=== PATIENT | male | born 1930 | race Caucasian/White ===

== ENCOUNTER 2020-09-27 12:02 | Inpatient (IN) ==
[2020-09-27] MEDS ORDERED: ALBUT/IPRATROP 3MG/0.5MG NEB 3 ML VIAL INH STA (12:38)
[2020-09-27] MEDS ORDERED: methylPREDNISolone 125 MG/2 ML VIAL IV STA (12:38)
[2020-09-27 12:50] LABS: Basophils # (auto) 0.04 K/uL (0-0.2); Basophils % (auto) 0.9 %; Eosinophils # (auto) 0.06 K/uL (0-0.5); Eosinophils % (auto) 1.3 %; Hematocrit (blood only) 49.9 % (42-52); Hemoglobin 16.7 g/dL (14.0-18.0); Immature Granulocytes # (auto) 0.01 K/uL (0.00-0.02); Immature Granulocytes % (auto) 0.2 %; Lymphocytes # (auto) 0.75 K/uL (1.2-3.4); Lymphocytes % (auto) 16.8 %; Mean Corpuscular Hemoglobin 33.7 pg (25-34); Mean Corpuscular Hgb Conc 33.5 g/dL (32-36); Mean Corpuscular Volume 100.6 fL (80-100); Mean Platelet Volume 11.9 fL (7.4-10.4); Monocytes # (auto) 0.57 K/uL (0.11-0.59); Monocytes % (auto) 12.8 %; Neutrophils # (auto) 3.03 K/uL (1.4-6.5); Platelet Count 122 K/uL (130-400); RDW Coefficient of Variation 14.4 % (11.5-14.5); RDW Standard Deviation 53.1 fL (36.4-46.3); Red Blood Count 4.96 M/uL (4.7-6.1); White Blood Count 4.46 K/uL (4.8-10.8)
[2020-09-27 12:57] LABS: Albumin Level 3.4 gm/dl (3.4-5.0); BUN Creatinine Ratio 15.6 (10-20); Calcium 9.1 mg/dl (8.5-10.1); Creatinine Clr Calc Pharmacy 46.4 ml/min; Est GFR (African American) 61.8; Est GFR (Non-African American) 53.3; Potassium 4.5 mmol/L (3.5-5.1)
[2020-09-27 13:00] LABS: INR 1.1 (0.9-1.1); Partial Thromboplastin Ratio 0.9; Partial Thromboplastin Time 24.2 Seconds (21.0-31.0); Prothrombin Time 11.3 Seconds (9.0-12.0)
[2020-09-27 13:01] LABS: Albumin Globulin Ratio 0.8 (0.9-2); Bilirubin,Total 0.9 mg/dl (0.2-1); Globulin 4.2 gm/dl (2.5-4.0); Total Protein 7.6 gm/dl (6.4-8.2); Troponin I 0.03 ng/ml (0-0.045)
[2020-09-27 13:13] LABS: Toxic Granulation 1+
--- NOTE | 2020-09-27 13:18 | XRay Report ---
XR chest 1V portable HISTORY: Dyspnea COMPARISON: Chest 06/10/2011. FINDINGS: No pneumothorax. Small right and trace left pleural effusions. Hazy focal density within th e left midlung zone. The right upper lobe is clear. Progressive consolidation within the right lower lung zone. The heart remains borderline enlarged. There are poststernotomy changes. No evidence for p ulmonary edema. No pneumothorax. Patchy densities at the left lung base of also slightly progressed. IMPRESSION: 1. Progressive bibasilar airspace opacities and a new left midlung zone hazy airspace opacity. This i s concerning for pneumonia. 1-2 month chest x-ray follow-up recommended to ensure resolution. 2. Small right and trace left pleural effusions. ACT 112: Negative or not required by law. Electronically signed by: Marlon Hwang M.D. 09/27/2020 1:17 PM
[2020-09-27 13:34] LABS: Appearance Urine Clear (Clear); Bilirubin Urine Negative (Negative); Blood Urine Negative (Negative); Color Urine Yellow; Glucose Urine UA Negative (Negative); Ketones Urine Negative (Negative); Leukocyte Esterase Urine Negative (Negative); Nitrite Urine Negative (Negative); Protein Urine Negative (Negative); Specific Gravity Urine 1.006 (1.000-1.030); Urobilinogen Urine Negative (Negative)
[2020-09-27] MEDS ORDERED: AZITHROMYCIN 500 MG in DEXTROSE 5% 250 ML IV STA (13:53)
[2020-09-27] MEDS ORDERED: cefTRIAXone SODIUM 2,000 MG/70 ML BAG IV STA (13:53)
[2020-09-27] MEDS ORDERED: OPTIRAY 320 125ml IV ONE (14:08)
--- NOTE | 2020-09-27 14:37 | CT Scan Report ---
CHEST CTA for PULMONARY ARTERIES CT DOSE: 524.50 mGycm HISTORY: PE, PNA, L chest pain w cough TECHNIQUE: Multiaxial CT images of the chest were performed following the intravenous administration of contrast to evaluate the pulmonary arteries. Maximal intensity projection images were also obtaine d. A dose lowering technique was utilized adhering to the principles of ALARA. COMPARISON STUDY: Chest 09/27/2020. FINDINGS: Moderate calcified plaque within the normal caliber thoracic aorta. No evidence for an aort ic dissection. The heart is mildly enlarged. Nondiagnostic evaluation of the majority of the bilatera l lower lobe segmental and subsegmental pulmonary arteries as well as the right middle lobe subsegmen jorge pulmonary arteries due to the motion artifact. The remaining pulmonary arteries show no filling d efects to suggest pulmonary embolus. Limited views of the upper abdomen demonstrate a normal liver, s pleen, and adrenal glands. Normal esophagus. No pericardial effusion. There is a small partially locu lated left pleural effusion. This includes a small focus of loculated fluid within the superior aspec t of the left major fissure. This accounts for the chest x-ray abnormality. There is a moderate right pleural effusion. Multiple calcified mediastinal and bilateral hilar lymph nodes. Best seen on image 62 there is a 3.1 x 2.1 cm oval-shaped soft tissue nodule which appears to be located within the pos terior mediastinum adjacent to the esophagus. This could also be located within the adjacent medial a spect of the right lower lobe. This could represent an enlarged lymph node, posterior mediastinal les ion, or possibly a right lower lobe lesion. This should be reassessed once the patient's right pleura l effusion has decreased in size or resolved. No suspicious lytic or blastic osseous lesions. There a re poststernotomy changes. No pneumothorax. Mild interlobular septal thickening within the upper lung zones suggests mild congestive change. A few scattered linear densities within the left upper lobe f avor scarring or atelectasis. Left basilar linear densities also favors subsegmental atelectasis. Pun ctate calcified granuloma within the right middle lobe. Consolidation seen within the base of the rig ht lower lobe and lingula. This favors atelectasis. A superimposed pneumonia could also have a simila r appearance. IMPRESSION: 1. No evidence for pulmonary embolus with limitations as described above. 2. Moderate right and small left pleural effusions. The left upper lobe density seen on the same day chest x-ray corresponds to a small amount of loculated pleural fluid. 3. A 3.1 x 2.1 cm oval-shaped soft tissue nodule which appears to be located within the posterior med iastinum adjacent to the esophagus. This could also be located within the adjacent medial aspect of t he right lower lobe. This could represent an enlarged lymph node, posterior mediastinal lesion, or po ssibly a right lower lobe lesion. This should be reassessed once the patient's right pleural effusion has decreased in size or resolved. 4. Mild congestive change. 5. Consolidation seen within the base of the right lower lobe and lingula. This favors atelectasis. A superimposed pneumonia could also have a similar appearance. ACT 112: Negative or not required by law. Electronically signed by: Marlon Hwang M.D. 09/27/2020 2:36 PM
--- NOTE | 2020-09-27 17:01 | History & Physical Report ---
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 Acute hypoxic respiratory failure Community acquired pneumonia Loculated pleural effusion -Hypoxic at 86% on room air now saturating at 97% on 2L NC -CTA chest with moderate right and small left pleural effusions. The left upper lobe density seen on the same day chest x-ray corresponds to a small amount of loculated pleural fluid. Also with consolidation seen within the base of the right lower lobe and lingula favoring atelectasis vs pneumonia -Given albuterol breathing treatment, Solu-Medrol, Rocephin and azithromycin in ED. Blood and sputum cultures pending -Plan to continue empiric abx and Duonebs QID PRN. Mucinex, Tessalon Perles PRN. Follow cultures. Covid screen negative. Continue supplemental O2 -Routine pulmonology consult. NPO @ [place] in case of procedure tomorrow Soft tissue nodule on CTA chest -CTA chest with a "3.1 x 2.1 cm oval-shaped soft tissue nodule which appears to be located within the posterior mediastinum adjacent to the esophagus. This could also be located within the adjacent medial aspect of the right lower lobe. This could represent an enlarged lymph node, posterior mediastinal lesion, or possibly a right lower lobe lesion" -Appreciate pulm recommendations CAD H/o CABG. No chest pain or acute EKG changes. Continue beta bre, statin HTN Continue Enalapril, Toprol CKD III Kidney function at baseline. Continue monitoring with daily BMP DVT Ppx: SQ heparin 5000 u this evening x 1 and then SCDs until after pulm evaluates Code status: DNR per discussion with patient PCP: Trevor Dispo: Admit to med/surg. Discharge planning ordered. Patient seen in collaboration with Dr. Whelan. Please see addendum. 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 Endorses productive cough and pleuritic chest pain. Dyspnea on exertion. Denies any fever, chills or body aches. No lightheadedness or headache. No palpitations, wheezing, nausea, vomiting, abdominal pain, dysuria, diarrhea or constipation. Has history of COPD but does not require oxygen at baseline. Allergies Allergy/AdvReac Type Severity Reaction Status Date / Time No Known Allergies Allergy Unknown Verified 01/28/15 10:08 Home Medications Medication Instructions Recorded Confirmed Type allopurinol 100 mg PO DAILY 09/27/20 09/27/20 History aspirin 325 mg PO DAILY 09/27/20 09/27/20 History ciprofloxacin-dexamethasone 1 drp UD 09/27/20 09/27/20 History [Ciprodex] enalapril maleate 5 mg PO DAILY 09/27/20 09/27/20 History fluticasone propionate [Flovent 2 puff INHALATION DIRECTED 09/27/20 09/27/20 History HFA] gabapentin 100 mg PO BID 09/27/20 09/27/20 History metoprolol succinate 25 mg PO DIRECTED 09/27/20 09/27/20 History simvastatin 10 mg PO DAILY 09/27/20 09/27/20 History tamsulosin 0.4 mg PO DAILY 09/27/20 09/27/20 History vitamins A,C,[id number]-vxvn-liztgo 1 cap PO BID 09/27/20 09/27/20 History [PreserVision AREDS] Past Med/Surg History Medical History (Updated 09/27/20 @ 18:25 by Flory Johnson PA-C) CAD (coronary artery disease) Carotid stenosis CKD (chronic kidney disease), stage III COPD (chronic obstructive pulmonary disease) History of DVT (deep vein thrombosis) History of malignant neoplasm of parotid gland HTN (hypertension) Surgical History (Updated 09/27/20 @ 17:57 by Flory Johnson PA-C) History of coronary artery bypass graft History of right-sided carotid endarterectomy Hx of parotidectomy Family History Other Heart disease Social History Smoking Status: Former smoker Hx Alcohol Use: No Current Living Situation: Spouse Feels Safe at Home: Yes Review of Systems Review of Systems: At least ten systems reviewed and negative except as noted in the HPI. Physical Exam Physical Exam: General Appearance: WD/WN, vitals as above, NAD, sitting up in bed, pleasant, conversing easily Head: normocephalic, atraumatic Eyes: normal inspection, PERRL, conjunctivae normal, anicteric sclerae ENT: external ear and nose normal, oropharynx normal Neck: normal visual inspection, trachea midline, no thyromegaly Respiratory: normal respiratory effort, scattered crackles noted in L lung, diminished at bases, no wheezing. No accessory muscle use Cardiovascular: regular rate, rhythm, no murmur appreciated, normal peripheral pulses, no BLE edema. Vessels: no JVD Chest: normal inspection of chest Abdomen/GI: normal bowel sounds, soft, nontender, no hepatosplenomegaly Extremities/Musculoskeletal: no cyanosis or clubbing, extremities motor strength 5/5 Neurologic: PERRL, EOMI, accommodation nl, no face palsy, no dysarthria, CN's II-XI intact bilaterally and moves all extremities Psychiatric: A+Ox3, euthymic affect Skin: no rashes, normal color, warm/dry Results & Data Results & Data ([facility]) Vital Signs (Past 12 Hours) Vital Signs Temp Pulse Pulse Pulse Resp Resp BP 09/27/20 16:26 105 H 22 09/27/20 14:59 84 18 09/27/20 13:03 90 18 09/27/20 12:10 36.8 C 71 20 172/67 H BP Pulse Ox Pulse Ox 09/27/20 16:26 86 L 09/27/20 14:59 140/76 98 09/27/20 13:03 95 09/27/20 12:10 96 Laboratory Results Short CBC 09/27/20 Range/Units 12:25 WBC 4.46 L (4.8-10.8) K/uL Hgb 16.7 (14.0-18.0) g/dL Hct 49.9 (42-52) % Plt Count 122 L (130-400) K/uL BMP 09/27/20 12:25 Sodium 139 Potassium 4.5 Chloride 104 Carbon Dioxide 32 BUN 19 H Creatinine 1.20 Glucose 94 Calcium 9.1 Cardiac Enzymes 09/27/20 Range/Units 12:25 Troponin I 0.030 (0-0.045) ng/ml Liver Function 09/27/20 Range/Units 12:25 Total Bilirubin 0.9 (0.2-1) mg/dl AST 24 (15-37) U/L ALT 28 (12-78) U/L Alkaline Phosphatase 119 H (45-117) U/L Albumin 3.4 (3.4-5.0) gm/dl Urine 09/27/20 Range/Units 13:25 Urine Color Yellow Urine Appearance Clear (Clear) Urine pH 6.0 (4.5-7.5) Ur Specific [place] 1.006 (1.000-1.030) Urine Protein Negative (Negative) Urine Glucose (UA) Negative (Negative) Diagnostic Findings CXR: IMPRESSION: 1. Progressive bibasilar airspace opacities and a new left midlung zone hazy airspace opacity. This is concerning for pneumonia. 1-2 month chest x-ray follow-up recommended to ensure resolution. 2. Small right and trace left pleural effusions. CTA chest: IMPRESSION: 1. No evidence for pulmonary embolus with limitations as described above. 2. Moderate right and small left pleural effusions. The left upper lobe density seen on the same day chest x-ray corresponds to a small amount of loculated pleural fluid. 3. A 3.1 x 2.1 cm oval-shaped soft tissue nodule which appears to be located within the posterior mediastinum adjacent to the esophagus. This could also be located within the adjacent medial aspect of the right lower lobe. This could represent an enlarged lymph node, posterior mediastinal lesion, or possibly a right lower lobe lesion. This should be reassessed once the patient's right pleural effusion has decreased in size or resolved. 4. Mild congestive change. 5. Consolidation seen within the base of the right lower lobe and lingula. This favors atelectasis. A superimposed pneumonia could also have a similar appearance. Supervising Physician Co-Signing Physician Notes I saw this patient with the physician assistant corporation counsel, I participated in the history, physical, review of systems, and physical exam. I reviewed the medications with the patient and the physician assistant corporation counsel and helped reconcile the medications. I helped take a detailed family and social history as well. I formulated the assessment and plan personally with the physician assistant corporation counsel and went over it with the patient. Physical Exam Gen-AAO x 3, NAD, Afebrile Head-NCAT, EOMI, PERRLA, Anicteric Sclera, No Posterior Pharyngeal Erythema Neck-Supple, No JVD, No Thyromegaly, No Masses, No LAD, No Bruits Lungs-Faint B/L L>R Rales, No Rhonchi, No Wheezing, No Crepitus Chest-No S4, +S1, +S2, No S3, No Murmurs, No Rubs, No Gallops, No Ectopy Abdomen-Soft, Bowel Sounds Present, Non Tender, Non Distended, No Hepatomegaly, No Splenomegaly, No Palpable Masses, No Rebound, No Rigidity, No Guarding Musculoskeletal-Full Range of Motion Bilaterally, No CVAT Extremities-No Cyanosis, No Clubbing, No Edema Nuero-Cranial Nerves II-XII grossly intact, Motor WNL, DTRs WNL, Strength WNL, Non Focal Psych-Normal Mood
[2020-09-27] MEDS ORDERED: POLYETHYLENE (MIRALAX) 17 GM PACK PO PRN (19:22)
[2020-09-27] MEDS ORDERED: ALBUT/IPRATROP 3MG/0.5MG NEB 3 ML VIAL NEB PRN (19:22)
[2020-09-27] MEDS ORDERED: ACETAMINOPHEN 325 MG TAB PO PRN (19:22)
[2020-09-27] MEDS ORDERED: CONSULT PHARMACY STA (19:22)
[2020-09-27] MEDS ORDERED: BENZONATATE 100 MG CAPSULE PO PRN (19:22)
--- NOTE | 2020-09-27 20:11 | Emergency Department Note ---
Impression & Plan Pneumonia, Pleural effusion ED Provider Note NAME: WEN RIVER AGE: 89 SEX: M ARRIVES VIA: Walk-In INFORMANT: Patient, ED PROVIDER(S): Nancie Chong MD CHIEF COMPLAINT: Cough, left-sided chest pain PLAN: Disposition: Inpatient Condition: Fair Referral: Hospitalist MEDICAL DECISION MAKING: This patient was evaluated and appeared to be in no significant distress. IV access was obtained and laboratory work was drawn. The patient was given aspirin 324 mg to chew his he had not taken aspirin prior to arrival. EKG was performed and reveals no evidence of acute ischemia but there is evidence of previous myocardial injury. Patient was medicated with 60 mg of IV Solu-Medrol and a DuoNeb treatment. Chest x-ray was performed and is concerning for bilateral pleural effusion. Patient was noted to have a mild leukopenia. He was Covid negative. CT imaging of the chest was performed to better define the pleural effusion and potential underlying cause. The study is significant for a loculated pleural effusion, pulmonary consolidation of the right lower lobe. Blood cultures were obtained and the patient was medicated with IV ceftriaxone and IV azithromycin. Case was discussed with the hospitalist service who will evaluate the patient for further management. Of note the patient was stable on my reevaluation but was hypoxic to 86 to 87% on room air with ambulation. He did point out the IV infiltration of contrast from his CT scan in the right upper extremity. There is moderate subcutaneous swelling noted, but the patient states it is feeling somewhat improved. Triage Nursing notes reviewed. Prior medical records reviewed Vital Signs: reviewed and remarkable for hypertension Differential diagnosis: Reactive airway disease, pneumonia, pneumothorax, COPD, CHF, infections, cardiac ischemia, pulmonary embolism, musculoskeletal, gastrointestinal, as well as other pathologies. ER treatment provided: IV azithromycin 500 mg IV ceftriaxone 2 g DuoNeb treatment IV Solu-Medrol 60 mg Diagnostics interpreted by me: ECG: Normal sinus rhythm with sinus arrhythmia at 89 bpm. Previous anterior infarct with deep Q waves. Left axis deviation. QTC is 463. No PVC, no PAC. Poor quality baseline for interpretation. No significant ST abnormality appreciated. Cardiac Monitoring: An order for cardiac monitoring was placed and the patient is noted to be in a normal sinus rhythm at 88 bpm. Laboratory studies: See below Imaging studies: XR chest 1V portable HISTORY: Dyspnea COMPARISON: Chest 06/10/2011. FINDINGS: No pneumothorax. Small right and trace left pleural effusions. Hazy focal density within the left midlung zone. The right upper lobe is clear. Progressive consolidation within the right lower lung zone. The heart remains borderline enlarged. There are poststernotomy changes. No evidence for pulmonary edema. No pneumothorax. Patchy densities at the left lung base of also slightly progressed. IMPRESSION: 1. Progressive bibasilar airspace opacities and a new left midlung zone hazy airspace opacity. This is concerning for pneumonia. 1-2 month chest x-ray follow-up recommended to ensure resolution. 2. Small right and trace left pleural effusions. ACT 112: Negative or not required by law. Electronically signed by: Marlon Hwang M.D. 09/27/2020 1:17 PM Dictated: 09/27/20 1315Transcribed: 09/27/201314 CHEST CTA for PULMONARY ARTERIES CT DOSE: 524.50 mGycm HISTORY: PE, PNA, L chest pain w cough TECHNIQUE: Multiaxial CT images of the chest were performed following the intravenous administration of contrast to evaluate the pulmonary arteries. Maximal intensity projection images were also obtained. A dose lowering technique was utilized adhering to the principles of ALARA. COMPARISON STUDY: Chest 09/27/2020. FINDINGS: Moderate calcified plaque within the normal caliber thoracic aorta. No evidence for an aortic dissection. The heart is mildly enlarged. Nondiagnostic evaluation of the majority of the bilateral lower lobe segmental and subsegmental pulmonary arteries as well as the right middle lobe subsegmental pulmonary arteries due to the motion artifact. The remaining pulmonary arteries show no filling defects to suggest pulmonary embolus. Limited views of the upper abdomen demonstrate a normal liver, spleen, and adrenal glands. Normal esophagus. No pericardial effusion. There is a small partially loculated left pleural effusion. This includes a small focus of loculated fluid within the superior aspect of the left major fissure. This accounts for the chest x-ray abnormality. There is a moderate right pleural effusion. Multiple calcified mediastinal and bilateral hilar lymph nodes. Best seen on image 62 there is a 3.1 x 2.1 cm oval-shaped soft tissue nodule which appears to be located within the posterior mediastinum adjacent to the esophagus. This could also be located within the adjacent medial aspect of the right lower lobe. This could represent an enlarged lymph node, posterior mediastinal lesion, or possibly a right lower lobe lesion. This should be reassessed once the patient's right pleural effusion has decreased in size or resolved. No suspicious lytic or blastic osseous lesions. There are poststernotomy changes. No pneumothorax. Mild interlobular septal thickening within the upper lung zones suggests mild congestive change. A few scattered linear densities within the left upper lobe favor scarring or atelectasis. Left basilar linear densities also favors subsegmental atelectasis. Punctate calcified granuloma within the right middle lobe. Consolidation seen within the base of the right lower lobe and lingula. This favors atelectasis. A superimposed pneumonia could also have a similar appearance. IMPRESSION: 1. No evidence for pulmonary embolus with limitations as described above. 2. Moderate right and small left pleural effusions. The left upper lobe density seen on the same day chest x-ray corresponds to a small amount of loculated ple ural fluid. 3. A 3.1 x 2.1 cm oval-shaped soft tissue nodule which appears to be located within the posterior mediastinum adjacent to the esophagus. This could also be located within the adjacent medial aspect of the right lower lobe. This could represent an enlarged lymph node, posterior mediastinal lesion, or possibly a right lower lobe lesion. This should be reassessed once the patient's right pleural effusion has decreased in size or resolved. 4. Mild congestive change. 5. Consolidation seen within the base of the right lower lobe and lingula. This favors atelectasis. A superimposed pneumonia could also have a similar appearance. ACT 112: Negative or not required by law. Electronically signed by: Marlon Hwang M.D. 09/27/2020 2:36 PM Dictated: 09/27/20 142Transcribed: 09/27/20 142 Consultation(s): Hospitalist HPI: This patient is an 89-year-old male who presents to the emergency department with complaints of left sided chest pain, particularly after coughing. The patient states he has been coughing for about 2 weeks and developed the chest pain yesterday. He does have a history of coronary artery disease and is status post CABG several years ago. He denies any radiation of the pain to his neck, arm or back. He denies any fevers but does admit to some sputum production. He states this is not an uncommon occurrence for him. He does have a remote history of smoking and quit around the age of "41 or 51." He denies any change in the pain with exertion but does state it hurts more when he takes a deep breath or coughs. ROS: See above HPI for pertinent positives & negatives. A total of 10 systems reviewed and were otherwise negative. PAST MEDICAL HISTORY:See Below PAST SURGICAL HISTORY:See Below FAMILY HISTORY:See Below SOCIAL HISTORY:See Below HOME MEDICATIONS:See Below ALLERGIES:See Below VITALS:See Below PHYSICAL EXAMINATION: Vital signs reviewed. General: Well-appearing 89-year-old male, in no significant distress. HEENT: No scleral icterus, PERRLA, neck supple. Atraumatic. Cardiovascular: Regular rate and rhythm, no extra sounds. Pulmonary: Subtle wheezing to auscultation bilaterally, normal work of kwaku thing. On nasal cannula oxygen Abdomen: Soft, nontender, nondistended, positive bowel sounds. Musculoskeletal: Atraumatic, no peripheral edema. Neurologic: Patient awake alert and oriented x 3. Skin: Warm, dry, no rash Nancie Chong MD Past Med/Surg History Medical History CAD (coronary artery disease) Carotid stenosis CKD (chronic kidney disease), stage III COPD (chronic obstructive pulmonary disease) History of DVT (deep vein thrombosis) History of malignant neoplasm of parotid gland HTN (hypertension) Surgical History History of coronary artery bypass graft History of right-sided carotid endarterectomy Hx of parotidectomy Family History Other Heart disease Social History Smoking Status: Never smoker Hx Alcohol Use: No Hx Substance Use: No Preferred Language: Hungarian Nurse Licensed Practical Required: No Current Living Situation: Spouse Current Living Situation Comment: Home with Other Information That Helps Us Care for You: No Feels Safe at Home: Yes Assistive Devices: Hearing Aid - Right Allergies Allergies Allergy/AdvReac Type Severity Reaction Status Date / Time No Known Allergies Allergy Unknown Verified 01/28/15 10:08 Home Meds Home Medications Medication Instructions Recorded Confirmed allopurinol 100 mg PO DAILY 09/27/20 09/27/20 aspirin 325 mg PO DAILY 09/27/20 09/27/20 ciprofloxacin-dexamethasone 1 drp UD 09/27/20 09/27/20 [Ciprodex] enalapril maleate 5 mg PO DAILY 09/27/20 09/27/20 fluticasone propionate [Flovent 2 puff INHALATION DIRECTED 09/27/20 09/27/20 HFA] gabapentin 100 mg PO BID 09/27/20 09/27/20 metoprolol succinate 25 mg PO DAILY 09/27/20 09/27/20 simvastatin 10 mg PO DAILY 09/27/20 09/27/20 tamsulosin 0.4 mg PO DAILY 09/27/20 09/27/20 vitamins A,C,P-[id number]-rmaajw 1 cap PO BID 09/27/20 09/27/20 [PreserVision AREDS] Results & Data (ED) Vital Signs Vital Signs - 24 hr 09/27/20 12:10 09/27/20 12:23 09/27/20 12:30 Temperature 36.8 C Temperature Source Temporal Artery Scan Pulse Rate 71 88 88 Pulse Rate [Apical] Pulse Rate [Exercises] Pulse Rate from SpO2 Sensor 88 Respiratory Rate 20 24 31 H Respiratory Rate [Exercises] Respiratory Effort / Characteristics Respiratory Depth Normal Blood Pressure 172/67 H Blood Pressure [Right Arm] Blood Pressure Mean 102 Blood Pressure Mean [Right Arm] Blood Pressure Position [Right Arm] Pulse Oximetry 96 90 Pulse Oximetry [Exercises] Oxygen Delivery Method Room Air Oxygen Flow Rate Sepsis Recent Fever Within 48 Hours No Sepsis New/Unexplained Change in Mental Status N/A Sepsis Action Taken by Nursing No Action Required 09/27/20 13:00 09/27/20 13:03 09/27/20 13:30 Temperature Temperature Source Pulse Rate 86 Pulse Rate [Apical] 90 Pulse Rate [Exercises] Pulse Rate from SpO2 Sensor 86 87 Respiratory Rate 31 H 18 26 H Respiratory Rate [Exercises] Respiratory Effort / Characteristics Non-Labored Spontaneous Respiratory Depth Blood Pressure Blood Pressure [Right Arm] Blood Pressure Mean Blood Pressure Mean [Right Arm] Blood Pressure Position [Right Arm] Pulse Oximetry 97 95 98 Pulse Oximetry [Exercises] Oxygen Delivery Method Nasal Cannula Oxygen Flow Rate 2 Sepsis Recent Fever Within 48 Hours Sepsis New/Unexplained Change in Mental Status Sepsis Action Taken by Nursing 09/27/20 14:00 09/27/20 14:30 09/27/20 14:59 Temperature Temperature Source Pulse Rate 90 Pulse Rate [Apical] 84 Pulse Rate [Exercises] Pulse Rate from SpO2 Sensor 81 90 Respiratory Rate 24 28 H 18 Respiratory Rate [Exercises] Respiratory Effort / Characteristics Respiratory Depth Blood Pressure Blood Pressure [Right Arm] 140/76 Blood Pressure Mean Blood Pressure Mean [Right Arm] 97 Blood Pressure Position [Right Arm] Pulse Oximetry 95 95 98 Pulse Oximetry [Exercises] Oxygen Delivery Method Oxygen Flow Rate Sepsis Recent Fever Within 48 Hours Sepsis New/Unexplained Change in Mental Status Sepsis Action Taken by Nursing 09/27/20 15:00 09/27/20 15:30 09/27/20 16:00 Temperature Temperature Source Pulse Rate 94 H 93 H 92 H Pulse Rate [Apical] Pulse Rate [Exercises] Pulse Rate from SpO2 Sensor 94 H 94 H Respiratory Rate 27 H 27 H 25 H Respiratory Rate [Exercises] Respiratory Effort / Characteristics Respiratory Depth Blood Pressure Blood Pressure [Right Arm] Blood Pressure Mean Blood Pressure Mean [Right Arm] Blood Pressure Position [Right Arm] Pulse Oximetry 95 93 Pulse Oximetry [Exercises] Oxygen Delivery Method Oxygen Flow Rate Sepsis Recent Fever Within 48 Hours Sepsis New/Unexplained Change in Mental Status Sepsis Action Taken by Nursing 09/27/20 16:26 09/27/20 16:30 09/27/20 16:59 Temperature Temperature Source Pulse Rate 96 H Pulse Rate [Apical] 94 H Pulse Rate [Exercises] 105 H Pulse Rate from SpO2 Sensor 96 H Respiratory Rate 20 20 Respiratory Rate [Exercises] 22 Respiratory Effort / Characteristics Respiratory Depth Blood Pressure Blood Pressure [Right Arm] 144/69 H Blood Pressure Mean Blood Pressure Mean [Right Arm] 94 Blood Pressure Position [Right Arm] Lying Pulse Oximetry 94 97 Pulse Oximetry [Exercises] 86 L Oxygen Delivery Method Room Air Nasal Cannula Nasal Cannula Oxygen Flow Rate 2 2 Sepsis Recent Fever Within 48 Hours Sepsis New/Unexplained Change in Mental Status Sepsis Action Taken by Nursing 09/27/20 17:02 Temperature Temperature Source Pulse Rate 66 Pulse Rate [Apical] Pulse Rate [Exercises] Pulse Rate from SpO2 Sensor Respiratory Rate 20 Respiratory Rate [Exercises] Respiratory Effort / Characteristics Respiratory Depth Blood Pressure Blood Pressure [Right Arm] Blood Pressure Mean Blood Pressure Mean [Right Arm] Blood Pressure Position [Right Arm] Pulse Oximetry Pulse Oximetry [Exercises] Oxygen Delivery Method Oxygen Flow Rate Sepsis Recent Fever Within 48 Hours Sepsis New/Unexplained Change in Mental Status Sepsis Action Taken by [facility] Medications Current Medication List: was personally reviewed by me Laboratory Data Attestation: I reviewed the patient's lab results. Result diagrams: 09/27/20 12:25 09/27/20 12:25 Lab Results 09/27/20 09/27/20 09/27/20 Range/Units 12:25 12:25 12:25 WBC 4.46 L (4.8-10.8) K/uL RBC 4.96 (4.7-6.1) M/uL Hgb 16.7 (14.0-18.0) g/dL Hct 49.9 (42-52) % MCV 100.6 H (80-100) fL MCH 33.7 (25-34) pg MCHC 33.5 (32-36) g/dL RDW Std Deviation 53.1 H (36.4-46.3) fL RDW Coeff of Hakeem 14.4 (11.5-14.5) % Plt Count 122 L (130-400) K/uL MPV 11.9 H (7.4-10.4) fL Immature Gran % (Auto) 0.2 % Neut % (Auto) 68.0 % Lymph % (Auto) 16.8 % [place] % (Auto) 12.8 % Eos % (Auto) 1.3 % Baso % (Auto) 0.9 % Neut # (Auto) 3.03 (1.4-6.5) K/uL Lymph # (Auto) 0.75 L (1.2-3.4) K/uL [place] # (Auto) 0.57 (0.11-0.59) K/uL Eos # (Auto) 0.06 (0-0.5) K/uL Baso # (Auto) 0.04 (0-0.2) K/uL Immature Gran # (Auto) 0.01 (0.00-0.02) K/uL Toxic Granulation 1+ PT 11.3 (9.0-12.0) Seconds INR 1.1 (0.9-1.1) APTT 24.2 (21.0-31.0) Seconds PTT Ratio 0.9 Sodium 139 (136-145) mmol/L Potassium 4.5 (3.5-5.1) mmol/L Chloride 104 (98-107) mmol/L Carbon Dioxide 32 (21-32) mmol/L Anion Gap 3.0 (3-11) BUN 19 H (7-18) mg/dl Creatinine 1.20 (0.6-1.4) mg/dl Est Cr Clr Drug Dosing 46.4 ml/min Est GFR ( Amer) 61.8 Est GFR (Non-Af Amer) 53.3 BUN/Creatinine Ratio 15.6 (10-20) Glucose 94 (70-99) mg/dl Calcium 9.1 (8.5-10.1) mg/dl Magnesium 2.0 (1.8-2.4) mg/dl Total Bilirubin 0.9 (0.2-1) mg/dl AST 24 (15-37) U/L ALT 28 (12-78) U/L Alkaline Phosphatase 119 H (45-117) U/L Troponin I 0.030 (0-0.045) ng/ml Total Protein 7.6 (6.4-8.2) gm/dl Albumin 3.4 (3.4-5.0) gm/dl Globulin 4.2 H (2.5-4.0) gm/dl Albumin/Globulin Ratio 0.8 L (0.9-2) Urine Color Urine Appearance (Clear) Urine pH (4.5-7.5) Ur Specific [place] (1.000-1.030) Urine Protein (Negative) Urine Glucose (UA) (Negative) Urine Ketones (Negative) Urine Blood (Negative) Urine Nitrite (Negative) Urine Bilirubin (Negative) Urine Urobilinogen (Negative) Ur Leukocyte Esterase (Negative) COVID-19 Eval Order SARS-CoV-2, RNA, NAAT (NEGATIVE) 09/27/20 09/27/20 09/27/20 Range/Units 12:55 12:55 13:25 WBC (4.8-10.8) K/uL RBC (4.7-6.1) M/uL Hgb (14.0-18.0) g/dL Hct (42-52) % MCV (80-100) fL MCH (25-34) pg MCHC (32-36) g/dL RDW Std Deviation (36.4-46.3) fL RDW Coeff of Hakeem (11.5-14.5) % Plt Count (130-400) K/uL MPV (7.4-10.4) fL Immature Gran % (Auto) % Neut % (Auto) % Lymph % (Auto) % [place] % (Auto) % Eos % (Auto) % Baso % (Auto) % Neut # (Auto) (1.4-6.5) K/uL Lymph # (Auto) (1.2-3.4) K/uL [place] # (Auto) (0.11-0.59) K/uL Eos # (Auto) (0-0.5) K/uL Baso # (Auto) (0-0.2) K/uL Immature Gran # (Auto) (0.00-0.02) K/uL Toxic Granulation PT (9.0-12.0) Seconds INR (0.9-1.1) APTT (21.0-31.0) Seconds PTT Ratio Sodium (136-145) mmol/L Potassium (3.5-5.1) mmol/L Chloride (98-107) mmol/L Carbon Dioxide (21-32) mmol/L Anion Gap (3-11) BUN (7-18) mg/dl Creatinine (0.6-1.4) mg/dl Est Cr Clr Drug Dosing ml/min Est GFR ( Amer) Est GFR (Non-Af Amer) BUN/Creatinine Ratio (10-20) Glucose (70-99) mg/dl Calcium (8.5-10.1) mg/dl Magnesium (1.8-2.4) mg/dl Total Bilirubin (0.2-1) mg/dl AST (15-37) U/L ALT (12-78) U/L Alkaline Phosphatase (45-117) U/L Troponin I (0-0.045) ng/ml Total Protein (6.4-8.2) gm/dl Albumin (3.4-5.0) gm/dl Globulin (2.5-4.0) gm/dl Albumin/Globulin Ratio (0.9-2) Urine Color Yellow Urine Appearance Clear (Clear) Urine pH 6.0 (4.5-7.5) Ur Specific [place] 1.006 (1.000-1.030) Urine Protein Negative (Negative) Urine Glucose (UA) Negative (Negative) Urine Ketones Negative (Negative) Urine Blood Negative (Negative) Urine Nitrite Negative (Negative) Urine Bilirubin Negative (Negative) Urine Urobilinogen Negative (Negative) Ur Leukocyte Esterase Negative (Negative) COVID-19 Eval Order Covid19 [facility]Now [facility] SARS-CoV-2, RNA, NAAT NEGATIVE (NEGATIVE) Administered Medications Discontinued Medications Albuterol (Albut/Ipratrop 3mg/0.5mg Neb 3 Ml Vial) 3 ml INH NOW STA Stop: 09/27/20 12:39 Last Admin: 09/27/20 13:01 Dose: 3 ml Documented by: [id number] Ceftriaxone Sodium (Rocephin) 2,000 mg in 70 mls @ 140 mls/hr IV NOW STA Stop: 09/27/20 14:22 Last Infusion: 09/27/20 15:50 Dose: 0 mls/hr Documented by: [id number] Admin: 09/27/20 14:55 Dose: 140 mls/hr Documented by: [id number] Azithromycin 500 mg/ Dextrose 255 mls @ 127.5 mls/hr IV NOW STA Stop: 09/27/20 15:52 Last Infusion: 09/27/20 17:10 Dose: 0 mls/hr Documented by: [id number] Admin: 09/27/20 14:55 Dose: 127.5 mls/hr Documented by: [id number] Ioversol (Optiray 320 125ml) 119 ml IV ONCE ONE Stop: 09/27/20 14:09 Last Admin: 09/27/20 14:08 Dose: 119 ml Documented by: [id number] Methylprednisolone (Methylprednisolone 125 Mg/2 Ml Vial) 60 mg IV NOW STA Stop: 09/27/20 12:39 Last Admin: 09/27/20 12:55 Dose: 60 mg Documented by: [id number] Discharge Plan Visit Data Chief Complaint: Cough Stated Complaint: COUGH,CHEST PAIN,SOB ED Provider: Nancie Chong Discharge Problem: Pneumonia, Pleural effusion Patient Disposition: Admitted As Inpatient Discharge Instructions Interventions: ED Discharge Assessment Last Done: 09/27/20 18:46 Discharge Problem: Pneumonia Qualifiers: Pneumonia type: due to unspecified organism Laterality: right Lung location: lower lobe of lung Qualified Code(s): J18.9 - Pneumonia, unspecified organism
[2020-09-27] MEDS: GABAPENTIN 100 MG CAP PO SCH (20:15)
[2020-09-27] MEDS: guaiFENesin 600 MG TABCR PO SCH (20:15)
[2020-09-27] MEDS ORDERED: HEPARIN SOD 5,000 UNIT/0.5 ML VIAL SQ ONE (21:00)
[2020-09-28 06:50] LABS: Hematocrit (blood only) 45.6 % (42-52); Hemoglobin 15.1 g/dL (14.0-18.0); Mean Corpuscular Hemoglobin 33.2 pg (25-34); Mean Corpuscular Hgb Conc 33.1 g/dL (32-36); Mean Corpuscular Volume 100.2 fL (80-100); Platelet Count 120 K/uL (130-400); Platelet Estimate Decreased (Normal); RDW Coefficient of Variation 14.6 % (11.5-14.5); RDW Standard Deviation 53.2 fL (36.4-46.3); Red Blood Count 4.55 M/uL (4.7-6.1); White Blood Count 5.77 K/uL (4.8-10.8)
[2020-09-28 07:04] LABS: BUN Creatinine Ratio 16.1 (10-20); Calcium 8.9 mg/dl (8.5-10.1); Creatinine Clr Calc Pharmacy 52.7 ml/min; Est GFR (Non-African American) 61.2; Potassium 4.6 mmol/L (3.5-5.1)
--- NOTE | 2020-09-28 08:25 | Pulmonary Consultation ---
Date of Consultation September 28, 2020 Assessment & Plan (1) Pneumonia: CT chest 09/27/2020 personally reviewed: Moderate right-sided pleural effusion, loculated left-sided pleural effusion small, mediastinal lymph node calcification. There is a soft tissue opacity appreciated in the posterior mediastinal area. There is right lower lobe consolidative process/atelectasis. Motion artifact. Centrilobular emphysema minimal. --Right-sided pleural effusion with right lower lobe consolidative process There is no previous CAT scan to compare Patient also has loculated effusion on the left side which is small. COVID-19 NAAT negative, procalcitonin negative BNP 1872 --Abnormal chest CT I do not have any previous CAT scan to compare There is a soft tissue opacity appreciated in the posterior mediastinum adjacent to esophagous Continue to monitor. --Ex-smoker Approximately 10-[id number]-[id number] smoking history Quit in his 50s. Start the patient on Incruse. Plan: Right-sided pleural effusion could be parapneumonic versus secondary to heart failure. I did discuss the possibility of thoracentesis but the patient was stating that he is feeling better and would not like to have it. I did speak with patient's daughter Nuvia who is a nurse as per patient's request. I explained patient's current condition as well as the right-sided pleural effusion on top of the loculated left pleural effusion. Risk and benefits of the procedure were explained to the patient as well as the patient's daughter. They want to think about it and let us know. For the time being I will give the patient a dose of Lasix. Please note the above document was generated using voice recognition software. It may contain grammatical, syntax or spelling errors.Any formal questions or concerns about the content, text or information contained within the body of this dictation should be directly addressed to the provider for clarification. 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 Pulmonary were consulted because of the right-sided pleural effusion. Patient was saturating only 86% at the time of admission. At the time of examination patient states that he has been having shortness of breath since last for 5 days. Progressively getting worse. He has been bringing up phlegm which is usually grayish in color. No hemoptysis. The intensity and the frequency of cough have increased. Patient denied any fever or chills. Denies any chest pain. No headache, no dizziness, no nausea, no vomiting, no diarrhea, no dysuria. Patient is not on any blood thinners at home except for aspirin. Social history: Patient quit smoking at the age of 51. He used to smoke half a pack a day. Approximately [id number] smoking history Allergies Allergy/AdvReac Type Severity Reaction Status Date / Time No Known Allergies Allergy Unknown Verified 01/28/15 10:08 Home Medications Medication Instructions Recorded Confirmed Type allopurinol 100 mg PO DAILY 09/27/20 09/27/20 History aspirin 325 mg PO DAILY 09/27/20 09/27/20 History ciprofloxacin-dexamethasone 1 drp UD 09/27/20 09/27/20 History [Ciprodex] enalapril maleate 5 mg PO DAILY 09/27/20 09/27/20 History fluticasone propionate [Flovent 2 puff INHALATION DIRECTED 09/27/20 09/27/20 History HFA] gabapentin 100 mg PO BID 09/27/20 09/27/20 History metoprolol succinate 25 mg PO DAILY 09/27/20 09/27/20 History simvastatin 10 mg PO DAILY 09/27/20 09/27/20 History tamsulosin 0.4 mg PO DAILY 09/27/20 09/27/20 History vitamins A,C,B-qikd-lltfnx 1 cap PO BID 09/27/20 09/27/20 History [PreserVision AREDS] Patient History Medical History CAD (coronary artery disease) Carotid stenosis CKD (chronic kidney disease), stage III COPD (chronic obstructive pulmonary disease) History of DVT (deep vein thrombosis) History of malignant neoplasm of parotid gland HTN (hypertension) Surgical History History of coronary artery bypass graft History of right-sided carotid endarterectomy Hx of parotidectomy Family History Other Heart disease Social History Smoking Status: Never smoker Hx Alcohol Use: No Hx Substance Use: No Preferred Language: Korean Club Car Attendant Required: No Current Living Situation: Spouse Current Living Situation Comment: Home with Other Information That Helps Us Care for You: No Feels Safe at Home: Yes Assistive Devices: Hearing Aid - Right and Oxygen - Continuous Review of Systems Review of Systems: All systems reviewed & are unremarkable except as noted in HPI & below Physical Exam Physical Exam: Constitutional: No acute distress HEENT: EOMI, PERRLA Respiratory system: Decreased air entry bilaterally, more decreased on the right side, positive crackles bilateral lower lobes, no wheeze, no rhonchi CVS: S1-S2 positive, no murmurs or gallops Abdomen: Soft, nontender, nondistended, positive bowel sounds x4, obese Extremities: +2 pulses bilaterally radialis/ dorsalis pedis, no cyanosis, +1 edema bilateral lower extremity Neuro: Awake alert oriented x3 Psych: Normal mood and affect G/U: No [place] Skin: no rashes, warm and dry Lymphatic: no cervical or axillary lymphadenopathy Results & Data Results & Data ([facility]) Vital Signs (Past 12 Hours) Vital Signs Temp Pulse Resp BP Pulse Ox 09/28/20 07:15 36.6 C 97 H 20 174/98 H 93 09/28/20 05:59 156/95 H 09/27/20 22:37 36.7 C 83 18 159/95 H 93 09/28/20 06:12 09/28/20 06:12 PG Care Time/CCT Total # of Minutes Spent Total Time Spent with Patient: Total time spent is greater than 50% in coordination of care (as documented) at patient's floor/unit and/or counseling patient: Coding Level of Care Code 08029 Initial Inpt Care Lvl 3 Diagnoses Pneumonia J18.9 Laterality: right Lung location: lower lobe of lung Pneumonia type: due to unspecified organism Pleural effusion J90 COPD (chronic obstructive pulmonary disease) J44.[address] R93.89
--- NOTE | 2020-09-28 08:41 | Hospitalist Progress Note ---
Date of Service September 28, 2020 Assessment & Plan (1) Pneumonia: (2) Pleural effusion: (3) Nodule of soft tissue: (4) COPD (chronic obstructive pulmonary disease): (5) CAD (coronary artery disease): (6) HTN (hypertension): (7) CKD (chronic kidney disease), stage III: This is an 89yo M with a PMH of COPD, CAD s/p CABG, history of parotid gland cancer (s/p parotidectomy and radiation), dyslipidemia, CKD III, HTN, thrombocytopenia, h/o carotid stenosis s/p carotid endarterectomy and other medical problems listed below who presents with cough and shortness of breath for the past few days and was found to have pneumonia, bilateral pleural effusions and soft tissue nodule. He feels a lot better today Acute hypoxic respiratory failure Community acquired pneumonia Loculated pleural effusion -Hypoxic at 86% on room air now saturating at 97% on 2L NC -CTA chest with moderate right and small left pleural effusions. The left upper lobe density seen on the same day chest x-ray corresponds to a small amount of loculated pleural fluid. Also with consolidation seen within the base of the right lower lobe and lingula favoring atelectasis vs pneumonia -Given albuterol breathing treatment, Solu-Medrol, Rocephin and azithromycin in ED. Blood and sputum cultures pending -Plan to continue empiric abx and Duonebs QID PRN. Mucinex, Tessalon Perles PRN. Follow cultures. Covid screen negative. Continue supplemental O2 -Routine pulmonology consult. NPO in case of procedure tomorrow Soft tissue nodule on CTA chest -CTA chest with a "3.1 x 2.1 cm oval-shaped soft tissue nodule which appears to be located within the posterior mediastinum adjacent to the esophagus. This could also be located within the adjacent medial aspect of the right lower lobe. This could represent an enlarged lymph node, posterior mediastinal lesion, or possibly a right lower lobe lesion" CAD H/o CABG. No chest pain or acute EKG changes. Continue beta bre, statin HTN Continue Enalapril, Toprol CKD III Kidney function at baseline. Continue monitoring with daily BMP DVT Ppx: SQ heparin 5000 u this evening x 1 and then SCDs until after pulm evaluates Code status: DNR per discussion with patient PCP: Trevor Dispo: Admit to med/surg. Discharge planning ordered. Labs Checked ROS-No Headache, No Visual Changes, No Nausea, No Vomiting, No Fever, No Chills, No Neck Pain or Stiffness, No Chest Pain, No Palpitations, No SOB, No AYALA, No Cough, No Sputum, No Wheezing, No Abdominal Pain, No Diarrhea, No Hematemesis, No Hemoptysis, No Unexpected Weight Loss, No Flank pain, No Melena, No Hematochezia, No Frequency, No Urgency, No Burning, No Hematuria, No Rashes, No Diaphoresis. Appetite is Normal Physical Exam Gen-AAO x 3, NAD, Afebrile Head-NCAT, EOMI, PERRLA, Anicteric Sclera, No Posterior Pharyngeal Erythema Neck-Supple, No JVD, No Thyromegaly, No Masses, No LAD, No Bruits Lungs-Clear to Auscultation Bilaterally, No Rales, No Rhonchi, No Wheezing, No Crepitus Chest-No S4, +S1, +S2, No S3, No Murmurs, No Rubs, No Gallops, No Ectopy Abdomen-Soft, Bowel Sounds Present, Non Tender, Non Distended, No Hepatomegaly, No Splenomegaly, No Palpable Masses, No Rebound, No Rigidity, No Guarding Musculoskeletal-Full Range of Motion Bilaterally, No CVAT Extremities-No Cyanosis, No Clubbing, No Edema Nuero-Cranial Nerves II-XII grossly intact, Motor WNL, DTRs WNL, Strength WNL, Non Focal Psych-Normal Mood Admission and Anticipated Discharge Date Admission Date: September 27, 2020 Results & Data Results & Data ([facility]) Vital Signs (Past 12 Hours) Vital Signs Temp Pulse Resp BP Pulse Ox 09/28/20 07:15 36.6 C 97 H 20 174/98 H 93 09/28/20 05:59 156/95 H 09/27/20 22:37 36.7 C 83 18 159/95 H 93
[2020-09-28] MEDS: allopurinoL 100 MG TAB PO SCH (08:48)
[2020-09-28] MEDS: ENALAPRIL MALEATE 5 MG TAB PO SCH (08:48)
[2020-09-28] MEDS: GABAPENTIN 100 MG CAP PO SCH ×2 (08:48→20:15)
[2020-09-28] MEDS: FLUTICASONE FUROATE 200MCG 14 PUFFS/INHALER INH SCH (08:48)
[2020-09-28] MEDS: guaiFENesin 600 MG TABCR PO SCH ×2 (08:48→20:15)
[2020-09-28] MEDS: SIMVASTATIN 10 MG TAB PO SCH (08:48)
[2020-09-28] MEDS: TAMSULOSIN HCL 0.4 MG CAP PO SCH (08:48)
[2020-09-28] MEDS ORDERED: METOPROLOL SUCC 25MG EXT REL TAB PO SCH (09:00)
[2020-09-28] MEDS ORDERED: FUROSEMIDE 40 MG in SYRINGE 0 ML IV ONE (10:15)
--- NOTE | 2020-09-28 10:28 | XRay Report ---
XR chest 1V portable HISTORY: 89 years-old Male s/p thoracentesis follow-up study in a patient with pleural effusion and recent thoracentesis COMPARISON: Chest radiograph and CTA chest 09/27/2020 TECHNIQUE: Portable AP view of the chest FINDINGS: Cardiac silhouette is enlarged. Prior median sternotomy. Calcified plaque of the thoracic aorta. Smal l pleural effusions. Right pleural effusion has decreased in size status post thoracentesis. No postp rocedural pneumothorax. Mild bibasilar opacities. Hazy left midlung opacity has decreased from compar viktoria. Degenerative changes of the shoulders and spine. IMPRESSION: Decreased size of the right pleural effusion status post thoracentesis. No postprocedural pneumothorax. ACT 112: Negative or not required by law. The above report was generated using voice recognition software. It may contain grammatical, syntax o r spelling errors. Electronically signed by: Black Turner M.D. 09/28/2020 10:27 AM
--- NOTE | 2020-09-28 10:30 | Procedure Note ---
Procedure Note Date of Service September 28, 2020 Procedure: Diagnostic therapeutic ultrasound-guided catheter thoracentesis Fiber Optics Engineer: Dr. Sean Wallace Indication: Pleural effusion Consent: Signed by patient and verified with timeout prior to procedure Anesthesia: 1% lidocaine without epinephrine local. Procedure: Consent was verified and timeout performed. Appropriate imaging studies were reviewed prior to the procedure. Patient was placed in a seated position and limited thoracic ultrasound was performed of the right chest. See separate imaging. Appropriate site above the diaphragm for thoracentesis was selected. The skin was prepped and draped in normal sterile fashion. Lidocaine was used for local analgesia. Fluid was aspirated via the finder needle. A small skin maria luisa was made with the scalpel and the catheter over the needle apparatus was advanced over the rib into the pleural space. Using the syringe one-way valve system, a total of 950 mL's of serosanguineous fluid was removed. The catheter was removed and observed to be intact. A sterile dressing was applied. Post procedure chest x-ray was ordered. Good lung sliding was appreciated postprocedure on the ultrasound Fluid was sent for labs, culture and cytology. Complications: None Blood loss: None Coding CPT Codes Pulmonary/Thoracic - Pulmonary and Thoracic: 72583 Thoracentesis w imaging ([id number]) [facility] [place] Procedure Codes (Charges) Pulmonary/Thoracic Procedure 1: Pulmonary and Thoracic: 14237 Thoracentesis w imaging
[2020-09-28 10:52] LABS: Albumin Level 2.9 gm/dl (3.4-5.0); Bilirubin,Total 0.6 mg/dl (0.2-1); Total Protein 6.6 gm/dl (6.4-8.2)
[2020-09-28 11:00] LABS: Glucose Pleural Fluid 113 mg/dl
[2020-09-28 11:07] LABS: Amylase Pleural Fluid 60 U/L; LDH Pleural Fluid 96 U/L; Total Protein Pleural Fluid 3.5 g/dl
[2020-09-28 11:16] LABS: Appearance Pleural Fluid HAZY; Basophils, Fluid 0 %; Color Pleural Fluid DARK YELLOW; Eosinophils, Fluid 5 %; Lymphocytes, Fluid 90 %; Mono,Macrophage,Mesothelial 5 %; Neutrophils, Fluid 0 %; RBC Pleural Fluid (A) 8000 /uL; Source Pleural Fluid RIGHT LUNG; WBC Pleural Fluid (A) 1381 /uL
--- NOTE | 2020-09-28 11:24 | Electrocardiogram Report ---
Test Reason : Blood Pressure : / mmHG Vent. Rate : 089 BPM Atrial Rate : 089 BPM P-R Int : 152 ms QRS Dur : 084 ms QT Int : 384 ms P-R-T Axes : 023 -36 037 degrees QTc Int : 467 ms Poor data quality, interpretation may be adversely affected Normal sinus rhythm with sinus arrhythmia Left axis deviation Septal infarct (cited on or before 01-MAY-2008) Abnormal ECG When compared with ECG of 10-JUN-2011 20:45, Questionable change in initial forces of Anterior leads Nonspecific T wave abnormality, worse in Inferior leads Confirmed by Celio Louise ([id number]) on 09/28/2020 11:23:28 AM Referred By: REFERRED SELF Confirmed By:Celio Louise
[2020-09-28] MEDS ORDERED: cefTRIAXone SODIUM 2,000 MG in DEXTROSE 5% 50 ML IV SCH (13:00)
[2020-09-28] MEDS: METOPROLOL SUCC 50MG EXT REL TAB PO SCH ×2 (13:06→20:15)
[2020-09-28] MEDS ORDERED: AZITHROMYCIN 500 MG in DEXTROSE 5% 250 ML IV SCH (14:00)
--- NOTE | 2020-09-28 16:49 | XCELERA ---
[id number]
[2020-09-29 07:08] LABS: Hematocrit (blood only) 48.3 % (42-52); Hemoglobin 15.6 g/dL (14.0-18.0); Mean Corpuscular Hemoglobin 32.6 pg (25-34); Mean Corpuscular Hgb Conc 32.3 g/dL (32-36); Mean Platelet Volume 12.1 fL (7.4-10.4); Platelet Count 108 K/uL (130-400); RDW Coefficient of Variation 14.6 % (11.5-14.5); RDW Standard Deviation 53.6 fL (36.4-46.3); Red Blood Count 4.78 M/uL (4.7-6.1); White Blood Count 6.13 K/uL (4.8-10.8)
[2020-09-29 07:13] LABS: BUN Creatinine Ratio 23.5 (10-20); Calcium 8.5 mg/dl (8.5-10.1); Creatinine Clr Calc Pharmacy 43.7 ml/min; Est GFR (African American) 56.6; Est GFR (Non-African American) 48.8; Potassium 4.2 mmol/L (3.5-5.1)
[2020-09-29 07:18] LABS: Albumin Globulin Ratio 0.9 (0.9-2); Globulin 3.5 gm/dl (2.5-4.0); Total Protein 6.5 gm/dl (6.4-8.2)
[2020-09-29] MEDS: GABAPENTIN 100 MG CAP PO SCH (08:21)
[2020-09-29] MEDS: METOPROLOL SUCC 50MG EXT REL TAB PO SCH (08:21)
[2020-09-29] MEDS: SIMVASTATIN 10 MG TAB PO SCH (08:21)
[2020-09-29] MEDS: guaiFENesin 600 MG TABCR PO SCH (08:21)
[2020-09-29] MEDS: TAMSULOSIN HCL 0.4 MG CAP PO SCH (08:23)
[2020-09-29] MEDS: ENALAPRIL MALEATE 5 MG TAB PO SCH (08:23)
[2020-09-29] MEDS: allopurinoL 100 MG TAB PO SCH (08:23)
[2020-09-29] MEDS: FLUTICASONE FUROATE 200MCG 14 PUFFS/INHALER INH SCH (08:24)
[2020-09-29] MEDS ORDERED: ASPIRIN 325 MG ECTAB PO SCH (09:00)
--- NOTE | 2020-09-29 09:06 | Discharge Summary ---
Date of Service September 29, 2020 Admission HPI Per Admitting Provider This is an 89yo M with a PMH of COPD, CAD s/p CABG, history of parotid gland cancer (s/p parotidectomy and radiation), dyslipidemia, CKD III, HTN, thrombocytopenia, h/o carotid stenosis s/p carotid endarterectomy and other medical problems listed below who presents with cough and shortness of breath for the past few days. Endorses productive cough and pleuritic chest pain. Dyspnea on exertion. Denies any fever, chills or body aches. No lightheadedness or headache. No palpitations, wheezing, nausea, vomiting, abdominal pain, dysuria, diarrhea or constipation. Has history of COPD but does not require oxygen at baseline. Admission Exam Per Admitting Provider General Appearance: WD/WN, vitals as above, NAD, sitting up in bed, pleasant, conversing easily Head: normocephalic, atraumatic Eyes: normal inspection, PERRL, conjunctivae normal, anicteric sclerae ENT: external ear and nose normal, oropharynx normal Neck: normal visual inspection, trachea midline, no thyromegaly Respiratory: normal respiratory effort, scattered crackles noted in L lung, diminished at bases, no wheezing. No accessory muscle use Cardiovascular: regular rate, rhythm, no murmur appreciated, normal peripheral pulses, no BLE edema. Vessels: no JVD Chest: normal inspection of chest Abdomen/GI: normal bowel sounds, soft, nontender, no hepatosplenomegaly Extremities/Musculoskeletal: no cyanosis or clubbing, extremities motor strength 5/5 Neurologic: PERRL, EOMI, accommodation nl, no face palsy, no dysarthria, CN's II-XI intact bilaterally and moves all extremities Psychiatric: A+Ox3, euthymic affect Skin: no rashes, normal color, warm/dry Principal Diagnosis (1) Pneumonia: (2) Pleural effusion: (3) Nodule of soft tissue: (4) COPD (chronic obstructive pulmonary disease): (5) CAD (coronary artery disease): (6) HTN (hypertension): (7) CKD (chronic kidney disease), stage III: Discharge Exam See below Discharge Data Allergies Allergy/AdvReac Type Severity Reaction Status Date / Time No Known Allergies Allergy Unknown Verified 01/28/15 10:08 Consultations 09/27/20 16:40 ED Decision to Admit Stat 09/27/20 19:22 Consult Case Management - Discharge Planning Routine Consult Pulmonology Routine Ordered Studies 09/27/20 13:51 CT angio chest PE protocol Stat 09/28/20 08:23 US point of care ultrasound Urgent Current Diagnoses Essential (primary) hypertension (09/27/20) Atherosclerotic heart disease of [place] coronary artery without angina pectoris (09/27/20) Pneumonia, unspecified organism (09/27/20) Chronic obstructive pulmonary disease, unspecified (09/27/20) Pleural effusion, not elsewhere classified (09/27/20) Other specified soft tissue disorders (09/27/20) Chronic kidney disease, stage 3 unspecified (09/27/20) Abnormal findings on diagnostic imaging of other specified body structures (09/27/20) Allergies No Known Allergies Allergy (Unknown, Verified 01/28/15 10:08) Height/Weight/Isolation Height 5 ft 9 in Weight 93.1 kg Chemistry 09/27/20 09/28/20 09/29/20 12:25 06:12 06:12 Sodium 139 142 140 Potassium 4.5 4.6 4.2 Chloride 104 105 103 Carbon Dioxide 32 30 31 Anion Gap 3.0 6.0 6.0 BUN 19 H 17 30 H D Creatinine 1.20 1.07 1.29 Glucose 94 112 H 78 Urinalysis 09/27/20 13:25 Urine Color Yellow Urine Appearance Clear Urine pH 6.0 Ur Specific [place] 1.006 Urine Protein Negative Urine Glucose (UA) Negative Urine Ketones Negative Urine Blood Negative Urine Nitrite Negative Urine Bilirubin Negative Microbiology 09/28/20 Unknown Pleural Fluid Acid Fast Bacilli Smear - Final 09/28/20 Unknown Pleural Fluid Acid Fast Bacilli Culture - Pending 09/27/20 14:34 Blood Aerobic Blood Culture - Preliminary No growth in Aerobic bottle after 24 hours. 09/27/20 14:34 Blood Anaerobic Blood Culture - Final 09/27/20 14:41 Blood Aerobic Blood Culture - Preliminary No growth in Aerobic bottle after 24 hours. 09/27/20 14:41 Blood Anaerobic Blood Culture - Preliminary No growth in Anaerobic bottle after 24 hours. 09/28/20 Unknown Pleural Fluid Gram Stain - Final 09/28/20 Unknown Pleural Fluid Aerobic and Anaerobic Culture - Pending 09/28/20 06:40 Sputum, Expectorated Gram Stain - Final 09/28/20 06:40 Sputum, Expectorated Sputum Culture - Pending Hospital Course (1) Pneumonia: (2) Pleural effusion: (3) Nodule of soft tissue: (4) COPD (chronic obstructive pulmonary disease): (5) CAD (coronary artery disease): (6) HTN (hypertension): (7) CKD (chronic kidney disease), stage III: This is an 89yo M with a PMH of COPD, CAD s/p CABG, history of parotid gland cancer (s/p parotidectomy and radiation), dyslipidemia, CKD III, HTN, thrombocytopenia, h/o carotid stenosis s/p carotid endarterectomy and other medical problems listed below who presents with cough and shortness of breath for the past few days and was found to have pneumonia, bilateral pleural effusions and soft tissue nodule. He feels a lot better today Acute hypoxic respiratory failure Community acquired pneumonia Loculated pleural effusion -Hypoxic at 86% on room air now saturating at 97% on 2L NC -CTA chest with moderate right and small left pleural effusions. The left upper lobe density seen on the same day chest x-ray corresponds to a small amount of loculated pleural fluid. Also with consolidation seen within the base of the right lower lobe and lingula favoring atelectasis vs pneumonia -Given albuterol breathing treatment, Solu-Medrol, Rocephin and azithromycin in ED. Blood and sputum cultures pending -Plan to continue empiric abx and Duonebs QID PRN. Mucinex, Tessalon Perles PRN. Follow cultures. Covid screen negative. Continue supplemental O2 -Pulmonology on case. s/p Thoracentesis-Exudative, Sputum- +Staph, +Gram neg bacilli Soft tissue nodule on CTA chest -CTA chest with a "3.1 x 2.1 cm oval-shaped soft tissue nodule which appears to be located within the posterior mediastinum adjacent to the esophagus. This could also be located within the adjacent medial aspect of the right lower lobe. This could represent an enlarged lymph node, posterior mediastinal lesion, or possibly a right lower lobe lesion" CAD H/o CABG. No chest pain or acute EKG changes. Continue beta bre, statin HTN Continue Enalapril, Toprol CKD III Kidney function at baseline. Continue monitoring with daily BMP DVT Ppx: SQ heparin 5000 u Code status: DNR per discussion with patient PCP: Trevor Dispo: Discharge today on Doxy and Cefdinir, Path result in Pulm or PCP office Labs Checked ROS-No Headache, No Visual Changes, No Nausea, No Vomiting, No Fever, No Chills, No Neck Pain or Stiffness, No Chest Pain, No Palpitations, No SOB, No AYALA, No Cough, No Sputum, No Wheezing, No Abdominal Pain, No Diarrhea, No Hematemesis, No Hemoptysis, No Unexpected Weight Loss, No Flank pain, No Melena, No Hematochezia, No Frequency, No Urgency, No Burning, No Hematuria, No Rashes, No Diaphoresis. Appetite is Normal, feels great Physical Exam Gen-AAO x 3, NAD, Afebrile Head-NCAT, EOMI, PERRLA, Anicteric Sclera, No Posterior Pharyngeal Erythema Neck-Supple, No JVD, No Thyromegaly, No Masses, No LAD, No Bruits Lungs-Clear to Auscultation Bilaterally, No Rales, No Rhonchi, No Wheezing, No Crepitus Chest-No S4, +S1, +S2, No S3, No Murmurs, No Rubs, No Gallops, No Ectopy Abdomen-Soft, Bowel Sounds Present, Non Tender, Non Distended, No Hepatomegaly, No Splenomegaly, No Palpable Masses, No Rebound, No Rigidity, No Guarding Musculoskeletal-Full Range of Motion Bilaterally, No CVAT Extremities-No Cyanosis, No Clubbing, No Edema Nuero-Cranial Nerves II-XII grossly intact, Motor WNL, DTRs WNL, Strength WNL, Non Focal Psych-Normal Mood Total Time Total Time Spent Total Time Spent (In Minutes): 45 min Total Time Includes: Examination of the Patient, Discharge Planning, Medication Reconciliation and Communication With Other Providers Discharge Plan Discharge Items Patient Disposition: Home - Self-Care Reason For Visit: PNA, PLEURAL EFFUSIONS, NODULE ON CTA CHEST Discharge Diagnosis: (1) Pneumonia: (2) Pleural effusion: (3) Nodule of soft tissue: (4) COPD (chronic obstructive pulmonary disease): (5) CAD (coronary artery disease): (6) HTN (hypertension): (7) CKD (chronic kidney disease), stage III: Condition on Discharge: Good Health Concerns: Concern for malignancy, Pneumonia with normal white count Activity: Resume your previous activity Lifting: Gradually increase as tolerated Bathing: No limitations Sexual Activity: When tolerated Exercise/Sports: Gradually increase as tolerated Driving/Machine Use: No limitations Weightbearing: Full weightbearing Non-emergency contact: Primary Care Provider Call non-emergency contact if: you have any medication questions Follow-up/Referrals: Sean Wallace MD [Physician] - (Call for first opening) Pritesh Murray DO [Primary Care Provider] - Diet: Heart Healthy Addtl Attending Provider Instructions: Follow up with pulmonary Dr Wallace Pending Studies at Discharge: Yes Studies:: Final Cultures Stand-Alone Forms: My [facility], Smoking Cessation Medications and DC Order Prescriptions: New benzonatate [Tessalon Perles] 100 mg Capsule 100 mg PO TID PRN (Reason: cough) Qty: 30 RF: 0 guaifenesin [Mucinex] 600 mg Tablet Extended Release 12hr 600 mg PO Q12 Qty: 30 RF: 0 cefdinir 300 mg capsule 300 mg PO BID 7 Days Qty: 14 RF: 0 doxycycline monohydrate 100 mg capsule 100 mg PO BID 7 Days Qty: 14 RF: 0 Continued simvastatin 10 mg tablet 10 mg PO DAILY RF: 0 allopurinol 100 mg tablet 100 mg PO DAILY RF: 0 tamsulosin 0.4 mg capsule 0.4 mg PO DAILY RF: 0 gabapentin 100 mg capsule 100 mg PO BID RF: 0 metoprolol succinate 25 mg tablet extended release 24 hr 25 mg PO DAILY RF: 0 Flovent HFA 110 mcg/actuation HFA aerosol inhaler 2 puff INHALATION DIRECTED RF: 0 aspirin 325 mg Tablet 325 mg PO DAILY RF: 0 ciprofloxacin-dexamethasone [Ciprodex] 0.3-0.1 % drops,suspension 1 drp UD RF: 0 PreserVision AREDS [id number] Capsule 1 cap PO BID RF: 0 enalapril maleate 5 mg Tablet 5 mg PO DAILY RF: 0 Discharge Orders: Discharge Order (Routine); Ordered 09/29/20 Ordered By: Domingo Whelan Admission Data Admit Date/Time: 09/27/20 17:35 Attending Provider: Domingo Whelan Admit Provider: Domingo Whelan Primary Care Provider: Pritesh Murray Other Providers: Domingo Whelan ; Sean Wallace
--- NOTE | 2020-09-29 10:58 | Pulmonology Progress Note ---
Date of Service September 29, 2020 Assessment & Plan (1) Pleural effusion: Status post thoracocentesis with Dr. Wallace. Pathology and labs are still pending. Follow-up appointments been scheduled for 10/22/2020 at 1:[address] Wallace in the outpatient office to review results of the thoracentesis. Patient states that he feels much better since having fluid removed. Oxygenating well on room air. (2) Pneumonia: Procalcitonin was negative on 09/28/2020 Patient does appear to have some atelectasis on imaging No prior CT chest to compare to this admission COVID-19 is negative Patient receiving empiric antibiotics No fever or leukocytosis. No reports of hemoptysis or significant sputum production with cough. Laterality: right Lung location: lower lobe of lung Pneumonia type: due to unspecified organism Qualified Code(s): J18.9 - Pneumonia, unspecified organism (3) Abnormal chest CT: No prior CT scan to compare Moderate to large right pleural effusion -status post thoracentesis There is a soft tissue opacity appreciated in the posterior mediastinum adjacent to the esophagus We will follow up outpatient after cytology from pleural fluid is evaluated (4) COPD (chronic obstructive pulmonary disease): No prior pulmonary function testing per patient Started on Incruse (AC) Outpatient follow-up with Dr. Wallace 10/22/2020 Thank you for including us in the care of this patient. We will sign off at this time. Please feel free to reconsult as needed. We will follow patient in the outpatient setting. Admission and Anticipated Discharge Date Admission Date: September 27, 2020 Subjective Attending: Dr. Morton Patient seen and examined at bedside. He is in bedside chair. Since his thora centesis the patient says that he feels great. He has no shortness of breath. He denies any cough. He has no pain at the incisional site for the thoracentesis. He denies any fever, chills, sweats, rigors. He is looking forward to discharge. A follow-up appointment has been scheduled for him to see Dr. Wallace in the outpatient pulmonary clinic 10/22/2020 at 1:30 PM. Review of Systems Review of Systems: All systems reviewed & are unremarkable except as noted in Subjective Physical Exam Physical Exam: GENERAL : No acute distress EYES: No icterus, gaze conjugate NOSE: No evidence of epistaxis MOUTH: No lesions or candidiasis NECK: Supple LUNGS: Some crackles at the bilateral bases. Breath sounds present bilaterally at the bases. No bronchospasm appreciated. HEART: Regular, rate controlled ABDOMEN: Soft, NT, ND, BS Present EXTREMITIES: No LE edema, pedal pulses intact and equal bilaterally. NEURO: A&OX3 Results & Data Results & Data ([place]) Vital Signs (Past 12 Hours) Vital Signs Temp Pulse Pulse Resp BP BP Pulse Ox 09/29/20 09:31 36.9 C 94 H 79 16 167/86 H 144/69 H 92 09/29/20 07:45 36.9 C 79 16 167/86 H 92 Laboratory Results 09/29/20 06:12 09/29/20 06:12 Diagnostic Findings XR chest 1V portable 09/28/2020 HISTORY: 89 years-old Male s/p thoracentesis follow-up study in a patient with pleural effusion and recent thoracentesis COMPARISON: Chest radiograph and CTA chest 09/27/2020 TECHNIQUE: Portable AP view of the chest FINDINGS: Cardiac silhouette is enlarged. Prior median sternotomy. Calcified plaque of the thoracic aorta. Small pleural effusions. Right pleural effusion has decreased in size status post thoracentesis. No postprocedural pneumothorax. Mild bibasilar opacities. Hazy left midlung opacity has decreased from comparison. Degenerative changes of the shoulders and spine. IMPRESSION: Decreased size of the right pleural effusion status post thoracentesis. No postprocedural pneumothorax. ACT 112: Negative or not required by law. The above report was generated using voice recognition software. It may contain grammatical, syntax or spelling errors. Electronically signed by: Black Turner M.D. 09/28/2020 10:27 AM PG Care Time/CCT Total # of Minutes Spent Total Time Spent with Patient: Total time spent is greater than 50% in coordination of care (as documented) at patient's floor/unit and/or counseling patient: 30 minutes Coding Level of Care Code 42070 Subseq Hosp Care Lvl 2 Diagnoses Pleural effusion J90 Pneumonia J18.9 Laterality: right Lung location: lower lobe of lung Pneumonia type: due to unspecified organism Abnormal chest CT R93.89 COPD (chronic obstructive pulmonary disease) J44.9 Time Spent (min) 30
--- NOTE | 2020-10-10 11:53 | Coding Query ---
CODING QUERY To promote full compliance with coding requirements relating to patient care, provider participation is requested in all cases of fur blower uncertainty. Please assist us with the question(s) below: Coding Question(s): 1. Pneumonia and Community Acquired Pneumonia is documented in the record and on Discharge Summary with documentation on Discharge Summary of, "Pulmonology on case. s/p Thoracentesis-Exudative, Sputum- +Staph, +Gram neg bacilli". Please specify below, in your clinical opinion, regarding Pneumonia. ( X ) likely Pneumonia due to Staph and Gram Negative Bacilli ( ) likely Pneumonia, Unspecified ( ) likely Other Pneumonia, Please Specify 2. Pleural Effusion is documented in the record and on Discharge Summary with documentation on the Pulmonary Consultation of, "Right-sided pleural effusion could be parapneumonic versus secondary to heart failure", and documentation on Discharge Summary of , "CTA chest with moderate right and small left pleural effusions. The left upper lobe density seen on the same day chest x-ray corresponds to a small amount of loculated pleural fluid". Please Specify below, in your clinical opinion, regarding the Pulmonary Effusion. ( ) Pulmonary Effusion, Unspecified etiology ( X ) Pulmonary Effusion, likely due to Pneumonia ( ) Pulmonary Effusion, likely due Other: Please Specify ( ) Pulmonary Effusion, likely due to Heart Failure. Please Specify below regarding Heart Failure: ( ) Acute CHF ( ) Diastolic ( ) Systolic ( ) Combined Diastolic and Systolic ( ) Acute on Chronic CHF ( ) Diastolic ( ) Systolic ( ) Combined Diastolic and Systolic ( ) Chronic CHF ( ) Diastolic ( ) Systolic ( ) Combined Diastolic and Systolic ( ) Other Heart Failure: Please Specify ( ) Unspecified Heart Failure Physician's Response(s): Thank you Homa Morrison Principal Diagnosis: "that condition established after study, to be chiefly responsible for occasioning the admission of the patient to the hospital for care." Co-Existing Principal Diagnosis: "when two or more diagnoses equally meet the criteria for principal diagnosis as determined by the circumstances of admission, diagnostic work up, and/or therapy provided, and the Alphabetic Index, Tabular List, or another coding guideline does not provide sequencing direction, any one of the diagnoses may be sequenced first." "When the physician has documented what appears to be a current diagnosis in the body of the record, but has not included the diagnosis in the final diagnostic statement, the physician should be asked whether the diagnosis should be added." (Source [facility]oding [facility] 2 QTR90. p3-4) SANT[facility]
== END 2020-09-29 12:51 | disposition home or self-care (01) | DRG 177 ==
LOC: ED 12:02 → 2N 17:35

== ENCOUNTER 2020-11-05 09:08 | Inpatient (IN) ==
[2020-11-05] MEDS ORDERED: NITROGLYCERIN 2% OINTMENT 30GM TUBE ONE (09:24)
[2020-11-05] MEDS ORDERED: NITROGLYCERIN 2% OINTMENT 30GM TUBE EXT STA (09:27)
[2020-11-05] MEDS ORDERED: ALBUT/IPRATROP 3MG/0.5MG NEB 3 ML VIAL INH STA (09:27)
--- NOTE | 2020-11-05 09:35 | Emergency Department Note ---
Impression & Plan Hypoxia, Hypertension, SOB (shortness of breath), Pleural effusion, Wheezing ED Provider Note NAME: WEN RIVER AGE: 89 SEX: M : 1930 ARRIVES VIA: Ambulance INFORMANT: [Patient][ems] ED PROVIDER(S): [Truman Machado MD] CHIEF COMPLAINT: Short of breath HISTORY OF PRESENT ILLNESS: The patient is an 89-year-old male who presents to the ED with complaints of shortness of breath. He has felt short of breath for 2 days. He has not had any increased cough. There has been no fever. Patient was tested for Covid about a month ago and was negative. He has had no known Covid exposures. Patient states that he feels short of breath with exertion and he states that last night, he could not breathe lying flat. O2 saturation was low as per EMS. As per nursing staff. When the patient was being readied in the room, his O2 saturation dropped to 79% on room air. He was placed on nasal cannula O2. There has been no vomiting, no abdominal pain. The patient states that he feels some tightness in his chest that would be rated as a 4/10. The tightness is present when the shortness of breath is present. The patient does have a history of heart disease, he has a history of a pleural effusion that required drainage. He has baseline emphysema and does use inhalers at home. REVIEW OF SYSTEMS: See HPI for pertinent positives and negatives. A total of ten systems were reviewed and were otherwise negative. PMHx/PSHx: See Below SOCIAL HISTORY: See Below. PHYSICAL EXAM: GENERAL: Patient is in no acute distress. HEENT: No acute trauma, normocephalic atraumatic, mucous membranes moist, no nasal congestion, no scleral icterus. NECK: No stridor, no adenopathy, no meningismus, trachea is midline. LUNGS: Scattered wheezes bilaterally, diminished breath sounds at the bases. There is no obvious respiratory distress. HEART: Mildly tachycardic, regular rhythm, no murmurs. ABDOMEN: Soft, nontender, bowel sounds positive, no hernias, no peritonitis. EXTREMITIES: No cyanosis or edema, full range of motion of all the joints without pain or difficulty, no signs for acute trauma. NEUROLOGIC: Oriented x 3, no acute motor or sensory deficits, no focal weakness. SKIN: No rash, no jaundice, no diaphoresis. DIFFERENTIAL DIAGNOSIS: Reactive airway disease, pneumonia, pneumothorax, COPD, COVID-19, CHF, infection, cardiac ischemia, pulmonary embolism, bronchitis, musculoskeletal, gastrointestinal, as well as other pathologies. EMERGENCY DEPARTMENT COURSE/PROCEDURES: ECG: Indication was shortness of breath. The ECG shows a sinus tachycardia with a rate of 105. There is an old anterior infarct. The QTc is 462. No ST elevation, no PVCs. Compared to an ECG from 27 September 2020, the rate has increased. Continuous Cardiac Monitoring: An order was placed for continuous cardiac monitoring. The monitor shows a rate of 96 with normal sinus rhythm. Critical Care Note: I have personally spent 48 minutes of critical care time in the direct management of this patient. This includes bedside care, interpretation of diagnostic studies, and testing, discussion with consultants, patient, and family members, and other required patient management activities. This 48 minutes is in excess of all separately billable procedures. MEDICAL DECISION MAKING: There is no leukocytosis or concerning anemia. Platelet count slightly low but, this has been documented before. No significant electrolyte abnormality or kidney failure. Alk phos slightly elevated, the remaining liver enzymes were unremarkable. ECG showed a sinus tachycardia, no acute ischemic change. Cardiac enzyme testing x1 is not consistent with acute cardiac injury. Chest film showed some effusions and potential atelectasis/pneumonia bilaterally. Chest CT does not show PE, pleural effusions were seen more so on the right. As per radiology, atelectasis was noted--pneumonia could not be ruled out but atelectasis seemed more likely. Covid and influenza testing returned negative. Lactic acid level is not elevated making sepsis less likely. Patient received a DuoNeb. He was given IV Solu-Medrol and IV labetalol. A s econd dose of IV labetalol was required. He was given 2 inches of nitroglycerin paste. Patient was given IV ceftriaxone as coverage for potential pneumonia. The patient presents quite hypertensive. He was hypoxic at 79%. He required O2 supplementation. His blood pressure has been addressed with medications. His breathing has improved with our treatment. The patient is in need of a hospital stay. I suspect his dyspnea is multifactorial. He is not capable being discharged home. I did speak to the patient and case management. The on-call hospitalist was consulted. Past Med/Surg History Medical History CAD (coronary artery disease) Carotid stenosis CKD (chronic kidney disease), stage III COPD (chronic obstructive pulmonary disease) History of DVT (deep vein thrombosis) History of malignant neoplasm of parotid gland HTN (hypertension) Surgical History History of coronary artery bypass graft History of right-sided carotid endarterectomy Hx of parotidectomy Family History Other Heart disease Social History Smoking Status: Former smoker Tobacco Type: Cigarettes, Pipe and Cigars Hx Alcohol Use: No Hx Substance Use: No Preferred Language: Syrian Communication Ability: Effective 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 marital status: Current Living Situation: Spouse Current Living Situation Comment: Home with Feels Safe at Home: Yes Assistive Devices: Hearing Aid - Bilateral Allergies Allergies Allergy/AdvReac Type Severity Reaction Status Date / Time No Known Allergies Allergy Unknown Verified 11/05/20 10:28 Home Meds Home Medications Medication Instructions Recorded Confirmed PreserVision AREDS 1 cap PO BID 09/27/20 11/05/20 allopurinol 100 mg PO QAM 09/27/20 11/05/20 aspirin 325 mg PO QAM 09/27/20 11/05/20 enalapril maleate 5 mg PO QAM 09/27/20 11/05/20 metoprolol succinate 25 mg PO DAILY 09/27/20 11/05/20 simvastatin 10 mg PO DAILY 09/27/20 11/05/20 tamsulosin 0.4 mg PO DAILY 09/27/20 11/05/20 finasteride 5 mg PO DAILY 11/05/20 11/05/20 gabapentin 100 mg PO BID 11/05/20 11/05/20 [id number]-[id number]-[id number] 1 tab PO QAM 11/05/20 11/05/20 [Centrum Silver] omega-3 fatty acids-fish oil [Fish 1 cap PO QAM 11/05/20 11/05/20 Oil] umeclidinium [Incruse Ellipta] 1 inh INHALATION QPM 03/17/21 03/17/21 Results & Data (ED) Vital Signs Vital Signs - 24 hr 11/05/20 09:37 11/05/20 09:59 11/05/20 10:25 Temperature 37.2 C Temperature Source Oral Pulse Rate 114 H Pulse Rate [Right Finger] 92 H 91 H Respiratory Rate 24 22 24 Respiratory Effort / Characteristics Spontaneous Blood Pressure 223/140 H Blood Pressure [Right Arm] 186/119 H Blood Pressure Mean 167 Blood Pressure Mean [Right Arm] 141 Pulse Oximetry 97 98 96 Oxygen Delivery Method Nasal Cannula Nasal Cannula Nasal Cannula Oxygen Flow Rate 5 5 3 Sepsis Recent Fever Within 48 Hours No Sepsis New/Unexplained Change in Mental Status N/A Sepsis Action Taken by Nursing Physician Notified 11/05/20 11:09 11/05/20 11:29 11/05/20 12:03 Temperature Temperature Source Pulse Rate Pulse Rate [Right Finger] 96 H 99 H 87 Respiratory Rate 20 24 24 Respiratory Effort / Characteristics Blood Pressure Blood Pressure [Right Arm] 174/105 H 189/117 H 152/89 H Blood Pressure Mean Blood Pressure Mean [Right Arm] 128 141 110 Pulse Oximetry 97 93 94 Oxygen Delivery Method Nasal Cannula Nasal Cannula Nasal Cannula Oxygen Flow Rate 3 3 3 Sepsis Recent Fever Within 48 Hours Sepsis New/Unexplained Change in Mental Status Sepsis Action Taken by Detention Medications Current Medication List: was personally reviewed by me Laboratory Data Attestation: I reviewed the patient's lab results. Result diagrams: 11/05/20 09:30 11/05/20 09:30 Lab Results 11/05/20 11/05/20 11/05/20 Range/Units 09:30 09:30 09:30 WBC 4.98 (4.8-10.8) K/uL RBC 4.93 (4.7-6.1) M/uL Hgb 16.4 (14.0-18.0) g/dL Hct 49.5 (42-52) % MCV 100.4 H (80-100) fL MCH 33.3 (25-34) pg MCHC 33.1 (32-36) g/dL RDW Std Deviation 53.3 H (36.4-46.3) fL RDW Coeff of Hakeem 14.5 (11.5-14.5) % Plt Count 106 L (130-400) K/uL MPV 12.1 H (7.4-10.4) fL Immature Gran % (Auto) 0.0 % Neut % (Auto) 71.1 % Lymph % (Auto) 15.3 % Bay % (Auto) 11.2 % Eos % (Auto) 1.6 % Baso % (Auto) 0.8 % Neut # (Auto) 3.54 (1.4-6.5) K/uL Lymph # (Auto) 0.76 L (1.2-3.4) K/uL Bay # (Auto) 0.56 (0.11-0.59) K/uL Eos # (Auto) 0.08 (0-0.5) K/uL Baso # (Auto) 0.04 (0-0.2) K/uL Immature Gran # (Auto) 0.00 (0.00-0.02) K/uL Platelet Estimate Decreased L (Normal) RBC Morphology Unremarkable PT Cancelled INR Cancelled APTT Cancelled PTT Ratio Cancelled Sodium 141 (136-145) mmol/L Potassium 3.8 (3.5-5.1) mmol/L Chloride 105 (98-107) mmol/L Carbon Dioxide 31 (21-32) mmol/L Anion Gap 5.0 (3-11) BUN 17 (7-18) mg/dl Creatinine 1.09 (0.6-1.4) mg/dl Est Cr Clr Drug Dosing 51.1 ml/min Est GFR ( Amer) 69.4 Est GFR (Non-Af Amer) 59.9 BUN/Creatinine Ratio 15.5 (10-20) Glucose 95 (70-99) mg/dl Lactate (0.4-2.0) mmol/L Calcium 9.5 (8.5-10.1) mg/dl Magnesium 2.0 (1.8-2.4) mg/dl Total Bilirubin 0.8 (0.2-1) mg/dl AST 29 (15-37) U/L ALT 29 (12-78) U/L Alkaline Phosphatase 132 H (45-117) U/L Troponin I 0.042 (0-0.045) ng/ml Total Protein 7.4 (6.4-8.2) gm/dl Albumin 3.2 L (3.4-5.0) gm/dl Globulin 4.2 H (2.5-4.0) gm/dl Albumin/Globulin Ratio 0.8 L (0.9-2) COVID-19 Eval Order SARS-CoV-2 (PCR) (Negative) Influenza Type A (PCR) (Neg) Influenza Type B (PCR) (Neg) RSV (RT-PCR) (Neg) 11/05/20 11/05/20 11/05/20 Range/Units 10:20 10:20 10:24 WBC (4.8-10.8) K/uL RBC (4.7-6.1) M/uL Hgb (14.0-18.0) g/dL Hct (42-52) % MCV (80-100) fL MCH (25-34) pg MCHC (32-36) g/dL RDW Std Deviation (36.4-46.3) fL RDW Coeff of Hakeem (11.5-14.5) % Plt Count (130-400) K/uL MPV (7.4-10.4) fL Immature Gran % (Auto) % Neut % (Auto) % Lymph % (Auto) % Bay % (Auto) % Eos % (Auto) % Baso % (Auto) % Neut # (Auto) (1.4-6.5) K/uL Lymph # (Auto) (1.2-3.4) K/uL Bay # (Auto) (0.11-0.59) K/uL Eos # (Auto) (0-0.5) K/uL Baso # (Auto) (0-0.2) K/uL Immature Gran # (Auto) (0.00-0.02) K/uL Platelet Estimate (Normal) RBC Morphology PT Cancelled INR Cancelled APTT Cancelled PTT Ratio Cancelled Sodium (136-145) mmol/L Potassium (3.5-5.1) mmol/L Chloride (98-107) mmol/L Carbon Dioxide (21-32) mmol/L Anion Gap (3-11) BUN (7-18) mg/dl Creatinine (0.6-1.4) mg/dl Est Cr Clr Drug Dosing ml/min Est GFR ( Amer) Est GFR (Non-Af Amer) BUN/Creatinine Ratio (10-20) Glucose (70-99) mg/dl Lactate (0.4-2.0) mmol/L Calcium (8.5-10.1) mg/dl Magnesium (1.8-2.4) mg/dl Total Bilirubin (0.2-1) mg/dl AST (15-37) U/L ALT (12-78) U/L Alkaline Phosphatase (45-117) U/L Troponin I (0-0.045) ng/ml Total Protein (6.4-8.2) gm/dl Albumin (3.4-5.0) gm/dl Globulin (2.5-4.0) gm/dl Albumin/Globulin Ratio (0.9-2) COVID-19 Eval Order CovFluRsv at [facility] SARS-CoV-2 (PCR) NEGATIVE (Negative) Influenza Type A (PCR) Negative (Neg) Influenza Type B (PCR) Negative (Neg) RSV (RT-PCR) Negative (Neg) 11/05/20 11/05/20 Range/Units 11:17 11:18 WBC (4.8-10.8) K/uL RBC (4.7-6.1) M/uL Hgb (14.0-18.0) g/dL Hct (42-52) % MCV (80-100) fL MCH (25-34) pg MCHC (32-36) g/dL RDW Std Deviation (36.4-46.3) fL RDW Coeff of Hakeem (11.5-14.5) % Plt Count (130-400) K/uL MPV (7.4-10.4) fL Immature Gran % (Auto) % Neut % (Auto) % Lymph % (Auto) % Bay % (Auto) % Eos % (Auto) % Baso % (Auto) % Neut # (Auto) (1.4-6.5) K/uL Lymph # (Auto) (1.2-3.4) K/uL Bay # (Auto) (0.11-0.59) K/uL Eos # (Auto) (0-0.5) K/uL Baso # (Auto) (0-0.2) K/uL Immature Gran # (Auto) (0.00-0.02) K/uL Platelet Estimate (Normal) RBC Morphology PT 11.5 INR 1.1 APTT 24.2 PTT Ratio 0.9 Sodium (136-145) mmol/L Potassium (3.5-5.1) mmol/L Chloride (98-107) mmol/L Carbon Dioxide (21-32) mmol/L Anion Gap (3-11) BUN (7-18) mg/dl Creatinine (0.6-1.4) mg/dl Est Cr Clr Drug Dosing ml/min Est GFR ( Amer) Est GFR (Non-Af Amer) BUN/Creatinine Ratio (10-20) Glucose (70-99) mg/dl Lactate 1.7 (0.4-2.0) mmol/L Calcium (8.5-10.1) mg/dl Magnesium (1.8-2.4) mg/dl Total Bilirubin (0.2-1) mg/dl AST (15-37) U/L ALT (12-78) U/L Alkaline Phosphatase (45-117) U/L Troponin I (0-0.045) ng/ml Total Protein (6.4-8.2) gm/dl Albumin (3.4-5.0) gm/dl Globulin (2.5-4.0) gm/dl Albumin/Globulin Ratio (0.9-2) COVID-19 Eval Order SARS-CoV-2 (PCR) (Negative) Influenza Type A (PCR) (Neg) Influenza Type B (PCR) (Neg) RSV (RT-PCR) (Neg) Administered Medications Discontinued Medications Albuterol (Albut/Ipratrop 3mg/0.5mg Neb 3 Ml Vial) 3 ml INH NOW STA Stop: 11/05/20 09:28 Last Admin: 11/05/20 09:58 Dose: 3 ml Documented by: [id number] Ceftriaxone Sodium (Rocephin) 2,000 mg in 70 mls @ 140 mls/hr IV NOW STA Stop: 11/05/20 12:08 Last Admin: 11/05/20 11:58 Dose: 140 mls/hr Documented by: [id number] Ioversol (Optiray 320 125ml) 120 ml IV ONCE ONE Stop: 11/05/20 10:59 Last Admin: 11/05/20 10:58 Dose: 120 ml Documented by: [id number] Labetalol HCl (Labetalol Hcl Iv 5 Mg/Ml 20ml) 10 mg IV NOW STA Stop: 11/05/20 09:53 Last Admin: 11/05/20 10:16 Dose: 10 mg Documented by: [id number] Cosigned by: [id number] Labetalol HCl (Labetalol Hcl Iv 5 Mg/Ml 20ml) 10 mg IV NOW STA Stop: 11/05/20 11:36 Last Admin: 11/05/20 11:58 Dose: 10 mg Documented by: [id number] Cosigned by: [id number] Methylprednisolone (Methylprednisolone 125 Mg/2 Ml Vial) 60 mg IV NOW STA Stop: 11/05/20 11:23 Last Admin: 11/05/20 11:27 Dose: 60 mg Documented by: [id number] Nitroglycerin (Nitroglycerin 2% Ointment 30gm Tube) Confirm Administered Dose 36 inch .ROUTE .STK-MED ONE Stop: 11/05/20 09:25 Last Admin: 11/05/20 09:26 Dose: 2 inch Documented by: [id number] Nitroglycerin (Nitroglycerin 2% Ointment 30gm Tube) 2 inch EXT NOW STA Stop: 11/05/20 09:28 Last Admin: 11/05/20 09:46 Dose: Not Given Documented by: [id number] Imaging Data Radiologist's Impression: XR chest 1V portable CLINICAL HISTORY: SOB COMPARISON STUDY: 10/22/2020 FINDINGS: There are postsurgical changes of a midline sternotomy. The heart is enlarged. There are small bilateral pleural effusions. There are progressive right lower lung zone airspace opacities and volume loss. Since the prior study, the patient has developed left perihilar airspace opacities.[ IMPRESSION: 1. Slight interval increase in the size of the bilateral pleural effusions right larger than left 2. Progressive right basilar airspace opacities with associated volume loss. 3. Interval development of left perihilar airspace opacities possibly representing a pneumonia. CT ANGIOGRAM OF THE CHEST CLINICAL HISTORY: Increasing shortness of breath. COMPARISON STUDY: 09/27/2020 TECHNIQUE: Following the IV administration of 120 mL of Optiray-320, CT angiogram of the thorax was performed from the thoracic inlet to the lung bases utilizing the pulmonary embolus protocol. Images are reviewed in the axial, sagittal, and coronal planes. IV contrast was administered without complication. MIP imaging was performed. A dose lowering technique was utilized adhering to the principles of ALARA. CT DOSE: 564.29 mGy.cm FINDINGS: There is cholelithiasis. There are calcified mediastinal and hilar lymph nodes, likely postinflammatory. 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 There is a moderate right pleural effusion and small left pleural effusion which appears loculated. There are right lower lobe airspace opacities, likely representing compressive atelectasis although pneumonia could appear similar. T here is mild bronchial wall thickening. There are left basilar atelectatic changes. There is moderate respiratory motion artifact. There is mild interlobular septal edema. There is a stable low-density 27 mm nodule within the posterior mediastinum adjacent to the esophagus. IMPRESSION: 1. Partially calcified mediastinal and hilar lymphadenopathy, likely postinflammatory 2. No evidence of acute pulmonary embolism 3. Persistent moderate right pleural effusion and small partially loculated left pleural effusion 4. Right lower lobe airspace opacities likely representing compressive atelectasis although a pneumonia could appear similar 5. Mild diffuse bronchial wall thickening 6. Minimal interlobular septal edema 7. Motion degraded study 8. Stable nonspecific 27 mm posterior mediastinal nodule located adjacent to the esophagus Discharge Plan Visit Data Chief Complaint: Shortness of Breath/Dyspnea ED Provider: Truman Machado Discharge Problem: Hypoxia, Hypertension, SOB (shortness of breath), Pleural effusion, Wheezing Patient Disposition: Admitted As Inpatient Condition: Fair Forms Stand Alone Forms: [facility] Prescriptions Prescriptions: No Action simvastatin 10 mg tablet 10 mg PO DAILY RF: 0 allopurinol 100 mg tablet 100 mg PO QAM RF: 0 tamsulosin 0.4 mg capsule 0.4 mg PO DAILY RF: 0 metoprolol succinate 25 mg tablet extended release 24 hr 25 mg PO DAILY RF: 0 aspirin 325 mg Tablet 325 mg PO QAM RF: 0 PreserVision AREDS [id number] Capsule 1 cap PO BID RF: 0 enalapril maleate 5 mg Tablet 5 mg PO QAM RF: 0 gabapentin 100 mg capsule 100 mg PO BID RF: 0 finasteride 5 mg tablet 5 mg PO DAILY RF: 0 Incruse Ellipta 62.5 mcg/actuation blister with device 1 inh inhalation QPM RF: 0 Centrum Silver Tablet 1 tab PO QAM RF: 0 omega-3 fatty acids-fish oil [Fish Oil] 360-1,200 mg Capsule 1 cap PO QAM RF: 0 Referrals Referrals: Pritesh Murray DO [Primary Care Provider] - Discharge Problem: Hypertension Qualifiers: Hypertension type: unspecified Qualified Code(s): I10 - Essential (primary) hypertension
[2020-11-05] MEDS ORDERED: LABETALOL HCL IV 5 MG/ML 20ML IV STA ×2 (09:52→11:35)
[2020-11-05 09:54] LABS: Hematocrit (blood only) 49.5 % (42-52); Hemoglobin 16.4 g/dL (14.0-18.0); Mean Corpuscular Hemoglobin 33.3 pg (25-34); Mean Corpuscular Hgb Conc 33.1 g/dL (32-36); Mean Corpuscular Volume 100.4 fL (80-100); Mean Platelet Volume 12.1 fL (7.4-10.4); Platelet Count 106 K/uL (130-400); RDW Coefficient of Variation 14.5 % (11.5-14.5); RDW Standard Deviation 53.3 fL (36.4-46.3); Red Blood Count 4.93 M/uL (4.7-6.1); White Blood Count 4.98 K/uL (4.8-10.8)
--- NOTE | 2020-11-05 09:56 | XRay Report ---
XR chest 1V portable CLINICAL HISTORY: SOB COMPARISON STUDY: 10/22/2020 FINDINGS: There are postsurgical changes of a midline sternotomy. The heart is enlarged. There are sm all bilateral pleural effusions. There are progressive right lower lung zone airspace opacities and v olume loss. Since the prior study, the patient has developed left perihilar airspace opacities.[ IMPRESSION: 1. Slight interval increase in the size of the bilateral pleural effusions right larger than left 2. Progressive right basilar airspace opacities with associated volume loss. 3. Interval development of left perihilar airspace opacities possibly representing a pneumonia. ACT 112: Negative or not required by law. Electronically signed by: Brock Juarez M.D. 11/05/2020 9:55 AM
[2020-11-05 10:00] LABS: Basophils # (auto) 0.04 K/uL (0-0.2); Basophils % (auto) 0.8 %; Eosinophils # (auto) 0.08 K/uL (0-0.5); Eosinophils % (auto) 1.6 %; Lymphocytes # (auto) 0.76 K/uL (1.2-3.4); Lymphocytes % (auto) 15.3 %; Monocytes # (auto) 0.56 K/uL (0.11-0.59); Monocytes % (auto) 11.2 %; Neutrophils # (auto) 3.54 K/uL (1.4-6.5); Neutrophils % (auto) 71.1 %; Platelet Estimate Decreased (Normal); RBC Morphology Unremarkable
[2020-11-05 10:06] LABS: Albumin Level 3.2 gm/dl (3.4-5.0); BUN Creatinine Ratio 15.5 (10-20); Calcium 9.5 mg/dl (8.5-10.1); Creatinine Clr Calc Pharmacy 51.1 ml/min; Est GFR (African American) 69.4; Est GFR (Non-African American) 59.9; Potassium 3.8 mmol/L (3.5-5.1)
[2020-11-05 10:11] LABS: Albumin Globulin Ratio 0.8 (0.9-2); Bilirubin,Total 0.8 mg/dl (0.2-1); Globulin 4.2 gm/dl (2.5-4.0); Total Protein 7.4 gm/dl (6.4-8.2); Troponin I 0.042 ng/ml (0-0.045)
[2020-11-05] MEDS ORDERED: OPTIRAY 320 125ml IV ONE (10:58)
--- NOTE | 2020-11-05 11:08 | CT Scan Report ---
CT ANGIOGRAM OF THE CHEST CLINICAL HISTORY: Increasing shortness of breath. COMPARISON STUDY: 09/27/2020 TECHNIQUE: Following the IV administration of 120 mL of Optiray-320, CT angiogram of the thorax was p erformed from the thoracic inlet to the lung bases utilizing the pulmonary embolus protocol. Images a re reviewed in the axial, sagittal, and coronal planes. IV contrast was administered without complica tion. MIP imaging was performed. A dose lowering technique was utilized adhering to the principles o f ALARA. CT DOSE: 564.29 mGy.cm FINDINGS: There is cholelithiasis. There are calcified mediastinal and hilar lymph nodes, likely postinflammatory. 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 There is a moderate right pleural effusion and small left pleural effusion which appears loculated. T here are right lower lobe airspace opacities, likely representing compressive atelectasis although pn eumonia could appear similar. There is mild bronchial wall thickening. There are left basilar atelect atic changes. There is moderate respiratory motion artifact. There is mild interlobular septal edema. There is a stable low-density 27 mm nodule within the posterior mediastinum adjacent to the esophagus . IMPRESSION: 1. Partially calcified mediastinal and hilar lymphadenopathy, likely postinflammatory 2. No evidence of acute pulmonary embolism 3. Persistent moderate right pleural effusion and small partially loculated left pleural effusion 4. Right lower lobe airspace opacities likely representing compressive atelectasis although a pneumon ia could appear similar 5. Mild diffuse bronchial wall thickening 6. Minimal interlobular septal edema 7. Motion degraded study 8. Stable nonspecific 27 mm posterior mediastinal nodule located adjacent to the esophagus ACT 112: Negative or not required by law. Electronically signed by: Brock Juarez M.D. 11/05/2020 11:07 AM
[2020-11-05 11:16] LABS: Influenza A virus by PCR Negative (Neg); Influenza B virus by PCR Negative (Neg); RSV by PCR Negative (Neg); SARS CoV2 RNA(COVID-19) InHosp NEGATIVE (Negative)
[2020-11-05] MEDS ORDERED: methylPREDNISolone 125 MG/2 ML VIAL IV STA (11:22)
[2020-11-05 11:38] LABS: INR 1.1 (0.9-1.1); Partial Thromboplastin Ratio 0.9; Partial Thromboplastin Time 24.2 Seconds (21.0-31.0); Prothrombin Time 11.5 Seconds (9.0-12.0)
[2020-11-05] MEDS ORDERED: cefTRIAXone SODIUM 2,000 MG/70 ML BAG IV STA (11:39)
[2020-11-05] MEDS ORDERED: FUROSEMIDE 40 MG/4 ML VIAL IV STA (12:50)
[2020-11-05] MEDS ORDERED: METOPROLOL SUCC 50MG EXT REL TAB PO STA (12:57)
--- NOTE | 2020-11-05 13:01 | History & Physical Report ---
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 last hospitalized 09/27-09/29 with similar presentation. Had thoracentesis 950 mL removed. It was transudate of effusion with negative cytology. Saw pulmonology 10/22, thought possible heart failure component. Echocardiogram done 10/12 revealed EF WNL, severe mitral annular calcification, mild MR and mildly dilated ascending aorta admit to PCU give 40mg IV lasix now Treat empirically with Rocephin and doxy until infection entirely ruled out getting findings in left perihilar region DuoNeb 4 times daily, encourage incentive spirometry Consult pulmonology ? Need for additional thoracentesis if no improvement with IV Lasix Continue Incruse No reagan COPD exacerbation HTN Urgency pt presents with acute onset hypertension after a week of Low bps treated with IV labetolol 10mg x 2 and nitropaste, BP 170s/110 Lasix 40mg IV ordered resume home enalapril and metoprolol Lightheadedness for 1-2 weeks pt c/o dizziness after breakfast, enalapril held b/c of this but no improvement monitor closely CAD Carotid artery stenosis s/p R CEA H/o CABG. No chest pain or acute EKG changes. Continue beta bre, statin HTN Continue Toprol Enalapril recently d/c 2/2 to hypotension and dizziness in a.m. will resume CKD III Kidney function at baseline. Baseline Cr 1.3 Continue monitoring with daily BMP Soft tissue nodule on CTA chest Noted on CT scan during most recent admission, evident again today Following outpt pulm, to have repeat CT in 5 months CTA chest with a "3.1 x 2.1 cm oval-shaped soft tissue nodule which appears to be located within the posterior mediastinum adjacent to the esophagus. This could also be located within the adjacent medial aspect of the right lower lobe. This could represent an enlarged lymph node, posterior mediastinal lesion, or possibly a right lower lobe lesion" DVT Ppx: SCD/TEDS for now in event require thoracentesis, monitor daily need for chemical prophylaxis Code status: FULL PCP: Trevor Dispo: Admit to PCU. Discharge planning ordered. History of Present Illness Chief Complaint: Worsening SOB x 1 day. Primary Care Provider: Pritesh Murray DO This is an 89yo M with a PMH of CAD s/p CABG, HTN, HLD, carotid artery stenosis status post right endarterectomy, COPD, history of tobacco abuse, CKD stage III, thrombocytopenia history of parotid gland cancer (s/p parotidectomy and radia tion and other medical problems listed below who presents with shortness of breath x1 days. Of significance patient recently hospitalized 09/27 to 09/29/2020 secondary to acute hypoxic respiratory failure, right pleural effusion, loculated left pleural effusion and possible community-acquired pneumonia. He was seen and evaluated by pulmonology and underwent thoracentesis of right pleural effusion, 950 mL of serosanguineous fluid was removed. Effusion was transudate of per lights criteria. Pleural fluid:LDH 96, total protein 3.5, glucose 113, pH 7.37, Serum:LDH 210, total protein 6.6 and cytology was negative. He was treated empirically for community-acquired pneumonia although he remained afebrile, procalcitonin WNL. Post thoracentesis he was feeling much improved and followed up with pulmonology on 10/22/2020. At that time he had been doing well. Chest x-ray confirmed blunting of costophrenic angles and mild bilateral pleural effusion. At that time etiology of effusion unknown, possibly diastolic CHF. He was started on Incruse for his COPD. He presents today secondary to worsening shortness of breath x1 days. He complains of orthopnea. He further complains of AYALA which has been ongoing for several weeks. He does have a chronic dry cough which he feels is unchanged. First in the morning when he wakes up he does complain of chest tightness associated with the orthopnea. Symptoms improve after sitting in recliner for several minutes. He denies any fever, chills, sweats, dizziness, syncope, chest pain, URI symptoms, nausea, vomiting, abdominal pain, dysuria, melena or hematochezia. He has been having pack operator dizziness for the past 1 to 2 weeks. It typically occurs after he eats his morning breakfast. Home health nurse has been monitoring his blood pressure which has been lower less than 100 systolically in the morning. His enalapril has been on hold for the past week. In ED patient was saturating 79% on room air requiring 3 L of oxygen to maintain normal saturation. He was significantly hypertensive. He required IV labetalol x2 as well as Nitropaste. Blood pressure at 1025 186/119. Lab work did not reveal significant leukocytosis, H&H was WNL, platelets stable at 106, CMP generally unremarkable. Chest x-ray revealed slight interval increase in size of bilateral pleural effusions right larger than left, progressive right basilar opacity with associated volume loss and interval development of left perihilar airspace opacity possibly representing a pneumonia. Allergies Allergy/AdvReac Type Severity Reaction Status Date / Time No Known Allergies Allergy Unknown Verified 11/05/20 10:28 Home Medications Medication Instructions Recorded Confirmed Type PreserVision AREDS 1 cap PO BID 09/27/20 11/05/20 History allopurinol 100 mg PO QAM 09/27/20 11/05/20 History aspirin 325 mg PO QAM 09/27/20 11/05/20 History metoprolol succinate 25 mg PO DAILY 09/27/20 11/05/20 History simvastatin 10 mg PO DAILY 09/27/20 11/05/20 History tamsulosin 0.4 mg PO DAILY 09/27/20 11/05/20 History finasteride 5 mg PO DAILY 11/05/20 11/05/20 History gabapentin 100 mg PO BID 11/05/20 11/05/20 History pjxgmdqmrtog-[id number]-qmkaxf 1 tab PO QAM 11/05/20 11/05/20 History [Centrum Silver] omega-3 fatty acids-fish oil [Fish 1 cap PO QAM 11/05/20 11/05/20 History Oil] umeclidinium [Incruse Ellipta] 1 inh INHALATION QPM 11/05/20 11/05/20 History Past Med/Surg History Medical History (Updated 11/05/20 @ 14:46 by Josue Jauregui MD) CAD (coronary artery disease) Carotid stenosis CKD (chronic kidney disease), stage III Compressive atelectasis COPD (chronic obstructive pulmonary disease) History of DVT (deep vein thrombosis) History of malignant neoplasm of parotid gland HTN (hypertension) Surgical History History of coronary artery bypass graft History of right-sided carotid endarterectomy Hx of parotidectomy Family History Other Heart disease Social History Smoking Status: Never smoker Tobacco Type: Cigarettes, Pipe and Cigars Hx Alcohol Use: No Hx Substance Use: No Preferred Language: Congolese Communication Ability: Effective [employer] Distributor Required: No Beliefs That Will Affect Care: None marital status: Current Living Situation: Spouse Current Living Situation Comment: Home with Other Information That Helps Us Care for You: No Feels Safe at Home: Yes Safety Concerns: Feels Safe At This Time Assistive Devices: Denture - Upper, Denture - Lower, Glasses and Hearing Aid - Right Physical Exam Physical Exam: Constitutional: WD/WN, elderly, male, vitals as above, NAD, sitting up in bed, pleasant, conversing easily Head: Normocephalic, Atraumatic Eyes: PERRL, conjunctivae normal, anicteric sclerae ENMT: external ear and nose normal, oropharynx normal Neck: trachea midline, no thyromegaly normal visual inspection Respiratory: normal respiratory effort, lungs clear to auscultation, scant expiratory wheeze right midlung,no rales, rhonchi. Normal insp/exp effort, no accessory muscle use Cardiovascular: RRR, no murmur, no edema Vessels: no JVD or carotid bruit Chest: normal inspection of chest Abdomen: normal bowel sounds, soft, nontender, no hepatosplenomegaly Musculoskeletal: no cyanosis or clubbing, extremities motor strength 5/5 Skin: no rashes, warm and dry normal turgor Neurologic: PERRL, EOMI, accommodation nl, no face palsy, no dysarthria CN's II-XI intact bilaterally and moves all extremities Psychiatric: A+Ox3, euthymic affect Lymphatic: no cervical or axillary lymphadenopathy : deferred Results & Data Results & Data ([facility]) Vital Signs (Past 12 Hours) Vital Signs Temp Pulse Pulse Resp BP BP Pulse Ox 11/05/20 12:03 87 24 152/89 H 94 11/05/20 11:29 99 H 24 189/117 H 93 11/05/20 11:09 96 H 20 174/105 H 97 11/05/20 10:25 91 H 24 186/119 H 96 11/05/20 09:59 92 H 22 98 11/05/20 09:37 37.2 C 114 H 24 223/140 H 97 Diagnostic Findings Chest CTA: IMPRESSION: 1. Partially calcified mediastinal and hilar lymphadenopathy, likely postinflammatory 2. No evidence of acute pulmonary embolism 3. Persistent moderate right pleural effusion and small partially loculated left pleural effusion 4. Right lower lobe airspace opacities likely representing compressive atelectasis although a pneumonia could appear similar 5. Mild diffuse bronchial wall thickening 6. Minimal interlobular septal edema 7. Motion degraded study 8. Stable nonspecific 27 mm posterior mediastinal nodule located adjacent to the esophagus CXR: IMPRESSION: 1. Slight interval increase in the size of the bilateral pleural effusions right larger than left 2. Progressive right basilar airspace opacities with associated volume loss. 3. Interval development of left perihilar airspace opacities possibly representing a pneumonia. Medications Administered Discontinued Medications Albuterol (Albut/Ipratrop 3mg/0.5mg Neb 3 Ml Vial) 3 ml INH NOW STA Stop: 11/05/20 09:28 Last Admin: 11/05/20 09:58 Dose: 3 ml Documented by: [id number] Furosemide (Furosemide 40 Mg/4 Ml Vial) 40 mg IV NOW STA Stop: 11/05/20 12:51 Last Admin: 11/05/20 13:05 Dose: 40 mg Documented by: [id number] Ceftriaxone Sodium (Rocephin) 2,000 mg in 70 mls @ 140 mls/hr IV NOW STA Stop: 11/05/20 12:08 Last Infusion: 11/05/20 12:28 Dose: 0 mls/hr Documented by: [id number] Admin: 11/05/20 11:58 Dose: 140 mls/hr Documented by: [id number] Ioversol (Optiray 320 125ml) 120 ml IV ONCE ONE Stop: 11/05/20 10:59 Last Admin: 11/05/20 10:58 Dose: 120 ml Documented by: [id number] Labetalol HCl (Labetalol Hcl Iv 5 Mg/Ml 20ml) 10 mg IV NOW STA Stop: 11/05/20 09:53 Last Admin: 11/05/20 10:16 Dose: 10 mg Documented by: [id number] Cosigned by: [id number] Labetalol HCl (Labetalol Hcl Iv 5 Mg/Ml 20ml) 10 mg IV NOW STA Stop: 11/05/20 11:36 Last Admin: 11/05/20 11:58 Dose: 10 mg Documented by: [id number] Cosigned by: [id number] Methylprednisolone (Methylprednisolone 125 Mg/2 Ml Vial) 60 mg IV NOW STA Stop: 11/05/20 11:23 Last Admin: 11/05/20 11:27 Dose: 60 mg Documented by: [id number] Nitroglycerin (Nitroglycerin 2% Ointment 30gm Tube) Confirm Administered Dose 36 inch .ROUTE .STK-MED ONE Stop: 11/05/20 09:25 Last Admin: 11/05/20 09:26 Dose: 2 inch Documented by: [id number] Nitroglycerin (Nitroglycerin 2% Ointment 30gm Tube) 2 inch EXT NOW STA Stop: 11/05/20 09:28 Last Admin: 11/05/20 09:46 Dose: Not Given Documented by: [id number] ECG Rate (beats per minute): 105 Rhythm: sinus tachycardia COVID-19 Results Results COVID-19 Adm Lab Results: RBC 4.93 M/uL (4.7-6.1) 11/05/20 WBC 4.98 K/uL (4.8-10.8) 11/05/20 Hgb 16.4 g/dL (14.0-18.0) 11/05/20 Hct 49.5 % (42-52) 11/05/20 Plt Count 106 K/uL (130-400) L 11/05/20 Neutrophils (%) (Auto) 71.1 % 11/05/20 Lymphocytes (%) (Auto) 15.3 % 11/05/20 Monocytes # (Auto) 0.56 K/uL (0.11-0.59) 11/05/20 Eosinophils # (Auto) 0.08 K/uL (0-0.5) 11/05/20 Immature Granulocyte % (Auto) 0.0 % 11/05/20 Neutrophils # (Auto) 3.54 K/uL (1.4-6.5) 11/05/20 Lymphocytes # (Auto) 0.76 K/uL (1.2-3.4) L 11/05/20 Monocytes # (Auto) 0.56 K/uL (0.11-0.59) 11/05/20 Eosinophils # (Auto) 0.08 K/uL (0-0.5) 11/05/20 Basophils # (Auto) 0.04 K/uL (0-0.2) 11/05/20 Immature Granulocyte # (Auto) 0.00 K/uL (0.00-0.02) 11/05/20 Red Blood Cell Morphology Unremarkable 11/05/20 Na 141 mmol/L (136-145) 11/05/20 K 3.8 mmol/L (3.5-5.1) 11/05/20 Cl 105 mmol/L (98-107) 11/05/20 CO2 31 mmol/L (21-32) 11/05/20 Anion Gap 5.0 (3-11) 11/05/20 BUN 17 mg/dl (7-18) 11/05/20 Creatinine 1.09 mg/dl (0.6-1.4) 11/05/20 BUN/Creatinine Ratio 15.5 (10-20) 11/05/20 Glucose Level 95 mg/dl (70-99) 11/05/20 Ca 9.5 mg/dl (8.5-10.1) 11/05/20 Total Bilirubin 0.8 mg/dl (0.2-1) 11/05/20 AST/SGOT 29 U/L (15-37) 11/05/20 ALT/SGPT 29 U/L (12-78) 11/05/20 Alkaline Phosphatase 132 U/L (45-117) H 11/05/20 Total Protein 7.4 gm/dl (6.4-8.2) 11/05/20 Albumin 3.2 gm/dl (3.4-5.0) L 11/05/20 Globulin 4.2 gm/dl (2.5-4.0) H 11/05/20 Albumin/Globulin Ratio 0.8 (0.9-2) L 11/05/20 Troponin I 0.042 ng/ml (0-0.045) 11/05/20 UY-Eqo-T-Type Natriuretic Pep 1570 pg/ml (0-1800) 11/05/20 Procalcitonin < 0.05 ng/ml (0-0.5) 11/05/20 PTT 24.2 Seconds (21.0-31.0) 11/05/20 INR 1.1 (0.9-1.1) 11/05/20 COVID-19 PCR NEGATIVE (Negative) 11/05/20 Influenza Virus Type A (PCR) Negative (Neg) 11/05/20 Influenza Virus Type B (PCR) Negative (Neg) 11/05/20 Chest X-Ray 11/05/20 Code Status & VTE Plan Code Status Full Code VTE Prophylaxis Plan VTE Prophylaxis will be ordered: Yes Supervising Physician Co-Signing Physician Notes Attending addendum: The patient was seen and examined in telemetry unit He is an 89-year-old male with significant past medical history of CAD status post CABG, hypertension, hyperlipidemia, COPD, CKD stage III including other comorbid conditions as mentioned in H&P He is admitted with increasing shortness of breath, chest heaviness and tightness for the last few days He was noted to have similar situation as happened during his last admission and this time with very high blood pressure Denies any significant symptoms since admission On examination Sitting at the edge of the bed with minimal shortness of breath at rest Hemodynamically stable with high blood pressure at 176/97 Chest-decreased breath sounds bilaterally more on the right than the left Heart-S1-S2, regular Abdomen-benign, nontender. Bowel sounds present Extremities-trace edema bilaterally His admission labs, EKG and imaging studies reviewed Has hypertensive urgency-getting treatment to improve blood pressure Reaccumulation of right pleural effusion and to some extent on the left side likely secondary to CHF Will have pneumonia on top of pleural effusion Has been getting intravenous Lasix Pulmonary consulted for probable thoracentesis tomorrow Agree with assessment and plan as outlined above by Shira Houser
[2020-11-05] MEDS ORDERED: ONDANSETRON INJ 2 MG/ML 2 ML VIAL IV PRN (13:44)
[2020-11-05] MEDS ORDERED: POLYETHYLENE (MIRALAX) 17 GM PACK PO PRN (13:44)
[2020-11-05] MEDS ORDERED: MAGNESIUM HYDROXIDE SUSP 30 ML UDC PO PRN (13:44)
[2020-11-05] MEDS ORDERED: ALUMINUM/MAGNESIUM SUSP 30 ML UDC PO PRN (13:44)
--- NOTE | 2020-11-05 14:46 | Pulmonary Consultation ---
Date of Consultation November 05, 2020 Assessment & Plan (1) Hypoxia: 89-year-old male with a past medical history of coronary artery disease, hypertension, COPD and tobacco abuse presenting to the hospital due to shortness of breath. He was found to be in hypertensive urgency. Likely etiology of shortness of breath and acute hypoxemic respiratory failure is exacerbation of underlying diastolic heart failure. Interestingly, his proBNP is within normal limits. The CT chest does demonstrate a loculated left pleural effusion and a moderate-sized right pleural effusion with compressive atelectasis. Recommend IV diuretics today with a follow-up chest x-ray tomorrow. If he continues to be hypoxic and short of breath status post diuresis, will consider thoracentesis tomorrow. Chest x-ray ordered tomorrow morning by the hospitalist service to further evaluate response to diuretic therapy. Would recommend checking daily weights and closely monitoring his input and output. He did receive 40 mg of IV Lasix in the ER. His blood pressure continues to be quite elevated. Will defer management to his primary team. Severe hypertension will contribute to worsening diastolic heart failure. Would prefer to avoid repeat pleural procedures in this elderly gentleman. I do not suspect a bacterial pneumonia at this time as his procalcitonin level is normal, he is afebrile and his symptoms are not consistent with pneumonia. The right lower lobe infiltrate is likely secondary to compressive atelectasis from the pleural effusion. Would recommend discontinuing antibiotics unless another source is considered to be likely. Incentive spirometry is ordered. Patient does not appear to be in a COPD exacerbation at this time. Thank you for the consultation. We will continue to follow along with you. (2) SOB (shortness of breath): (3) Pleural effusion: (4) Hypertensive urgency: (5) Abnormal chest CT: (6) Compressive atelectasis: History of Present Illness Reason for Consultation: Moderate-sized right pleural effusion Attending Physician: Tano Houser MD History of Present Illness 89-year-old male with a past medical history of coronary artery disease status post CABG, COPD, hypertension and CKD stage III presenting to the hospital due to shortness of breath for the past 1 day. He was recently discharged from the hospital on September 29, 2020 for similar symptoms. He underwent a thoracentesis on 09/28/2020 which yielded 950 mL of pleural fluid on the right which seemed to be a transudate. He did have a lymphocytic predominance to the pleural effusion of unclear etiology. He follows with Dr. Wallace as an outpatient and last saw him on 11/08/2020. Patient has evidence of orthopnea at night and in the morning. He also has some chest tightness. In the ER he was found to be hypoxic to 79% and required supplemental oxygen, 3 L. He was also hypertensive and this improved with labetalol and Nitropaste. Transthoracic echo from 09/28/2020 reviewed which demonstrated left ventricular systolic function is normal. Moderate concentric LVH. Severe mitral annular calcification and mild mitral regurgitation. WBC count is normal at 4980. Procalcitonin was within normal limits. proBNP was within normal limits. Chest x-ray today demonstrates slight interval increase in the bilateral pleural effusions, right greater than left. Chest CTA today demonstrates partially calcified mediastinal and hilar nodes likely sequelae of prior granulomatous disease. Persistent moderate right pleural effusion and small partially loculated left effusion. Right compressive atelectasis. Mild diffuse bronchial wall thickening. Intralobular septal edema. Stable nonspecific 27 mm posterior mediastinal nodule adjacent to the esophagus. Allergies Allergy/AdvReac Type Severity Reaction Status Date / Time No Known Allergies Allergy Unknown Verified 11/05/20 10:28 Home Medications Medication Instructions Recorded Confirmed Type PreserVision AREDS 1 cap PO BID 09/27/20 11/05/20 History allopurinol 100 mg PO QAM 09/27/20 11/05/20 History aspirin 325 mg PO QAM 09/27/20 11/05/20 History metoprolol succinate 25 mg PO DAILY 09/27/20 11/05/20 History simvastatin 10 mg PO DAILY 09/27/20 11/05/20 History tamsulosin 0.4 mg PO DAILY 09/27/20 11/05/20 History finasteride 5 mg PO DAILY 11/05/20 11/05/20 History gabapentin 100 mg PO BID 11/05/20 11/05/20 History mmsbhfbzuzah-xjpippxr-npxayu 1 tab PO QAM 11/05/20 11/05/20 History [Centrum Silver] omega-3 fatty acids-fish oil [Fish 1 cap PO QAM 11/05/20 11/05/20 History Oil] umeclidinium [Incruse Ellipta] 1 inh INHALATION QPM 11/05/20 11/05/20 History Patient History Medical History (Updated 11/05/20 @ 14:46 by Josue Jauregui MD) CAD (coronary artery disease) Carotid stenosis CKD (chronic kidney disease), stage III Compressive atelectasis COPD (chronic obstructive pulmonary disease) History of DVT (deep vein thrombosis) History of malignant neoplasm of parotid gland HTN (hypertension) Surgical History History of coronary artery bypass graft History of right-sided carotid endarterectomy Hx of parotidectomy Family History Other Heart disease Social History Smoking Status: Never smoker Tobacco Type: Cigarettes, Pipe and Cigars Hx Alcohol Use: No Hx Substance Use: No Preferred Language: Ecuadorean Communication Ability: Effective High School Tutor Required: No Beliefs That Will Affect Care: None marital status: Current Living Situation: Spouse Current Living Situation Comment: Home with Other Information That Helps Us Care for You: No Feels Safe at Home: Yes Safety Concerns: Feels Safe At This Time Assistive Devices: Denture - Upper, Denture - Lower, Glasses and Hearing Aid - Right Review of Systems Review of Systems: All systems reviewed & are unremarkable except as noted in HPI & below Physical Exam Constitutional: Elderly-appearing male in no apparent distress. Nasal cannula in place. Eyes: PERRL, conjunctivae normal, anicteric sclerae ENMT: external ear and nose normal, oropharynx normal Respiratory: Decreased lung sounds bilaterally. Diminished on the right base. Cardiovascular: Rate/Rhythm: regular rate and regular rhythm Heart Sounds: normal S1 and normal S2 Gastrointestinal (Abdomen): normal bowel sounds, soft, nontender, no hepatosplenomegaly Musculoskeletal: no cyanosis or clubbing, extremities motor strength 5/5 Skin: no rashes, warm and dry Neurologic: PERRL, EOMI, accommodation nl, no face palsy, no dysarthria Psychiatric: A+Ox3, euthymic affect Results & Data Results & Data ([facility]) Vital Signs (Past 12 Hours) Vital Signs Temp Pulse Pulse Resp BP BP Pulse Ox 11/05/20 13:49 97.9 F 92 H 18 176/97 H 92 11/05/20 13:29 83 28 H 158/95 H 93 11/05/20 12:03 87 24 152/89 H 94 11/05/20 11:29 99 H 24 189/117 H 93 11/05/20 11:09 96 H 20 174/105 H 97 11/05/20 10:25 91 H 24 186/119 H 96 11/05/20 09:59 92 H 22 98 11/05/20 09:37 99.0 F 114 H 24 223/140 H 97 I reviewed the vital signs labs, imaging and previous notes as noted in the HPI. PG Care Time/CCT Total # of Minutes Spent Total Time Spent with Patient: Total time spent is greater than 50% in coordination of care (as documented) at patient's floor/unit and/or counseling patient: Coding Level of Care Code 07394 Initial Inpt Care Lvl 3 Diagnoses Hypoxia R09.02 SOB (shortness of breath) R06.02 Pleural effusion J90 Hypertensive urgency I16.[address] R93.89 Compressive atelectasis J98.11
[2020-11-05] MEDS: ALBUT/IPRATROP 3MG/0.5MG NEB 3 ML VIAL NEB SCH ×2 (14:47→19:06)
[2020-11-05] MEDS ORDERED: DOXYCYCLINE HYCLATE 100 MG CAP PO SCH (15:00)
[2020-11-05] MEDS: HEPARIN SOD 5,000 UNIT/0.5 ML VIAL SQ SCH ×2 (15:19→21:38)
[2020-11-05] MEDS ORDERED: FUROSEMIDE 40 MG in SYRINGE 0 ML IV ONE (15:45)
[2020-11-05] MEDS: ACETAMINOPHEN 325 MG TAB PO PRN (18:29)
[2020-11-05] MEDS: UMECLIDINIUM BROMIDE 62.5MCG/BLISTER 7 PUFFS/INHALER INH SCH (21:38)
[2020-11-05] MEDS: GABAPENTIN 100 MG CAP PO SCH (21:38)
--- NOTE | 2020-11-06 05:52 | Electrocardiogram Report ---
Test Reason : Blood Pressure : / mmHG Vent. Rate : 105 BPM Atrial Rate : 105 BPM P-R Int : 170 ms QRS Dur : 082 ms QT Int : 350 ms P-R-T Axes : 027 -37 052 degrees QTc Int : 462 ms Sinus tachycardia Left axis deviation Low voltage QRS Anterior infarct Abnormal ECG When compared with ECG of 27-SEP-2020 12:16, Questionable change in initial forces of Anterior leads Confirmed by Rowdy Mason ([id number]) on 11/06/2020 5:51:52 AM Referred By: Confirmed By:Rowdy Mason
[2020-11-06] MEDS: HEPARIN SOD 5,000 UNIT/0.5 ML VIAL SQ SCH ×3 (05:56→21:05)
[2020-11-06] MEDS: ALBUT/IPRATROP 3MG/0.5MG NEB 3 ML VIAL NEB SCH (07:04)
[2020-11-06 07:11] LABS: Hematocrit (blood only) 44.9 % (42-52); Hemoglobin 15.1 g/dL (14.0-18.0); Mean Corpuscular Hgb Conc 33.6 g/dL (32-36); Mean Platelet Volume 12.5 fL (7.4-10.4); Platelet Count 123 K/uL (130-400); RDW Coefficient of Variation 14.8 % (11.5-14.5); RDW Standard Deviation 52.8 fL (36.4-46.3); Red Blood Count 4.58 M/uL (4.7-6.1); White Blood Count 5.96 K/uL (4.8-10.8)
[2020-11-06 07:31] LABS: BUN Creatinine Ratio 20.2 (10-20); Calcium 8.7 mg/dl (8.5-10.1); Creatinine Clr Calc Pharmacy 43.1 ml/min; Est GFR (African American) 57.1; Est GFR (Non-African American) 49.3
[2020-11-06 07:36] LABS: Basophils # (auto) 0.01 K/uL (0-0.2); Basophils % (auto) 0.2 %; Immature Granulocytes # (auto) 0.01 K/uL (0.00-0.02); Immature Granulocytes % (auto) 0.2 %; Lymphocytes # (auto) 0.55 K/uL (1.2-3.4); Lymphocytes % (auto) 9.2 %; Monocytes # (auto) 0.88 K/uL (0.11-0.59); Monocytes % (auto) 14.8 %; Neutrophils # (auto) 4.51 K/uL (1.4-6.5); Neutrophils % (auto) 75.6 %
[2020-11-06] MEDS: ENALAPRIL MALEATE 5 MG TAB PO SCH (07:59)
[2020-11-06] MEDS: TAMSULOSIN HCL 0.4 MG CAP PO SCH (07:59)
[2020-11-06] MEDS: SIMVASTATIN 10 MG TAB PO SCH (07:59)
[2020-11-06] MEDS: METOPROLOL SUCC 25MG EXT REL TAB PO SCH (07:59)
[2020-11-06] MEDS: allopurinoL 100 MG TAB PO SCH (07:59)
[2020-11-06] MEDS: FINASTERIDE 5 MG TAB PO SCH (07:59)
[2020-11-06] MEDS: OMEGA-3 (PURIFIED FISH OIL) 1 GM CAP PO SCH (08:00)
[2020-11-06] MEDS: GABAPENTIN 100 MG CAP PO SCH ×2 (08:00→20:47)
[2020-11-06] MEDS: ASPIRIN 325 MG ECTAB PO SCH ×2 (08:03→09:53)
--- NOTE | 2020-11-06 08:08 | XRay Report ---
XR chest 1V portable CLINICAL HISTORY: Pleural effusion COMPARISON STUDY: 11/05/2020 FINDINGS: The heart remains enlarged. There are postsurgical changes of midline sternotomy. There is a trace left pleural effusion and small right pleural effusion. There is persistent right lower lobe atelectasis/consolidation. There are persistent left mid lung zone airspace opacities[ IMPRESSION: 1. Persistent bilateral pleural effusions right greater than left 2. Persistent right basilar atelectasis/consolidation 3. Persistent left mid lung zone airspace opacities ACT 112: Negative or not required by law. Electronically signed by: Brock Juarez M.D. 11/06/2020 8:07 AM
[2020-11-06] MEDS ORDERED: ALBUT/IPRATROP 3MG/0.5MG NEB 3 ML VIAL NEB PRN (08:28)
[2020-11-06] MEDS ORDERED: CEROVITE ADV FORMULA TAB PO SCH (09:00)
[2020-11-06] MEDS ORDERED: FUROSEMIDE 40 MG in SYRINGE 0 ML IV ONE (09:30)
--- NOTE | 2020-11-06 09:44 | Pulmonology Progress Note ---
Date of Service November 06, 2020 Assessment & Plan (1) Hypoxia: 89-year-old male with a past medical history of coronary artery disease, hypertension, COPD and tobacco abuse presenting to the hospital due to shortness of breath. He was found to be in hypertensive urgency. Likely et iology of shortness of breath and acute hypoxemic respiratory failure is exacerbation of underlying diastolic heart failure. He feels clinically improved from a shortness of breath standpoint compared to yesterday. His blood pressure still remains elevated, recommend better control as this will impact his diastolic dysfunction. I am giving him an extra dose of Lasix today, 40 mg IV. His creatinine did have a mild increase, but it is still within normal limits. We will reassess the need for diagnostic/therapeutic thoracentesis tomorrow. The patient would like to avoid thoracentesis unless absolutely necessary. Of note, his prior right- sided pleural effusion did appear to be a transudate, however, there was a lymphocytic predominance of unclear etiology. I do not suspect a bacterial pneumonia at this time as his procalcitonin level is normal, he is afebrile and his symptoms are not consistent with pneumonia. The right lower lobe infiltrate is likely secondary to compressive atelectasis from the pleural effusion. Incentive spirometry is ordered. Patient does not appear to be in a COPD exacerbation at this time. We will continue to follow along with you. (2) SOB (shortness of breath): (3) Pleural effusion: (4) Hypertensive urgency: (5) Abnormal chest CT: (6) Compressive atelectasis: Admission and Anticipated Discharge Date Admission Date: November 05, 2020 Subjective Patient is sitting up and eating his breakfast today. He feels that his shortness of breath is improved. He did feel like he was going to "pass out" during eating his breakfast. The symptoms resolved quickly. He is still requiring 3 L of oxygen and saturating around 92%. No chest pain, fevers or chills no night sweats. Notes that his leg edema is minimal. Review of Systems Review of Systems: All systems reviewed & are unremarkable except as noted in HPI & below Physical Exam Constitutional: Elderly-appearing male in no apparent distress. Nasal cannula in place. Eyes: PERRL, conjunctivae normal, anicteric sclerae ENMT: external ear and nose normal, oropharynx normal Respiratory: Decreased lung sounds bilaterally. Diminished on the right base. Cardiovascular: Rate/Rhythm: regular rate and regular rhythm Heart Sounds: normal S1 and normal S2 Gastrointestinal (Abdomen): normal bowel sounds, soft, nontender, no hepatosplenomegaly Musculoskeletal: no cyanosis or clubbing, extremities motor strength 5/5 Skin: no rashes, warm and dry Neurologic: PERRL, EOMI, accommodation nl, no face palsy, no dysarthria Psychiatric: A+Ox3, euthymic affect Results & Data Results & Data ([facility]) Vital Signs (Past 12 Hours) Vital Signs Temp Pulse Pulse Resp BP Pulse Ox 11/06/20 08:28 93 H 11/06/20 07:00 97.9 F 81 18 176/96 H 92 11/06/20 04:12 97.7 F 85 20 127/75 95 11/05/20 23:41 97.3 F L 86 20 114/66 94 I reviewed the x-ray from today which was relatively unchanged compared to yesterday. PG Care Time/CCT Total # of Minutes Spent Total Time Spent with Patient: Total time spent is greater than 50% in coordination of care (as documented) at patient's floor/unit and/or counseling patient: Coding Level of Care Code 03658 Subseq Hosp Care Lvl 3 Diagnoses Hypoxia R09.02 SOB (shortness of breath) R06.02 Pleural effusion J90 Hypertensive urgency I16.[address] R93.89 Compressive atelectasis J98.11
[2020-11-06] MEDS: CEROVITE ADV FORMULA TAB PO SCH (11:50)
[2020-11-06] MEDS ORDERED: cefTRIAXone SODIUM 2,000 MG in DEXTROSE 5% 50 ML IV SCH (12:00)
--- NOTE | 2020-11-06 15:28 | Hospitalist Progress Note ---
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 Last hospitalized 09/27-09/29 with similar presentation. Had thoracentesis 950 mL removed. It was transudate of effusion with negative cytology. Saw pulmonology 10/22, thought possible heart failure component. Echocardiogram done 10/12 revealed EF WNL, severe mitral annular calcification, mild MR and mildly dilated ascending aorta He likely has acute on chronic diastolic heart failure Has been receiving intravenous furosemide since admission Appreciate pulmonary input and recommendation He has been improving a lot clinically Plan for possible thoracentesis tomorrow if there is no improvement of effusion He does not want to have thoracentesis and wants to avoid it if possible Hypertensive crisis pt presents with acute onset hypertension after a week of Low bps Associated with shortness of breath,orthopnea and lightheadedness Treated with IV labetolol 10mg x 2 and nitropaste, BP 170s/110 Lasix 40mg IV ordered Resume home enalapril and metoprolol Blood pressure is controlled this morning Lightheadedness for 1-2 weeks pt c/o dizziness after breakfast, enalapril held b/c of this but no improvement monitor closely CAD Carotid artery stenosis s/p R CEA H/o CABG. No chest pain or acute EKG changes. Continue beta bre, statin CKD III Kidney function at baseline. Baseline Cr 1.3 Continue monitoring with daily BMP Has been receiving intravenous furosemide Will monitor PRP and electrolytes Soft tissue nodule on CTA chest Noted on CT scan during most recent admission, evident again today Following outpt pulm, to have repeat CT in 5 months CTA chest with a "3.1 x 2.1 cm oval-shaped soft tissue nodule which appears to be located within the posterior mediastinum adjacent to the esophagus. This could also be located within the adjacent medial aspect of the right lower lobe. This could represent an enlarged lymph node, posterior mediastinal lesion, or possibly a right lower lobe lesion" DVT Ppx: SCD/TEDS for now in event require thoracentesis, monitor daily need for chemical prophylaxis Code status: FULL PCP: Trevor Dispo: Admit to PCU. Discharge planning ordered. Admission and Anticipated Discharge Date Admission Date: November 05, 2020 Subjective 11/06/2020 The patient was seen and examined in telemetry unit He is very hard of hearing but has been feeling much better as of today Denies any more shortness of breath, chest heaviness or any nausea and or vomiting Review of Systems Review of Systems: All systems reviewed and are unremarkable except as noted below Respiratory: no cough and no dyspnea Physical Exam Physical Exam: Lying in bed comfortably Constitutional: well developed and well nourished; not ill appearing Eyes: PERRL, conjunctivae normal, anicteric sclerae ENMT: external ear and nose normal, oropharynx normal Neck: trachea midline, no thyromegaly Respiratory: no respiratory distress Auscultation: + diminished lung sounds (More on the right base than the left) and + crackles (Minimal crackles bibasilarly) Cardiovascular: Rate/Rhythm: regular rate and regular rhythm Heart Sounds: no murmur Extremities: + edema (Trace edema bilaterally) Gastrointestinal (Abdomen): Inspection/Auscultation: normal bowel sounds; abdomen not distended Percussion/Palpation: abdomen soft; abdomen nontender Musculoskeletal: No acute arthritis in any joint Neurologic: Alert, awake and oriented x3. He is very hard of hearing. Minimal generalized weakness without any focal weakness Psychiatric: A+Ox3, euthymic affect Lymphatic: no cervical or axillary lymphadenopathy Results & Data Results & Data ([facility]) Vital Signs (Past 12 Hours) Vital Signs Temp Pulse Pulse Resp BP Pulse Ox 11/06/20 11:24 36.7 C 88 18 116/69 94 11/06/20 08:28 93 H 11/06/20 07:00 36.6 C 81 18 176/96 H 92 11/06/20 04:12 36.5 C 85 20 127/75 95 Laboratory Results Short CBC 11/06/20 Range/Units 06:16 WBC 5.96 (4.8-10.8) K/uL Hgb 15.1 (14.0-18.0) g/dL Hct 44.9 (42-52) % Plt Count 123 L (130-400) K/uL BMP 11/06/20 06:16 Sodium 140 Potassium 5.0 D Chloride 103 Carbon Dioxide 33 H BUN 26 H D Creatinine 1.28 Glucose 106 H Calcium 8.7 Medications Administered Current Inpatient Medications Acetaminophen (Acetaminophen 325 Mg Tab) 650 mg PO Q4H PRN PRN Reason: Pain or Fever Stop: 12/05/20 13:43 Last Admin: 11/05/20 18:29 Dose: 650 mg Documented by: Al Hydrox/Mg Hydrox/Simethicone (Aluminum/Magnesium Susp 30 Ml Udc) 15 ml PO Q4H PRN PRN Reason: Dyspepsia Stop: 12/05/20 13:43 Albuterol (Albut/Ipratrop 3mg/0.5mg Neb 3 Ml Vial) 3 ml NEB QIDR PRN PRN Reason: Shortness Of Breath Or Wheezin Stop: 12/05/20 14:59 Allopurinol (Allopurinol 100 Mg Tab) [facility] [place] Stop: 12/06/20 08:59 Last Admin: 11/06/20 07:59 Dose: 100 mg Documented by: Aspirin (Aspirin 325 Mg Ectab) 325 mg PO QAM [facility] Stop: 12/06/20 08:59 Last Admin: 11/06/20 09:53 Dose: 325 mg Documented by: Enalapril Maleate (Enalapril Maleate 5 Mg Tab) 5 mg PO QAM [facility] Stop: 12/06/20 08:59 Last Admin: 11/06/20 07:59 Dose: 5 mg Documented by: Finasteride (Finasteride 5 Mg Tab) 5 mg PO DAILY [facility] Stop: 12/06/20 08:59 Last Admin: 11/06/20 07:59 Dose: 5 mg Documented by: Fish Oil ([place]-3 (Purified Fish Oil) 1 Gm Cap) 1 gm PO QAM [facility] Stop: 12/06/20 08:59 Last Admin: 11/06/20 08:00 Dose: 1 gm Documented by: Gabapentin (Gabapentin 100 Mg Cap) 100 mg PO BID [facility] Stop: 12/05/20 20:59 Last Admin: 11/06/20 08:00 Dose: 100 mg Documented by: Heparin Sodium (Porcine) (Heparin Sod 5,000 Unit/0.5 Ml Vial) 5,000 units SQ Q8 [facility] Stop: 12/05/20 13:59 Last Admin: 11/06/20 14:39 Dose: 5,000 units Documented by: Magnesium Hydroxide (Magnesium Hydroxide Susp 30 Ml Udc) 30 ml PO Q12H PRN PRN Reason: Constipation Stop: 12/05/20 13:43 Metoprolol Succinate (Metoprolol Succ 25mg Ext Rel Tab) 25 mg PO DAILY [facility] Stop: 12/06/20 08:59 Last Admin: 11/06/20 07:59 Dose: 25 mg Documented by: Multivitamins/Minerals (Cerovite Adv Formula Tab) 1 tab PO QDL [facility] Stop: 12/06/20 11:29 Last Admin: 11/06/20 11:50 Dose: 1 tab Documented by: Ondansetron HCl (Ondansetron Inj 2 Mg/Ml 2 Ml Vial) 4 mg IV Q6H PRN PRN Reason: Nausea Stop: 12/05/20 13:43 Polyethylene Glycol (Polyethylene (Miralax) 17 Gm Pack) 17 gm PO DAILY PRN PRN Reason: Constipation Stop: 12/05/20 13:43 Simvastatin (Simvastatin 10 Mg Tab) 10 mg PO DAILY [facility] Stop: 12/06/20 08:59 Last Admin: 11/06/20 07:59 Dose: 10 mg Documented by: Tamsulosin HCl (Tamsulosin Hcl 0.4 Mg Cap) 0.4 mg PO DAILY [facility] Stop: 12/06/20 08:59 Last Admin: 11/06/20 07:59 Dose: 0.4 mg Documented by: Umeclidinium Tiline (Umeclidinium Tiline 62.5mcg/Blister 7 Puffs/Inhaler) 1 puffs INH QPM [facility] Stop: 12/05/20 20:59 Last Admin: 11/05/20 21:38 Dose: Not Given Documented by:
[2020-11-06] MEDS: UMECLIDINIUM BROMIDE 62.5MCG/BLISTER 7 PUFFS/INHALER INH SCH (20:45)
[2020-11-07] MEDS: ACETAMINOPHEN 325 MG TAB PO PRN (05:06)
[2020-11-07] MEDS: HEPARIN SOD 5,000 UNIT/0.5 ML VIAL SQ SCH ×3 (05:07→20:28)
[2020-11-07 06:52] LABS: BUN Creatinine Ratio 26.8 (10-20); Creatinine Clr Calc Pharmacy 41.7 ml/min; Est GFR (Non-African American) 47.5; Magnesium 2.1 mg/dl (1.8-2.4); Phosphorus 3.5 mg/dl (2.5-4.9); Potassium 3.9 mmol/L (3.5-5.1)
[2020-11-07] MEDS: allopurinoL 100 MG TAB PO SCH (08:36)
[2020-11-07] MEDS: GABAPENTIN 100 MG CAP PO SCH ×2 (08:36→20:28)
[2020-11-07] MEDS: SIMVASTATIN 10 MG TAB PO SCH (08:37)
[2020-11-07] MEDS: ENALAPRIL MALEATE 5 MG TAB PO SCH (08:37)
[2020-11-07] MEDS: FINASTERIDE 5 MG TAB PO SCH (08:37)
[2020-11-07] MEDS: TAMSULOSIN HCL 0.4 MG CAP PO SCH (08:38)
[2020-11-07] MEDS: METOPROLOL SUCC 25MG EXT REL TAB PO SCH (08:39)
[2020-11-07] MEDS: OMEGA-3 (PURIFIED FISH OIL) 1 GM CAP PO SCH (08:39)
[2020-11-07] MEDS: ASPIRIN 325 MG ECTAB PO SCH (08:39)
[2020-11-07] MEDS ORDERED: FUROSEMIDE 40 MG in SYRINGE 0 ML IV ONE (10:45)
[2020-11-07] MEDS: CEROVITE ADV FORMULA TAB PO SCH (11:58)
--- NOTE | 2020-11-07 15:29 | Hospitalist Progress Note ---
Date of Service November 07, 2020 Assessment & Plan (1) Pleural effusion: Likely secondary to congestive heart failure Management is as below Discussed with the ladle patcher He has been in will not diuretics No plan to repeat paracentesis during this admission He will be discharged on oral diuretic with a follow-up with pulmonary service in 1 to 2 weeks (2) Hypoxia: (3) COPD (chronic obstructive pulmonary disease): (4) CAD (coronary artery disease): (5) HTN (hypertension): (6) CKD (chronic kidney disease), stage III: (7) History of DVT (deep vein thrombosis): Hypoxia R pleural effusion L Loculated effusion small Possible CAP - L COPD An 89yo M with a PMH of CAD s/p CABG, HTN, HLD, carotid artery stenosis status post right endarterectomy, COPD, history of tobacco abuse, CKD stage III, thrombocytopenia 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 Last hospitalized 09/27-09/29 with similar presentation. Had thoracentesis 950 mL removed. It was transudate of effusion with negative cytology. Saw pulmonology 10/22, thought possible heart failure component. Echocardiogram done 10/12 revealed EF WNL, severe mitral annular calcification, mild MR and mildly dilated ascending aorta He likely has acute on chronic diastolic heart failure Has been receiving intravenous furosemide since admission Appreciate pulmonary input and recommendation He has been improving a lot clinically Plan for possible thoracentesis tomorrow if there is no improvement of effusion He does not want to have thoracentesis and wants to avoid it if possible Clinically has been much better Has been getting intravenous Lasix as of today abdominal change to oral Lasix on discharge possibly tomorrow We will check chest x-ray tomorrow Hypertensive crisis pt presents with acute onset hypertension after a week of Low bps Associated with shortness of breath,orthopnea and lightheadedness Treated with IV labetolol 10mg x 2 and nitropaste, BP 170s/110 Lasix 40mg IV ordered Resume home enalapril and metoprolol Blood pressure is controlled this morning Lightheadedness for 1-2 weeks pt c/o dizziness after breakfast, enalapril held b/c of this but no improvement monitor closely CAD Carotid artery stenosis s/p R CEA H/o CABG. No chest pain or acute EKG changes. Continue beta bre, statin No cardiac symptoms Noted to have a few beats of V. tach but EKG did not show any ectopy and his electrolytes are normal CKD III Kidney function at baseline. Baseline Cr 1.3 Continue monitoring with daily BMP Has been receiving intravenous furosemide Will monitor PRP and electrolytes-creatinine remains stable at 1.32 Soft tissue nodule on CTA chest Noted on CT scan during most recent admission, evident again today Following outpt pulm, to have repeat CT in 5 months CTA chest with a "3.1 x 2.1 cm oval-shaped soft tissue nodule which appears to be located within the posterior mediastinum adjacent to the esophagus. This could also be located within the adjacent medial aspect of the right lower lobe. This could represent an enlarged lymph node, posterior mediastinal lesion, or possibly a right lower lobe lesion" He will need to have an outpatient CT in about 5 months DVT Ppx: SCD/TEDS for now in event require thoracentesis, monitor daily need for chemical prophylaxis Code status: FULL PCP: Trevor Dispo: Admit to PCU. Discharge planning ordered. Likely discharge tomorrow We will get PT and OT evaluation Admission and Anticipated Discharge Date Admission Date: November 05, 2020 Subjective 11/06/2020 The patient was seen and examined in telemetry unit He is very hard of hearing but has been feeling much better as of today Denies any more shortness of breath, chest heaviness or any nausea and or vomiting 11/07/2020 The patient was seen and examined in the telemetry unit He has been feeling a lot better and denies any shortness of breath or chest heaviness He denies any other symptoms He will have PT and OT evaluation Possible discharge tomorrow Review of Systems Review of Systems: All systems reviewed and are unremarkable except as noted below Physical Exam Physical Exam: Lying in bed comfortably Constitutional: well developed and well nourished; no acute distress and not ill appearing Eyes: PERRL, conjunctivae normal, anicteric sclerae ENMT: external ear and nose normal, oropharynx normal Neck: trachea midline, no thyromegaly Respiratory: no respiratory distress Auscultation: + diminished lung sounds (More on the right base than the left) and + crackles (Minimal crackles bibasilarly) Cardiovascular: Rate/Rhythm: regular rate and regular rhythm Heart Sounds: no murmur Extremities: + edema (Trace edema bilaterally) Gastrointestinal (Abdomen): Inspection/Auscultation: normal bowel sounds; abdomen not distended Percussion/Palpation: abdomen soft; abdomen nontender Musculoskeletal: No acute arthritis in any joint Neurologic: Alert, awake and oriented x3, is very deaf, generally weak but no focal weakness Psychiatric: A+Ox3, euthymic affect Lymphatic: no cervical or axillary lymphadenopathy Results & Data Results & Data ([facility]) Vital Signs (Past 12 Hours) Vital Signs Temp Pulse Pulse Resp BP Pulse Ox 11/07/20 14:00 86 11/07/20 11:15 95 11/07/20 11:13 36.3 C L 85 19 120/76 95 11/07/20 08:00 91 H 11/07/20 07:29 36.6 C 91 H 19 164/90 H 95 11/07/20 04:29 36.5 C 88 21 151/95 H 93 Laboratory Results BMP 11/07/20 05:19 Sodium 140 Potassium 3.9 D Chloride 103 Carbon Dioxide 33 H BUN 35 H Creatinine 1.32 Glucose 77 Calcium 9.0 Medications Administered Current Inpatient Medications Acetaminophen (Acetaminophen 325 Mg Tab) 650 mg PO Q4H PRN PRN Reason: Pain or Fever Stop: 12/05/20 13:43 Last Admin: 11/07/20 05:06 Dose: 650 mg Documented by: Al Hydrox/Mg Hydrox/Simethicone (Aluminum/Magnesium Susp 30 Ml Udc) 15 ml PO Q4H PRN PRN Reason: Dyspepsia Stop: 12/05/20 13:43 Albuterol (Albut/Ipratrop 3mg/0.5mg Neb 3 Ml Vial) 3 ml NEB QIDR PRN PRN Reason: Shortness Of Breath Or Wheezin Stop: 12/05/20 14:59 Allopurinol (Allopurinol 100 Mg Tab) 100 mg PO [facility] Stop: 12/06/20 08:59 Last Admin: 11/07/20 08:36 Dose: 100 mg Documented by: Aspirin (Aspirin 325 Mg Ectab) 325 mg PO [facility] Stop: 12/06/20 08:59 Last Admin: 11/07/20 08:39 Dose: Not Given Documented by: Enalapril Maleate (Enalapril Maleate 5 Mg Tab) 5 mg PO [facility] Stop: 12/06/20 08:59 Last Admin: 11/07/20 08:37 Dose: 5 mg Documented by: Finasteride (Finasteride 5 Mg Tab) 5 mg PO DAILY [facility] Stop: 12/06/20 08:59 Last Admin: 11/07/20 08:37 Dose: 5 mg Documented by: Fish Oil ([place]-3 (Purified Fish Oil) 1 Gm Cap) 1 gm PO QAM [facility] Stop: 12/06/20 08:59 Last Admin: 11/07/20 08:39 Dose: 1 gm Documented by: Gabapentin (Gabapentin 100 Mg Cap) 100 mg PO BID [facility] Stop: 12/05/20 20:59 Last Admin: 11/07/20 08:36 Dose: 100 mg Documented by: Heparin Sodium (Porcine) (Heparin Sod 5,000 Unit/0.5 Ml Vial) 5,000 units SQ Q8 [facility] Stop: 12/05/20 13:59 Last Admin: 11/07/20 14:39 Dose: 5,000 units Documented by: Magnesium Hydroxide (Magnesium Hydroxide Susp 30 Ml Udc) 30 ml PO Q12H PRN PRN Reason: Constipation Stop: 12/05/20 13:43 Metoprolol Succinate (Metoprolol Succ 25mg Ext Rel Tab) 25 mg PO DAILY [facility] Stop: 12/06/20 08:59 Last Admin: 11/07/20 08:39 Dose: 25 mg Documented by: Multivitamins/Minerals (Cerovite Adv Formula Tab) 1 tab PO QDL [facility] Stop: 12/06/20 11:29 Last Admin: 11/07/20 11:58 Dose: 1 tab Documented by: Ondansetron HCl (Ondansetron Inj 2 Mg/Ml 2 Ml Vial) 4 mg IV Q6H PRN PRN Reason: Nausea Stop: 12/05/20 13:43 Polyethylene Glycol (Polyethylene (Miralax) 17 Gm Pack) 17 gm PO DAILY PRN PRN Reason: Constipation Stop: 12/05/20 13:43 Simvastatin (Simvastatin 10 Mg Tab) 10 mg PO DAILY [facility] Stop: 12/06/20 08:59 Last Admin: 11/07/20 08:37 Dose: 10 mg Documented by: Tamsulosin HCl (Tamsulosin Hcl 0.4 Mg Cap) 0.4 mg PO DAILY [facility] Stop: 12/06/20 08:59 Last Admin: 11/07/20 08:38 Dose: 0.4 mg Documented by: Umeclidinium Scott (Umeclidinium Scott 62.5mcg/Blister 7 Puffs/Inhaler) 1 puffs INH QPM [facility] Stop: 12/05/20 20:59 Last Admin: 11/06/20 20:45 Dose: 1 puffs Documented by:
--- NOTE | 2020-11-07 16:30 | Pulmonology Progress Note ---
Date of Service November 07, 2020 Assessment & Plan (1) Hypoxia: 89-year-old male with a past medical history of coronary artery disease, hypertension, COPD and tobacco abuse presenting to the hospital due to shortness of breath. He was found to be in hypertensive urgency. Likely et iology of shortness of breath and acute hypoxemic respiratory failure is exacerbation of underlying diastolic heart failure. Continues to have clinical improvement with IV diuretics. Recommend transition to oral diuretics as his creatinine started to increase. We will hold off on thoracentesis at this time as the patient is clinically improved. Patient is agreeable to this plan and would prefer to avoid thoracentesis unless absolutely necessary. Of note, his prior right-sided pleural effusion did appear to be a transudate, however, there was a lymphocytic predominance of unclear etiology. The right lower lobe infiltrate is likely secondary to compressive atelectasis from the pleural effusion. Incentive spirometry is ordered. Patient does not appear to be in a COPD exacerbation at this time. Patient's and son's questions answered to their satisfaction. Please call with questions. We will sign off at this time. Thank you for the consult. (2) SOB (shortness of breath): (3) Pleural effusion: (4) Hypertensive urgency: (5) Abnormal chest CT: (6) Compressive atelectasis: Admission and Anticipated Discharge Date Admission Date: November 05, 2020 Subjective Patient is laying in bed today and denies any shortness of breath. He has nasal cannula in place. No chest pain, fevers or chills. No significant leg edema. Son is at bedside. Review of Systems Review of Systems: All systems reviewed & are unremarkable except as noted in HPI & below Physical Exam Constitutional: Elderly-appearing male in no apparent distress. Nasal cannula in place. Eyes: PERRL, conjunctivae normal, anicteric sclerae ENMT: external ear and nose normal, oropharynx normal Respiratory: Decreased lung sounds bilaterally. Diminished on the right base. Cardiovascular: Rate/Rhythm: regular rate and regular rhythm Heart Sounds: normal S1 and normal S2 Mild crackles at the left lung base. Right sounds clear today. Gastrointestinal (Abdomen): normal bowel sounds, soft, nontender, no hepatosplenomegaly Musculoskeletal: no cyanosis or clubbing, extremities motor strength 5/5 Skin: no rashes, warm and dry Neurologic: PERRL, EOMI, accommodation nl, no face palsy, no dysarthria Psychiatric: A+Ox3, euthymic affect Results & Data Results & Data ([facility]) Vital Signs (Past 12 Hours) Vital Signs Temp Pulse Pulse Resp BP Pulse Ox 11/07/20 15:32 97.9 F 87 17 150/86 H 93 11/07/20 14:00 86 11/07/20 11:15 95 11/07/20 11:13 97.3 F L 85 19 120/76 95 11/07/20 08:00 91 H 11/07/20 07:29 97.9 F 91 H 19 164/90 H 95 11/07/20 04:29 97.7 F 88 21 151/95 H 93 I reviewed the vital signs, labs and imaging PG Care Time/CCT Total # of Minutes Spent Total Time Spent with Patient: Total time spent is greater than 50% in coordination of care (as documented) at patient's floor/unit and/or counseling patient: Coding Level of Care Code 48399 Subseq Hosp Care Lvl 3 Diagnoses Hypoxia R09.02 SOB (shortness of breath) R06.02 Pleural effusion J90 Hypertensive urgency I16.[address] R93.89 Compressive atelectasis J98.11
[2020-11-07] MEDS: UMECLIDINIUM BROMIDE 62.5MCG/BLISTER 7 PUFFS/INHALER INH SCH (20:29)
[2020-11-08] MEDS: HEPARIN SOD 5,000 UNIT/0.5 ML VIAL SQ SCH ×2 (06:07→14:35)
--- NOTE | 2020-11-08 07:12 | Electrocardiogram Report ---
Test Reason : Blood Pressure : / mmHG Vent. 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 lead placement vs. LVH Abnormal ECG When compared with ECG of 05-NOV-2020 09:20, No significant change was found Confirmed by Rowdy Mason ([id number]) on 11/08/2020 7:11:46 AM Referred By: REFERRED SELF Confirmed By:Rowdy Mason
[2020-11-08 07:20] LABS: Hematocrit (blood only) 45.4 % (42-52); Hemoglobin 14.8 g/dL (14.0-18.0); Mean Corpuscular Hemoglobin 32.8 pg (25-34); Mean Corpuscular Hgb Conc 32.6 g/dL (32-36); Mean Corpuscular Volume 100.7 fL (80-100); Platelet Count 104 K/uL (130-400); RDW Coefficient of Variation 14.8 % (11.5-14.5); RDW Standard Deviation 53.9 fL (36.4-46.3); Red Blood Count 4.51 M/uL (4.7-6.1); White Blood Count 4.87 K/uL (4.8-10.8)
[2020-11-08 07:24] LABS: BUN Creatinine Ratio 29.1 (10-20); Creatinine Clr Calc Pharmacy 48.8 ml/min; Est GFR (African American) 67.1; Est GFR (Non-African American) 57.9; Magnesium 2.2 mg/dl (1.8-2.4); Phosphorus 3.3 mg/dl (2.5-4.9); Potassium 3.9 mmol/L (3.5-5.1)
[2020-11-08 07:26] LABS: Basophils # (auto) 0.03 K/uL (0-0.2); Basophils % (auto) 0.6 %; Eosinophils # (auto) 0.22 K/uL (0-0.5); Eosinophils % (auto) 4.5 %; Immature Granulocytes # (auto) 0.01 K/uL (0.00-0.02); Immature Granulocytes % (auto) 0.2 %; Lymphocytes # (auto) 0.66 K/uL (1.2-3.4); Lymphocytes % (auto) 13.6 %; Monocytes # (auto) 0.76 K/uL (0.11-0.59); Monocytes % (auto) 15.6 %; Neutrophils # (auto) 3.19 K/uL (1.4-6.5); Neutrophils % (auto) 65.5 %
[2020-11-08] MEDS: METOPROLOL SUCC 25MG EXT REL TAB PO SCH (08:08)
[2020-11-08] MEDS: allopurinoL 100 MG TAB PO SCH (08:08)
[2020-11-08] MEDS: GABAPENTIN 100 MG CAP PO SCH (08:08)
[2020-11-08] MEDS: FINASTERIDE 5 MG TAB PO SCH (08:08)
[2020-11-08] MEDS: ASPIRIN 325 MG ECTAB PO SCH (08:09)
[2020-11-08] MEDS: SIMVASTATIN 10 MG TAB PO SCH (08:09)
[2020-11-08] MEDS: TAMSULOSIN HCL 0.4 MG CAP PO SCH (08:09)
[2020-11-08] MEDS: OMEGA-3 (PURIFIED FISH OIL) 1 GM CAP PO SCH (08:09)
[2020-11-08] MEDS: ENALAPRIL MALEATE 5 MG TAB PO SCH (08:09)
--- NOTE | 2020-11-08 09:26 | XRay Report ---
XR chest 2V PA/lateral HISTORY: Pleural effusion COMPARISON: Chest 11/06/2020. FINDINGS: No pneumothorax. No significant change in the small bilateral pleural effusions, right grea ter than left. Bibasilar linear densities also persist and favor subsegmental atelectasis. There are poststernotomy changes. The cardiac silhouette remains borderline enlarged. Upper lung zones are storm r. Probable gallstones. IMPRESSION: No change in the small bilateral pleural effusions and bibasilar densities, right greater than left. ACT 112: Negative or not required by law. Electronically signed by: Marlon Hwang M.D. 11/08/2020 9:25 AM
--- NOTE | 2020-11-08 10:56 | Hospitalist Progress Note ---
Date of Service November 08, 2020 Assessment & Plan (1) Pleural effusion: Likely secondary to congestive heart failure Management is as below Discussed with the coding compliance specialist He has been in will not diuretics No plan to repeat paracentesis during this admission He will be discharged on oral diuretic with a follow-up with pulmonary service in 1 to 2 weeks Repeat chest x-ray this morning showed much improvement of effusions We will continue with oral diuretics He will be discharged this afternoon (2) Hypoxia: (3) COPD (chronic obstructive pulmonary disease): (4) CAD (coronary artery disease): (5) HTN (hypertension): (6) CKD (chronic kidney disease), stage III: (7) History of DVT (deep vein thrombosis): Hypoxia R pleural effusion L Loculated effusion small Possible CAP - L COPD An 89yo M with a PMH of CAD s/p CABG, HTN, HLD, carotid artery stenosis status post right endarterectomy, COPD, history of tobacco abuse, CKD stage III, thrombocytopenia 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 Last hospitalized 09/27-09/29 with similar presentation. Had thoracentesis 950 mL removed. It was transudate of effusion with negative cytology. Saw pulmonology 10/22, thought possible heart failure component. Echocardiogram done 10/12 revealed EF WNL, severe mitral annular calcification, mild MR and mildly dilated ascending aorta He likely has acute on chronic diastolic heart failure Has been receiving intravenous furosemide since admission Appreciate pulmonary input and recommendation He has been improving a lot clinically Plan for possible thoracentesis tomorrow if there is no improvement of effusion He does not want to have thoracentesis and wants to avoid it if possible Clinically has been much better Has been getting intravenous Lasix as of today abdominal change to oral Lasix on discharge possibly tomorrow We will check chest x-ray tomorrow-no CHF Will give oral Lasix to go home Hypertensive crisis pt presents with acute onset hypertension after a week of Low bps Associated with shortness of breath,orthopnea and lightheadedness Treated with IV labetolol 10mg x 2 and nitropaste, BP 170s/110 Lasix 40mg IV ordered Resume home enalapril and metoprolol Blood pressure is controlled this morning Blood pressure remains on the upper side of normal We will continue his home medication Lightheadedness for 1-2 weeks pt c/o dizziness after breakfast, enalapril held b/c of this but no improvement monitor closely CAD Carotid artery stenosis s/p R CEA H/o CABG. No chest pain or acute EKG changes. Continue beta bre, statin No cardiac symptoms Noted to have a few beats of V. tach but EKG did not show any ectopy and his electrolytes are normal CKD III Kidney function at baseline. Baseline Cr 1.3 Continue monitoring with daily BMP Has been receiving intravenous furosemide Will monitor PRP and electrolytes-creatinine remains stable at 1.32 Creatinine remains stable Soft tissue nodule on CTA chest Noted on CT scan during most recent admission, evident again today Following outpt pulm, to have repeat CT in 5 months CTA chest with a "3.1 x 2.1 cm oval-shaped soft tissue nodule which appears to be located within the posterior mediastinum adjacent to the esophagus. This could also be located within the adjacent medial aspect of the right lower lobe. This could represent an enlarged lymph node, posterior mediastinal lesion, or possibly a right lower lobe lesion" He will need to have an outpatient CT in about 5 months DVT Ppx: SCD/TEDS for now in event require thoracentesis, monitor daily need for chemical prophylaxis Code status: FULL PCP: Trevor Dispo: Admit to PCU. Discharge planning ordered. Likely discharge tomorrow Has been ambulating in the room without any difficulties Will be discharged home this afternoon Admission and Anticipated Discharge Date Admission Date: November 05, 2020 Subjective 11/06/2020 The patient was seen and examined in telemetry unit He is very hard of hearing but has been feeling much better as of today Denies any more shortness of breath, chest heaviness or any nausea and or vomiting 11/07/2020 The patient was seen and examined in the telemetry unit He has been feeling a lot better and denies any shortness of breath or chest heaviness He denies any other symptoms He will have PT and OT evaluation Possible discharge tomorrow 11/08/2020 The patient was seen and examined in telemetry unit He has been feeling a lot better and denies any shortness of breath or any other symptoms His chest x-ray did show much improvement of pleural effusions Will be discharged home this afternoon Review of Systems Review of Systems: All systems reviewed and are unremarkable except as noted below Respiratory: no cough and no dyspnea Cardiovascular: no chest pain, no dyspnea on exertion and no palpitations Physical Exam Physical Exam: Lying in bed comfortably Constitutional: well developed and well nourished; no acute distress and not ill appearing Eyes: PERRL, conjunctivae normal, anicteric sclerae ENMT: external ear and nose normal, oropharynx normal Neck: trachea midline, no thyromegaly Respiratory: no respiratory distress Auscultation: + diminished lung sounds (At the bases more on the right than the left. Improved) Cardiovascular: Rate/Rhythm: regular rate and regular rhythm Heart Sounds: no murmur Extremities: + edema (Trace edema bilaterally) Gastrointestinal (Abdomen): Inspection/Auscultation: normal bowel sounds; abdomen not distended Percussion/Palpation: abdomen soft; abdomen nontender Musculoskeletal: No acute arthritis in any joint Neurologic: Alert, awake and oriented x3. No focal sensory and motor deficit appreciated Psychiatric: A+Ox3, euthymic affect Lymphatic: no cervical or axillary lymphadenopathy Results & Data Results & Data ([facility]) Vital Signs (Past 12 Hours) Vital Signs Temp Pulse Pulse Resp BP Pulse Ox 11/08/20 08:00 85 11/08/20 06:59 36.6 C 84 18 148/83 H 92 11/08/20 03:03 36.5 C 90 20 147/85 H 11/08/20 01:00 88 11/07/20 23:43 36.4 C L 82 18 86/49 L 93 Laboratory Results Short CBC 11/08/20 Range/Units 06:55 WBC 4.87 (4.8-10.8) K/uL Hgb 14.8 (14.0-18.0) g/dL Hct 45.4 (42-52) % Plt Count 104 L (130-400) K/uL BMP 11/08/20 06:55 Sodium 140 Potassium 3.9 Chloride 104 Carbon Dioxide 33 H BUN 33 H Creatinine 1.12 Glucose 80 Calcium 9.0 Medications Administered Current Inpatient Medications Acetaminophen (Acetaminophen 325 Mg Tab) 650 mg PO Q4H PRN PRN Reason: Pain or Fever Stop: 12/05/20 13:43 Last Admin: 11/07/20 05:06 Dose: 650 mg Documented by: Al Hydrox/Mg Hydrox/Simethicone (Aluminum/Magnesium Susp 30 Ml Udc) 15 ml PO Q4H PRN PRN Reason: Dyspepsia Stop: 12/05/20 13:43 Albuterol (Albut/Ipratrop 3mg/0.5mg Neb 3 Ml Vial) 3 ml NEB QIDR PRN PRN Reason: Shortness Of Breath Or Wheezin Stop: 12/05/20 14:59 Allopurinol (Allopurinol 100 Mg Tab) 100 mg PO QAM [facility] Stop: 12/06/20 08:59 Last Admin: 11/08/20 08:08 Dose: 100 mg Documented by: Aspirin (Aspirin 325 Mg Ectab) 325 mg PO QAM [facility] Stop: 12/06/20 08:59 Last Admin: 11/08/20 08:09 Dose: 325 mg Documented by: Enalapril Maleate (Enalapril Maleate 5 Mg Tab) 5 mg PO QAM [facility] Stop: 12/06/20 08:59 Last Admin: 11/08/20 08:09 Dose: 5 mg Documented by: Finasteride (Finasteride 5 Mg Tab) 5 mg PO DAILY [facility] Stop: 12/06/20 08:59 Last Admin: 11/08/20 08:08 Dose: 5 mg Documented by: Fish Oil ([place]-3 (Purified Fish Oil) 1 Gm Cap) 1 gm PO QAM [facility] Stop: 12/06/20 08:59 Last Admin: 11/08/20 08:09 Dose: 1 gm Documented by: Gabapentin (Gabapentin 100 Mg Cap) 100 mg PO BID [facility] Stop: 12/05/20 20:59 Last Admin: 11/08/20 08:08 Dose: 100 mg Documented by: Heparin Sodium (Porcine) (Heparin Sod 5,000 Unit/0.5 Ml Vial) 5,000 units SQ Q8 [facility] Stop: 12/05/20 13:59 Last Admin: 11/08/20 06:07 Dose: 5,000 units Documented by: Magnesium Hydroxide (Magnesium Hydroxide Susp 30 Ml Udc) 30 ml PO Q12H PRN PRN Reason: Constipation Stop: 12/05/20 13:43 Metoprolol Succinate (Metoprolol Succ 25mg Ext Rel Tab) 25 mg PO DAILY [facility] Stop: 12/06/20 08:59 Last Admin: 11/08/20 08:08 Dose: 25 mg Documented by: Multivitamins/Minerals (Cerovite Adv Formula Tab) 1 tab PO QDL [facility] Stop: 12/06/20 11:29 Last Admin: 11/07/20 11:58 Dose: 1 tab Documented by: Ondansetron HCl (Ondansetron Inj 2 Mg/Ml 2 Ml Vial) 4 mg IV Q6H PRN PRN Reason: Nausea Stop: 12/05/20 13:43 Polyethylene Glycol (Polyethylene (Miralax) 17 Gm Pack) 17 gm PO DAILY PRN PRN Reason: Constipation Stop: 12/05/20 13:43 Simvastatin (Simvastatin 10 Mg Tab) 10 mg PO DAILY [facility] Stop: 12/06/20 08:59 Last Admin: 11/08/20 08:09 Dose: 10 mg Documented by: Tamsulosin HCl (Tamsulosin Hcl 0.4 Mg Cap) 0.4 mg PO DAILY [facility] Stop: 12/06/20 08:59 Last Admin: 11/08/20 08:09 Dose: 0.4 mg Documented by: Umeclidinium [place] (Umeclidinium [place] 62.5mcg/Blister 7 Puffs/Inhaler) 1 puffs INH QPM [facility] Stop: 12/05/20 20:59 Last Admin: 11/07/20 20:29 Dose: 1 puffs Documented by:
[2020-11-08] MEDS ORDERED: FUROSEMIDE 40 MG TAB PO ONE (11:44)
[2020-11-08] MEDS: CEROVITE ADV FORMULA TAB PO SCH (12:30)
[2020-11-08] MEDS ORDERED: METOPROLOL TARTRATE 25 MG TAB PO STA (14:04)
--- NOTE | 2020-11-09 07:21 | Discharge Summary ---
Date of Service November 09, 2020 Admission HPI Per Admitting Provider This is an 89yo M with a PMH of CAD s/p CABG, HTN, HLD, carotid artery stenosis status post right endarterectomy, COPD, history of tobacco abuse, CKD stage III, thrombocytopenia history of parotid gland cancer (s/p parotidectomy and radiation and other medical problems listed below who presents with shortness of breath x1 days. Of significance patient recently hospitalized 09/27 to 09/29/2020 secondary to acute hypoxic respiratory failure, right pleural effusion, loculated left pleural effusion and possible community-acquired pneumonia. He was seen and evaluated by pulmonology and underwent thoracentesis of right pleural effusion, 950 mL of serosanguineous fluid was removed. Effusion was transudate of per lights criteria. Pleural fluid:LDH 96, total protein 3.5, glucose 113, pH 7.37, Serum:LDH 210, total protein 6.6 and cytology was negative. He was treated empirically for community-acquired pneumonia although he remained afebrile, procalcitonin WNL. Post thoracentesis he was feeling much improved and followed up with pulmonology on 10/22/2020. At that time he had been doing well. Chest x-ray confirmed blunting of costophrenic angles and mild bilateral pleural effusion. At that time etiology of effusion unknown, possibly diastolic CHF. He was started on Incruse for his COPD. He presents today secondary to worsening shortness of breath x1 days. He complains of orthopnea. He further complains of AYALA which has been ongoing for several weeks. He does have a chronic dry cough which he feels is unchanged. First in the morning when he wakes up he does complain of chest tightness associated with the orthopnea. Symptoms improve after sitting in recliner for several minutes. He denies any fever, chills, sweats, dizziness, syncope, chest pain, URI symptoms, nausea, vomiting, abdominal pain, dysuria, melena or hematochezia. He has been having manager fleet dizziness for the past 1 to 2 weeks. It typically occurs after he eats his morning breakfast. Home health nurse has been monitoring his blood pressure which has been lower less than 100 systolically in the morning. His enalapril has been on hold for the past week. In ED patient was saturating 79% on room air requiring 3 L of oxygen to maintain normal saturation. He was significantly hypertensive. He required IV labetalol x2 as well as Nitropaste. Blood pressure at 1025 186/119. Lab work did not reveal significant leukocytosis, H&H was WNL, platelets stable at 106, CMP generally unremarkable. Chest x-ray revealed slight interval increase in size of bilateral pleural effusions right larger than left, progressive right basilar opacity with associated volume loss and interval development of left perihilar airspace opacity possibly representing a pneumonia. Admission Exam Per Admitting Provider Physical Exam: Constitutional: WD/WN, elderly, male, vitals as above, NAD, sitting up in bed, pleasant, conversing easily Head: Normocephalic, Atraumatic Eyes: PERRL, conjunctivae normal, anicteric sclerae ENMT: external ear and nose normal, oropharynx normal Neck: trachea midline, no thyromegaly normal visual inspection Respiratory: normal respiratory effort, lungs clear to auscultation, scant expiratory wheeze right midlung,no rales, rhonchi. Normal insp/exp effort, no accessory muscle use Cardiovascular: RRR, no murmur, no edema Vessels: no JVD or carotid bruit Chest: normal inspection of chest Abdomen: normal bowel sounds, soft, nontender, no hepatosplenomegaly Musculoskeletal: no cyanosis or clubbing, extremities motor strength 5/5 Skin: no rashes, warm and dry normal turgor Neurologic: PERRL, EOMI, accommodation nl, no face palsy, no dysarthria CN's II-XI intact bilaterally and moves all extremities Psychiatric: A+Ox3, euthymic affect Lymphatic: no cervical or axillary lymphadenopathy : deferred Principal Diagnosis Recurrent pleural effusion, acute on chronic diastolic heart failure, stable CAD, hypertensive crisis, chronic kidney disease,stable low-density 27 mm nodule within the posterior mediastinum adjacent to the esophagus-Needs follow up sukh ging study. Discharge Exam Constitutional well developed and well nourished; no acute distress and not ill appearing Eyes PERRL, conjunctivae normal, anicteric sclerae ENMT external ear and nose normal, oropharynx normal Neck trachea midline, no thyromegaly Respiratory no respiratory distress Auscultation: + diminished lung sounds (At the bases more on the right than the left. Improved) Cardiovascular Rate/Rhythm: regular rate and regular rhythm Heart Sounds: no murmur Extremities: + edema (Trace edema bilaterally) Gastrointestinal (Abdomen) Inspection/Auscultation: normal bowel sounds; abdomen not distended Percussion/Palpation: abdomen soft; abdomen nontender Psychiatric A+Ox3, euthymic affect Lymphatic no cervical or axillary lymphadenopathy Discharge Data Allergies Allergy/AdvReac Type Severity Reaction Status Date / Time No Known Allergies Allergy Unknown Verified 11/05/20 10:28 Consultations 11/05/20 12:01 ED Decision to Admit Stat 11/05/20 13:44 Consult Case Management - Discharge Planning Routine Consult Pulmonology Routine Ordered Studies 11/05/20 10:40 CT angio chest PE protocol Stat 11/06/20 07:26 US point of care ultrasound Urgent Hospital Course (1) Pleural effusion: Likely secondary to congestive heart failure Management is as below Discussed with the railway head tender He has been in will not diuretics No plan to repeat paracentesis during this admission He will be discharged on oral diuretic with a follow-up with pulmonary service in 1 to 2 weeks Repeat chest x-ray this morning showed much improvement of effusions We will continue with oral diuretics He will be discharged this afternoon (2) Hypoxia: (3) COPD (chronic obstructive pulmonary disease): (4) CAD (coronary artery disease): (5) HTN (hypertension): (6) CKD (chronic kidney disease), stage III: (7) History of DVT (deep vein thrombosis): Hypoxia R pleural effusion L Loculated effusion small Possible CAP - L COPD An 89yo M with a PMH of CAD s/p CABG, HTN, HLD, carotid artery stenosis status post right endarterectomy, COPD, history of tobacco abuse, CKD stage III, thrombocytopenia 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 Last hospitalized 09/27-09/29 with similar presentation. Had thoracentesis 950 mL removed. It was transudate of effusion with negative cytology. Saw pulmonology 10/22, thought possible heart failure component. Echocardiogram done 10/12 revealed EF WNL, severe mitral annular calcification, mild MR and mildly dilated ascending aorta He likely has acute on chronic diastolic heart failure Has been receiving intravenous furosemide since admission Appreciate pulmonary input and recommendation He has been improving a lot clinically Plan for possible thoracentesis tomorrow if there is no improvement of effusion He does not want to have thoracentesis and wants to avoid it if possible Clinically has been much better Has been getting intravenous Lasix as of today abdominal change to oral Lasix on discharge possibly tomorrow We will check chest x-ray tomorrow-no CHF Will give oral Lasix to go home Hypertensive crisis pt presents with acute onset hypertension after a week of Low bps Associated with shortness of breath,orthopnea and lightheadedness Treated with IV labetolol 10mg x 2 and nitropaste, BP 170s/110 Lasix 40mg IV ordered Resume home enalapril and metoprolol Blood pressure is controlled this morning Blood pressure remains on the upper side of normal We will continue his home medication Lightheadedness for 1-2 weeks pt c/o dizziness after breakfast, enalapril held b/c of this but no improvement monitor closely CAD Carotid artery stenosis s/p R CEA H/o CABG. No chest pain or acute EKG changes. Continue beta bre, statin No cardiac symptoms Noted to have a few beats of V. tach but EKG did not show any ectopy and his electrolytes are normal CKD III Kidney function at baseline. Baseline Cr 1.3 Continue monitoring with daily BMP Has been receiving intravenous furosemide Will monitor PRP and electrolytes-creatinine remains stable at 1.32 Creatinine remains stable Soft tissue nodule on CTA chest Noted on CT scan during most recent admission, evident again today Following outpt pulm, to have repeat CT in 5 months CTA chest with a "3.1 x 2.1 cm oval-shaped soft tissue nodule which appears to be located within the posterior mediastinum adjacent to the esophagus. This could also be located within the adjacent medial aspect of the right lower lobe. This could represent an enlarged lymph node, posterior mediastinal lesion, or possibly a right lower lobe lesion" He will need to have an outpatient CT in about 5 months DVT Ppx: SCD/TEDS for now in event require thoracentesis, monitor daily need for chemical prophylaxis Code status: FULL PCP: Trevor Dispo: Admit to PCU. Discharge planning ordered. Likely discharge tomorrow Has been ambulating in the room without any difficulties Will be discharged home this afternoon Total Time Total Time Spent Total Time Spent (In Minutes): 35 minutes Total Time Includes: Examination of the Patient, Discharge Planning, Medication Reconciliation and Communication With Other Providers Discharge Plan Discharge Items Patient Disposition: Home - Self-Care Reason For Visit: Hypoxia, Pleural effusion Discharge Diagnosis: Recurrent pleural effusion, acute on chronic diastolic heart failure, stable CAD, hypertensive crisis, chronic kidney disease,stable low-density 27 mm nodule within the posterior mediastinum adjacent to the esophagus-Needs follow up imaging study. Condition on Discharge: Good Activity: Resume your previous activity Non-emergency contact: Primary Care Provider Call non-emergency contact if: you have any medication questions and your symptoms worsen Follow-up/Referrals: Pritesh Murray DO [Primary Care Provider] - 11/13/20 11:20 am (Date & Time 11/13/2020 11:20 AM Provider Dominik Gates MD Department General Internal Medicine [facility] ) Diet: Gluten Free and Low Sodium (2gm) Addtl Attending Provider Instructions: Please take precaution to avoid falls Please take medications as advised and keep follow-up appointments with your providers You have 2 new medications were given-furosemide 40 mg a day and enalapril 5 mg a day Your Toprol-XL was increased to 50 mg Pending Studies at Discharge: No Stand-Alone Forms: [facility] [employer], Smoking Cessation Medications and DC Order Prescriptions: New enalapril maleate 5 mg Tablet 5 mg PO QAM Qty: 30 RF: 0 furosemide 40 mg Tablet 40 mg PO QAM Qty: 30 RF: 0 metoprolol succinate [Toprol XL] 50 mg tablet extended release 24 hr 50 mg PO DAILY Qty: 30 RF: 0 Continued simvastatin 10 mg tablet 10 mg PO DAILY RF: 0 allopurinol 100 mg tablet 100 mg PO QAM RF: 0 tamsulosin 0.4 mg capsule 0.4 mg PO DAILY RF: 0 aspirin 325 mg Tablet 325 mg PO QAM RF: 0 PreserVision AREDS [id number] Capsule 1 cap PO BID RF: 0 gabapentin 100 mg capsule 100 mg PO BID RF: 0 finasteride 5 mg tablet 5 mg PO DAILY RF: 0 Incruse Ellipta 62.5 mcg/actuation blister with device 1 inh inhalation QPM RF: 0 [id number] Tablet 1 tab PO QAM RF: 0 omega-3 fatty acids-fish oil [Fish Oil] 360-1,200 mg Capsule 1 cap PO QAM RF: 0 Changed metoprolol succinate 25 mg tablet extended release 24 hr 50 mg PO DAILY Qty: 0 RF: 0 Discharge Orders: Discharge Order (Routine); Ordered 11/08/20 Ordered By: Tano Houser Admission Data Admit Date/Time: 11/05/20 12:12 Attending Provider: Tano Houser Admit Provider: Tano Houser Primary Care Provider: Pritesh Murray Other Providers: Tano Houser ; Josue Jauregui ; [facility] Other Interventions: Discharge Summary Assessment (RN) Last Done: 11/08/20 14:08
[2020-11-09] MEDS ORDERED: FUROSEMIDE 40 MG TAB PO SCH (09:00)
--- NOTE | 2020-11-13 10:02 | Coding Query ---
CODING QUERY To promote full compliance with coding requirements relating to patient care, provider participation is requested in all cases of geospatial program management officer uncertainty. Please assist us with the question(s) below: Coding Question(s): Per documentation, patient with "Possible CAP." Per Pulmonary Consult, "symptoms are not consistent with pneumonia. The right lower lob infiltrate is likely secondary to compressive atelectasis from the pleural effusion." "Possible CAP" is documented throughout rest of chart. Please clarify below: ( ) Patient still had Possible CAP ( +) CAP Ruled Out ( ) Other Please Explain: Thank you Darrel Ozuna Principal Diagnosis: "that condition established after study, to be chiefly responsible for occasioning the admission of the patient to the hospital for care." Co-Existing Principal Diagnosis: "when two or more diagnoses equally meet the criteria for principal diagnosis as determined by the circumstances of admission, diagnostic work up, and/or therapy provided, and the Alphabetic Index, Tabular List, or another coding guideline does not provide sequencing direction, any one of the diagnoses may be sequenced first." "When the physician has documented what appears to be a current diagnosis in the body of the record, but has not included the diagnosis in the final diagnostic statement, the physician should be asked whether the diagnosis should be added." (Source Coding Clinic 2 QTR90. p3-4) [facility]
== END 2020-11-08 15:10 | disposition home health service (06) | DRG 291 ==
LOC: ED 09:08 → 2S 12:12

== ENCOUNTER 2020-12-25 16:56 | Inpatient (IN) ==
--- NOTE | 2020-12-25 17:36 | XRay Report ---
XR chest 1V portable CLINICAL HISTORY: Abdominal pain. COMPARISON STUDY: Chest radiograph December 10, 2020. FINDINGS: There are median sternotomy wires. No pneumothorax is present. Cardiomegaly is noted withou t evidence for pulmonary edema. Small right and trace left pleural effusions persist. Right basilar o pacity has slightly increased. IMPRESSION: 1. Small right pleural effusion with right basilar opacity, increased since prior exam. This could re flect consolidation or atelectasis. Radiographic follow-up is recommended. 2. Trace left pleural effusion. ACT 112: Negative or not required by law. Electronically signed by: Omero Reno M.D. 12/25/2020 5:34 PM
--- NOTE | 2020-12-25 17:41 | Emergency Department Note ---
History of Present Illness General Chief Complaint: GI Assessment Stated Complaint: TIGHTNESS IN STOMACH, STOMACH BLOATING Time Seen by Provider: 12/25/20 17:07 History of Present Illness Provider Complaint: abdominal pain Onset (ago): week(s) Pain Consistency: intermittent Location: diffuse Migration to: no migration Severity: mild Maximum Pain Intensity: 0 Quality: + other (bloating) Associated Symptoms: + constipation and + chest pain; no nausea, no vomiting, no diarrhea, no fever, no chills, no dysuria, no hematemesis, no hematochezia, no melena, no hematuria, no anorexia, no syncope, no headache, no neck pain, no back pain and no numbness Patient also reports decreased flatus. Patient reports he saw GI yesterday and did an outpatient x-ray but he does not have the results back. Home Medications Medication Instructions Recorded Confirmed Type PreserVision AREDS 1 cap PO BID 09/27/20 12/25/20 History allopurinol 100 mg PO QAM 09/27/20 12/25/20 History aspirin 325 mg PO QAM 09/27/20 12/25/20 History simvastatin 10 mg PO DAILY 09/27/20 12/25/20 History tamsulosin 0.4 mg PO DAILY 09/27/20 12/25/20 History Incruse Ellipta 1 inh INHALATION QPM 11/05/20 12/25/20 History finasteride 5 mg PO DAILY 11/05/20 12/25/20 History gabapentin 100 mg PO BID 11/05/20 12/25/20 History cpqwrzoyipzj-avqplwsu-jbgqjb 1 tab PO QAM 11/05/20 12/25/20 History omega-3 fatty acids-fish oil [Fish 1 cap PO QAM 11/05/20 12/25/20 History Oil] acetaminophen 500 mg PO Q6H PRN 12/25/20 12/25/20 History benzonatate 100 mg PO BID PRN 12/25/20 12/25/20 History furosemide 20 mg PO DAILY 12/25/20 12/25/20 History metoprolol succinate [Toprol XL] 50 mg PO DAILY 12/25/20 12/25/20 History nitroglycerin 0.4 mg SUBLINGUAL DAILY PRN 12/25/20 12/25/20 History omeprazole 20 mg PO DAILY 12/25/20 12/25/20 History polyethylene glycol 3350 [Miralax] 17 g PO DAILY 12/25/20 12/25/20 History simethicone 80 mg PO TID PRN 12/25/20 12/25/20 History Allergies Allergy/AdvReac Type Severity Reaction Status Date / Time No Known Allergies Allergy Unknown Verified 12/25/20 20:05 Past Med/Surg History Medical History CAD (coronary artery disease) Carotid stenosis CKD (chronic kidney disease), stage III Compressive atelectasis COPD (chronic obstructive pulmonary disease) History of DVT (deep vein thrombosis) History of malignant neoplasm of parotid gland HTN (hypertension) Surgical History History of coronary artery bypass graft History of right-sided carotid endarterectomy Hx of parotidectomy Family History Other Heart disease Social History Smoking Status: Never smoker Tobacco Type: Cigarettes, Pipe and Cigars Hx Alcohol Use: No Hx Substance Use: No Preferred Language: Finnish Communication Ability: Effective Casino Accountant Required: No Beliefs That Will Affect Care: None marital status: Current Living Situation: Spouse Current Living Situation Comment: Home with Feels Safe at Home: Yes Assistive Devices: Hearing Aid - Right Review of Systems A total of 10 systems reviewed and were otherwise negative Physical Exam Vital Signs: Vital Signs - 24 hr 12/25/20 17:02 12/25/20 18:38 12/25/20 18:48 Temperature 36.7 C Temperature Source Temporal Artery Sc an Pulse Rate 71 Pulse Rate [Left F rianna] 88 Pulse Rhythm [Left Finger] Pulse Strength [Le ft Finger] Respiratory Rate 18 28 H Respiratory Effort / Characteristics Non-Labored Non-Labored Sponta neous Respiratory Depth Normal Normal Respiratory Patter n Regular Regular Blood Pressure 143/88 H Blood Pressure [Ri ght Arm] 140/79 Blood Pressure Yue n 106 Blood Pressure Yue n [Right Arm] 99 Blood Pressure Pos ition [Right Arm] Lying Pulse Oximetry 97 87 L 99 Oxygen Delivery Me thod Room Air Room Air Nasal Cannula Oxygen Flow Rate 3 Sepsis Recent Feve r Within 48 Hours No Sepsis New/Unexpla ined Change in Men jorge Status No Sepsis Action Take n by Nursing No Action Required 12/25/20 21:00 Temperature Temperature Source Pulse Rate Pulse Rate [Left F rianna] 79 Pulse Rhythm [Left Finger] Regular Pulse Strength [Le ft Finger] Normal Respiratory Rate 16 Respiratory Effort / Characteristics Non-Labored Sponta neous Respiratory Depth Normal Respiratory Patter n Regular Blood Pressure Blood Pressure [Ri ght Arm] 172/99 H Blood Pressure Yue n Blood Pressure Yue n [Right Arm] 123 Blood Pressure Pos ition [Right Arm] Lying Pulse Oximetry 96 Oxygen Delivery Me thod Nasal Cannula Oxygen Flow Rate 2 Sepsis Recent Feve r Within 48 Hours Sepsis New/Unexpla ined Change in Men jorge Status Sepsis Action Take n by Nursing Physical Exam: Physical Exam GENERAL: He is oriented to person, place, and time. He appears well-developed and well-nourished. He does not appear distressed. HENT: Exam performed. - Head: Normocephalic and atraumatic. - Right Ear: External ear normal. No mastoid tenderness. - Left Ear: External ear normal. No mastoid tenderness. - Mouth/Throat: The oropharynx is clear and moist. No trismus in the jaw. No dental abscesses or uvula swelling. No oropharyngeal exudate or tonsillar abscesses. EYES: Conjunctivae and EOM are normal. Pupils are equal, round, and reactive to light. Right eye exhibits no discharge. Left eye exhibits no discharge. No scleral icterus. NECK: Normal range of motion. Neck supple. No JVD present. No spinous process tenderness present. No carotid bruit present. No rigidity. No tracheal deviation and normal range of motion present. No Brudzinski's sign and no Kernig's sign noted. CV: Normal rate, regular rhythm, normal heart sounds and intact distal pulses. There is no peripheral edema. Palpable radial pulses bue. PULM/CHEST: Effort normal and breath sounds normal. No respiratory distress. No stridor. He has no wheezes. He has no rales. - Chest Wall: He exhibits no tenderness. ABD: The abdomen is soft. Bowel sounds are normal. He has no distension. No mass is present. There is tenderness to palpation of the left lower quadrant. There is no rebound, no guarding, no Flanagan's sign and no tenderness at McBurney's point. Rovsig negative. MUSC/SKEL: Normal range of motion. There is no peripheral edema, tenderness or deformity. LYMPH: No cervical adenopathy. NEURO: He is alert and oriented to person, place, and time. He has normal strength. No cranial nerve deficit or sensory deficit. Coordination and gait normal. GCS eye subscore is 4. GCS verbal subscore is 5. GCS motor subscore is 6. Cerebellar tests wnl. SKIN: Skin is warm and dry. He is not diaphoretic. PSYCH: He has a normal mood and affect. Behavior is normal. Judgment and thought content normal. Course Course 170: The patient was evaluated in room A9. A complete history and physical exam was performed Cardiac monitoring: An order was placed for continuous cardiac monitoring. The monitor shows a rate of 80 with sinus rhythm 184: Nursing staff informs me that the patient became tachypneic and his oxygen saturation dropped to 87% on room air. Patient was placed on 2 L nasal cannula. Patient states he does not wear oxygen. We will add labs and conduct CT of the chest. We will plan on admitting the patient to the hospitalist team. Covid swab ordered. 1944: Vital signs stable on supplemental oxygen. CTA of the chest within normal limits. Patient will be admitted to the [facility] hospitalist team Dr. Fernadno notified. Administered Medications Discontinued Medications Ioversol (Optiray 300 100ml) 89 ml IV ONCE ONE Stop: 12/25/20 18:31 Last Admin: 12/25/20 18:31 Dose: 89 ml Documented by: [id number] Ioversol (Optiray 350 500ml) 68 ml IV ONCE ONE Stop: 12/25/20 19:12 Last Admin: 12/25/20 19:13 Dose: 68 ml Documented by: [id number] Methylprednisolone (Methylprednisolone 40 Mg/Ml Vial) 40 mg IV NOW STA Stop: 12/25/20 21:00 Last Admin: 12/25/20 21:11 Dose: 40 mg Documented by: [id number] Metoprolol Tartrate (Metoprolol Tartrate 1 Mg/Ml Vial) 2.5 mg IV NOW STA Stop: 12/25/20 21:26 Last Admin: 12/25/20 21:31 Dose: 2.5 mg Documented by: [id number] Medical Decision Making Laboratory Data Result diagrams: 12/25/20 17:22 12/25/20 17:22 Lab Results 12/25/20 12/25/20 12/25/20 Range/Units 17:22 17:22 17:22 WBC 5.43 (4.8-10.8) K/uL RBC 4.68 L (4.7-6.1) M/uL Hgb 15.4 (14.0-18.0) g/dL Hct 46.7 (42-52) % MCV 99.8 (80-100) fL MCH 32.9 (25-34) pg MCHC 33.0 (32-36) g/dL RDW Std Deviation 51.7 H (36.4-46.3) fL RDW Coeff of Hakeem 14.3 (11.5-14.5) % Plt Count 115 L (130-400) K/uL MPV 12.0 H (7.4-10.4) fL Immature Gran % (Auto) 0.0 % Neut % (Auto) 66.8 % Lymph % (Auto) 14.7 % Lyon % (Auto) 14.7 % Eos % (Auto) 2.9 % Baso % (Auto) 0.9 % Neut # (Auto) 3.62 (1.4-6.5) K/uL Lymph # (Auto) 0.80 L (1.2-3.4) K/uL Lyon # (Auto) 0.80 H (0.11-0.59) K/uL Eos # (Auto) 0.16 (0-0.5) K/uL Baso # (Auto) 0.05 (0-0.2) K/uL Immature Gran # (Auto) 0.00 (0.00-0.02) K/uL PT 11.5 (9.0-12.0) Seconds INR 1.1 (0.9-1.1) APTT 24.0 (21.0-31.0) Seconds PTT Ratio 0.9 VBG pH (7.36-7.41) VBG pCO2 (38-50) mmHg VBG pO2 mmHg VBG HCO3 mmol/L VBG O2 Saturation % VBG Base Excess mEq/L Barometric Pressure mm/Hg Sodium 138 (136-145) mmol/L Potassium 3.8 (3.5-5.1) mmol/L Chloride 102 (98-107) mmol/L Carbon Dioxide 31 (21-32) mmol/L Anion Gap 6.0 (3-11) BUN 20 H (7-18) mg/dl Creatinine 1.35 (0.6-1.4) mg/dl Est Cr Clr Drug Dosing 41.2 ml/min Est GFR ( Amer) 53.6 Est GFR (Non-Af Amer) 46.2 BUN/Creatinine Ratio 14.5 (10-20) Glucose 88 (70-99) mg/dl Calcium 9.1 (8.5-10.1) mg/dl Magnesium (1.8-2.4) mg/dl Total Bilirubin 0.6 (0.2-1) mg/dl Direct Bilirubin 0.2 (0-0.2) mg/dl AST 23 (15-37) U/L ALT 20 (12-78) U/L Alkaline Phosphatase 143 H (45-117) U/L Troponin I 0.028 (0-0.045) ng/ml NT-Pro-B Natriuret Pep 1674 (0-1800) pg/ml Total Protein 7.5 (6.4-8.2) gm/dl Albumin 3.4 (3.4-5.0) gm/dl Lipase 131 (73-393) U/L COVID-19 Eval Order SARS-CoV-2 (PCR) (Negative) Influenza Type A (PCR) (Neg) Influenza Type B (PCR) (Neg) RSV (RT-PCR) (Neg) 12/25/20 12/25/20 12/25/20 Range/Units 17:22 19:05 19:05 WBC (4.8-10.8) K/uL RBC (4.7-6.1) M/uL Hgb (14.0-18.0) g/dL Hct (42-52) % MCV (80-100) fL MCH (25-34) pg MCHC (32-36) g/dL RDW Std Deviation (36.4-46.3) fL RDW Coeff of Hakeem (11.5-14.5) % Plt Count (130-400) K/uL MPV (7.4-10.4) fL Immature Gran % (Auto) % Neut % (Auto) % Lymph % (Auto) % Lyon % (Auto) % Eos % (Auto) % Baso % (Auto) % Neut # (Auto) (1.4-6.5) K/uL Lymph # (Auto) (1.2-3.4) K/uL Lyon # (Auto) (0.11-0.59) K/uL Eos # (Auto) (0-0.5) K/uL Baso # (Auto) (0-0.2) K/uL Immature Gran # (Auto) (0.00-0.02) K/uL PT (9.0-12.0) Seconds INR (0.9-1.1) APTT (21.0-31.0) Seconds PTT Ratio VBG pH (7.36-7.41) VBG pCO2 (38-50) mmHg VBG pO2 mmHg VBG HCO3 mmol/L VBG O2 Saturation % VBG Base Excess mEq/L Barometric Pressure mm/Hg Sodium (136-145) mmol/L Potassium (3.5-5.1) mmol/L Chloride (98-107) mmol/L Carbon Dioxide (21-32) mmol/L Anion Gap (3-11) BUN (7-18) mg/dl Creatinine (0.6-1.4) mg/dl Est Cr Clr Drug Dosing ml/min Est GFR ( Amer) Est GFR (Non-Af Amer) BUN/Creatinine Ratio (10-20) Glucose (70-99) mg/dl Calcium (8.5-10.1) mg/dl Magnesium 2.0 (1.8-2.4) mg/dl Total Bilirubin (0.2-1) mg/dl Direct Bilirubin (0-0.2) mg/dl AST (15-37) U/L ALT (12-78) U/L Alkaline Phosphatase (45-117) U/L Troponin I (0-0.045) ng/ml NT-Pro-B Natriuret Pep (0-1800) pg/ml Total Protein (6.4-8.2) gm/dl Albumin (3.4-5.0) gm/dl Lipase (73-393) U/L COVID-19 Eval Order CovFluRsv at [facility] SARS-CoV-2 (PCR) NEGATIVE (Negative) Influenza Type A (PCR) Negative (Neg) Influenza Type B (PCR) Negative (Neg) RSV (RT-PCR) Negative (Neg) 12/25/20 Range/Units 19:45 WBC (4.8-10.8) K/uL RBC (4.7-6.1) M/uL Hgb (14.0-18.0) g/dL Hct (42-52) % MCV (80-100) fL MCH (25-34) pg MCHC (32-36) g/dL RDW Std Deviation (36.4-46.3) fL RDW Coeff of Hakeem (11.5-14.5) % Plt Count (130-400) K/uL MPV (7.4-10.4) fL Immature Gran % (Auto) % Neut % (Auto) % Lymph % (Auto) % Lyon % (Auto) % Eos % (Auto) % Baso % (Auto) % Neut # (Auto) (1.4-6.5) K/uL Lymph # (Auto) (1.2-3.4) K/uL Lyon # (Auto) (0.11-0.59) K/uL Eos # (Auto) (0-0.5) K/uL Baso # (Auto) (0-0.2) K/uL Immature Gran # (Auto) (0.00-0.02) K/uL PT (9.0-12.0) Seconds INR (0.9-1.1) APTT (21.0-31.0) Seconds PTT Ratio VBG pH 7.35 L (7.36-7.41) VBG pCO2 57 H (38-50) mmHg VBG pO2 32 mmHg VBG HCO3 31 mmol/L VBG O2 Saturation 62.5 % VBG Base Excess 3.4 mEq/L Barometric Pressure 731.0 mm/Hg Sodium (136-145) mmol/L Potassium (3.5-5.1) mmol/L Chloride (98-107) mmol/L Carbon Dioxide (21-32) mmol/L Anion Gap (3-11) BUN (7-18) mg/dl Creatinine (0.6-1.4) mg/dl Est Cr Clr Drug Dosing ml/min Est GFR ( Amer) Est GFR (Non-Af Amer) BUN/Creatinine Ratio (10-20) Glucose (70-99) mg/dl Calcium (8.5-10.1) mg/dl Magnesium (1.8-2.4) mg/dl Total Bilirubin (0.2-1) mg/dl Direct Bilirubin (0-0.2) mg/dl AST (15-37) U/L ALT (12-78) U/L Alkaline Phosphatase (45-117) U/L Troponin I (0-0.045) ng/ml NT-Pro-B Natriuret Pep (0-1800) pg/ml Total Protein (6.4-8.2) gm/dl Albumin (3.4-5.0) gm/dl Lipase (73-393) U/L COVID-19 Eval Order SARS-CoV-2 (PCR) (Negative) Influenza Type A (PCR) (Neg) Influenza Type B (PCR) (Neg) RSV (RT-PCR) (Neg) Imaging Data Radiologist's Impression: Chest X-Ray 12/25/20 17:08 XR chest 1V portable CLINICAL HISTORY: Abdominal pain. COMPARISON STUDY: Chest radiograph December 10, 2020. FINDINGS: There are median sternotomy wires. No pneumothorax is present. Cardiomegaly is noted without evidence for pulmonary edema. Small right and trac e left pleural effusions persist. Right basilar opacity has slightly increased. IMPRESSION: 1. Small right pleural effusion with right basilar opacity, increased since prior exam. This could reflect consolidation or atelectasis. Radiographic follow-up is recommended. 2. Trace left pleural effusion. ACT 112: Negative or not required by law. Electronically signed by: Omero Reno M.D. 12/25/2020 5:34 PM Abdomen/Pelvis CT 12/25/20 17:23 CT OF THE ABDOMEN AND PELVIS WITH CONTRAST CLINICAL HISTORY: Abdominal pain. COMPARISON STUDY: Right upper quadrant ultrasound June 10, 2011. TECHNIQUE: Following IV administration of 89 mL of Optiray, axial images of the abdomen and pelvis were obtained from the lung bases to the proximal femurs. I mages were reviewed in the axial, sagittal, and coronal planes. IV contrast was administered without complication. Automated exposure control was utilized for the study. A dose lowering technique was utilized adhering to the principles of ALARA. CT DOSE: 598.24 mGy.cm FINDINGS: A moderate right pleural effusion with right lower and middle lobe segmental atelectasis is partially imaged on this examination. No pneumatosis, free air or portal venous gas is present. Lateral segment hepatic lesion favors a cyst. There are gallstones within the gallbladder. There is no evidence for acute cholecystitis. There is no biliary or pancreatic ductal dilatation. There is no peripancreatic or pericholecystic infiltration. There is moderate bilateral renal thinning. There is no hydronephrosis. Several renal cysts are noted. There are multiple subcentimeter renal lesions which are too small to characterize. Prominence of the left renal pelvis is noted. This suggest an extrarenal pelvis. Prostate is enlarged. There is extensive colonic diverticulosis without evidence for acute diverticulitis. There is no evidence for a bowel obstruction. The appendix is normal. There is extensive plaque of the abdominal aorta. No acute fracture or suspicious lesion is identified within the visualized skeletal structures. IMPRESSION: 1. No acute process within the abdomen or pelvis. 2. Cholelithiasis. No evidence for acute cholecystitis. 3. Extensive colonic diverticulosis without evidence for acute diverticulitis. 4. Partially visualized moderate right pleural effusion, mildly decreased in prior chest CT. ACT 112: Negative or not required by law. Electronically signed by: Omero Reno M.D. 12/25/2020 7:16 PM Chest CTA 12/25/20 18:42 CT ANGIOGRAPHY OF THE CHEST, PULMONARY EMBOLUS PROTOCOL CLINICAL HISTORY: Chest pain. Evaluate for pulmonary embolus. COMPARISON STUDY: Chest CT November 05, 2020. Chest radiograph performed earlier today. TECHNIQUE: Following IV administration of 68 mL of Optiray, helical axial images of the chest were obtained utilizing the pulmonary embolus protocol. Maximal intensity projections and sagittal and coronal reformats were viewed on an independent 3D workstation. IV contrast was administered without complication. Automated exposure control was utilized for the study. A dose lowering techn ique was utilized adhering to the principles of ALARA. CT DOSE: 491.40 mGy.cm FINDINGS: No pulmonary emboli are identified. Note is made of moderate cardiomegaly and coronary artery calcification. There is no pericardial effusion. There are postoperative findings consistent with median sternotomy and bypass grafting. Multiple partially calcified mediastinal and bilateral hilar lymph nodes are unchanged. These suggest a granulomatous process. A 3.4 x 2 cm posterior mediastinal mass-like lesion adjacent to the distal esophagus on axial image 67 of 256 is similar to prior exam. This is indeterminate. A persistent moderate right pleural effusion is noted. This has slightly decreased in size. A left pleural fusion is decreased in size. Moderate right lower lobe airspace opacity with slight loss is noted. This favors atelectasis. Mild groundglass opacities are noted within the lungs. There is mild interlobular septal thickening. There is no pneumothorax. IMPRESSION: 1. No pulmonary emboli identified. 2. Persistent moderate right pleural effusion, slightly decreased since prior exam. Associated segmental right lower lobe airspace opacity which favors atelectasis. 3. 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 4. Evidence for a previous granulomatous process. ACT 112: Negative or not required by law. Electronically signed by: Omero Reno M.D. 12/25/2020 7:36 PM ECG Data Indication: abdominal pain Rate (beats per minute): 80 Rhythm: normal sinus Findings: no ST depression, no ST elevation and no prolonged QT [facility] Narrative 1707: The patient was evaluated in room A9. A complete history and physical exam was performed Cardiac monitoring: An order was placed for continuous cardiac monitoring. The monitor shows a rate of 80 with sinus rhythm 1844: Nursing staff informs me that the patient became tachypneic and his oxygen saturation dropped to 87% on room air. Patient was placed on 2 L nasal cannula. Patient states he does not wear oxygen. We will add labs and conduct CT of the chest. We will plan on admitting the patient to the hospitalist team. Covid swab ordered. 194: Vital signs stable on supplemental oxygen. CTA of the chest within normal limits. Patient will be admitted to the [facility] hospitalist team Dr. Fernando notified. Impression & Plan Hypoxia, Abdominal pain Discharge Plan Visit Data Chief Complaint: GI Assessment Stated Complaint: TIGHTNESS IN STOMACH, STOMACH BLOATING ED Provider: Tommy Dumont Discharge Problem: Hypoxia, Abdominal pain Patient Disposition: Admitted As Inpatient Forms Stand Alone Forms: [facility] Prescriptions Prescriptions: No Action simvastatin 10 mg tablet 10 mg PO DAILY RF: 0 allopurinol 100 mg tablet 100 mg PO QAM RF: 0 tamsulosin 0.4 mg capsule 0.4 mg PO DAILY RF: 0 aspirin 325 mg Tablet 325 mg PO QAM RF: 0 PreserVision AREDS [id number] Capsule 1 cap PO BID RF: 0 gabapentin 100 mg capsule 100 mg PO BID RF: 0 finasteride 5 mg tablet 5 mg PO DAILY RF: 0 Incruse Ellipta 62.5 mcg/actuation blister with device 1 inh inhalation QPM RF: 0 [id number] Tablet 1 tab PO QAM RF: 0 omega-3 fatty acids-fish oil [Fish Oil] 360-1,200 mg Capsule 1 cap PO QAM RF: 0 omeprazole 20 mg capsule,delayed release(DR/EC) 20 mg PO DAILY RF: 0 furosemide 20 mg tablet 20 mg PO DAILY RF: 0 metoprolol succinate [Toprol XL] 50 mg tablet extended release 24 hr 50 mg PO DAILY RF: 0 acetaminophen 500 mg Tablet 500 mg PO Q6H PRN (Reason: Pain) RF: 0 benzonatate 100 mg Capsule 100 mg PO BID PRN (Reason: Cough) RF: 0 nitroglycerin 0.4 mg Tablet, Sublingual 0.4 mg sublingual DAILY PRN (Reason: Chest Pain) RF: 0 polyethylene glycol 3350 [Miralax] 17 gram Powder In Packet 17 g PO DAILY RF: 0 simethicone 80 mg Tablet 80 mg PO TID PRN (Reason: gas) RF: 0 Referrals Referrals: Pritesh Murray DO [Primary Care Provider] - Discharge Problem: Abdominal pain Qualifiers: Abdominal location: unspecified location Qualified Code(s): R10.9 - Unspecified abdominal pain
[2020-12-25 17:54] LABS: INR 1.1 (0.9-1.1); Partial Thromboplastin Ratio 0.9; Prothrombin Time 11.5 Seconds (9.0-12.0)
[2020-12-25 18:06] LABS: Hematocrit (blood only) 46.7 % (42-52); Hemoglobin 15.4 g/dL (14.0-18.0); Mean Corpuscular Hemoglobin 32.9 pg (25-34); Mean Corpuscular Volume 99.8 fL (80-100); RDW Coefficient of Variation 14.3 % (11.5-14.5); RDW Standard Deviation 51.7 fL (36.4-46.3); Red Blood Count 4.68 M/uL (4.7-6.1); White Blood Count 5.43 K/uL (4.8-10.8)
[2020-12-25 18:24] LABS: Basophils # (auto) 0.05 K/uL (0-0.2); Basophils % (auto) 0.9 %; Eosinophils # (auto) 0.16 K/uL (0-0.5); Eosinophils % (auto) 2.9 %; Lymphocytes % (auto) 14.7 %; Monocytes % (auto) 14.7 %; Neutrophils # (auto) 3.62 K/uL (1.4-6.5); Neutrophils % (auto) 66.8 %; Platelet Count 115 K/uL (130-400)
[2020-12-25] MEDS ORDERED: OPTIRAY 300 100mL IV ONE (18:30)
[2020-12-25 18:38] LABS: Albumin Level 3.4 gm/dl (3.4-5.0); BUN Creatinine Ratio 14.5 (10-20); Bilirubin Direct 0.2 mg/dl (0-0.2); Calcium 9.1 mg/dl (8.5-10.1); Creatinine Clr Calc Pharmacy 41.2 ml/min; Est GFR (African American) 53.6; Est GFR (Non-African American) 46.2; Potassium 3.8 mmol/L (3.5-5.1)
[2020-12-25 18:54] LABS: Bilirubin,Total 0.6 mg/dl (0.2-1); Total Protein 7.5 gm/dl (6.4-8.2); Troponin I 0.028 ng/ml (0-0.045)
[2020-12-25] MEDS ORDERED: OPTIRAY 350 500ml IV ONE (19:11)
--- NOTE | 2020-12-25 19:17 | CT Scan Report ---
CT OF THE ABDOMEN AND PELVIS WITH CONTRAST CLINICAL HISTORY: Abdominal pain. COMPARISON STUDY: Right upper quadrant ultrasound June 10, 2011. TECHNIQUE: Following IV administration of 89 mL of Optiray, axial images of the abdomen and pelvis we re obtained from the lung bases to the proximal femurs. Images were reviewed in the axial, sagittal, and coronal planes. IV contrast was administered without complication. Automated exposure control wa s utilized for the study. A dose lowering technique was utilized adhering to the principles of ALARA . CT DOSE: 598.24 mGy.cm FINDINGS: A moderate right pleural effusion with right lower and middle lobe segmental atelectasis is partially imaged on this examination. No pneumatosis, free air or portal venous gas is present. Late ral segment hepatic lesion favors a cyst. There are gallstones within the gallbladder. There is no ev idence for acute cholecystitis. There is no biliary or pancreatic ductal dilatation. There is no akil pancreatic or pericholecystic infiltration. There is moderate bilateral renal thinning. There is no h ydronephrosis. Several renal cysts are noted. There are multiple subcentimeter renal lesions which ar e too small to characterize. Prominence of the left renal pelvis is noted. This suggest an extrarenal pelvis. Prostate is enlarged. There is extensive colonic diverticulosis without evidence for acute d iverticulitis. There is no evidence for a bowel obstruction. The appendix is normal. There is extensi ve plaque of the abdominal aorta. No acute fracture or suspicious lesion is identified within the vis ualized skeletal structures. IMPRESSION: 1. No acute process within the abdomen or pelvis. 2. Cholelithiasis. No evidence for acute cholecystitis. 3. Extensive colonic diverticulosis without evidence for acute diverticulitis. 4. Partially visualized moderate right pleural effusion, mildly decreased in prior chest CT. ACT 112: Negative or not required by law. Electronically signed by: Omero Reno M.D. 12/25/2020 7:16 PM
--- NOTE | 2020-12-25 19:38 | CT Scan Report ---
CT ANGIOGRAPHY OF THE CHEST, PULMONARY EMBOLUS PROTOCOL CLINICAL HISTORY: Chest pain. Evaluate for pulmonary embolus. COMPARISON STUDY: Chest CT November 05, 2020. Chest radiograph performed earlier today. TECHNIQUE: Following IV administration of 68 mL of Optiray, helical axial images of the chest were ob tained utilizing the pulmonary embolus protocol. Maximal intensity projections and sagittal and aneesh nal reformats were viewed on an independent 3D workstation. IV contrast was administered without com plication. Automated exposure control was utilized for the study. A dose lowering technique was uti lized adhering to the principles of ALARA. CT DOSE: 491.40 mGy.cm FINDINGS: No pulmonary emboli are identified. Note is made of moderate cardiomegaly and coronary art otf calcification. There is no pericardial effusion. There are postoperative findings consistent with median sternotomy and bypass grafting. Multiple partially calcified mediastinal and bilateral hilar lymph nodes are unchanged. These suggest a granulomatous process. A 3.4 x 2 cm posterior mediastinal mass-like lesion adjacent to the distal esophagus on axial image 67 of 256 is similar to prior exam. This is indeterminate. A persistent moderate right pleural effusion is noted. This has slightly decre ased in size. A left pleural fusion is decreased in size. Moderate right lower lobe airspace opacity with slight loss is noted. This favors atelectasis. Mild groundglass opacities are noted within the l ungs. There is mild interlobular septal thickening. There is no pneumothorax. IMPRESSION: 1. No pulmonary emboli identified. 2. Persistent moderate right pleural effusion, slightly decreased since prior exam. Associated segmen jorge right lower lobe airspace opacity which favors atelectasis. 3. No significant change in an indeterminate 3.4 x 2 cm posterior mediastinal mass like lesion adjace nt to the distal esophagus. 4. Evidence for a previous granulomatous process. ACT 112: Negative or not required by law. Electronically signed by: Omero Reno M.D. 12/25/2020 7:36 PM
[2020-12-25 20:03] LABS: Influenza A virus by PCR Negative (Neg); Influenza B virus by PCR Negative (Neg); RSV by PCR Negative (Neg); SARS CoV2 RNA(COVID-19) InHosp NEGATIVE (Negative)
[2020-12-25 20:12] LABS: Base Excess VBG 3.4 mEq/L; Oxygen Saturation VBG 62.5 %; pH VBG 7.35 (7.36-7.41)
--- NOTE | 2020-12-25 20:59 | History & Physical Report ---
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 Pt with mild COPD exacerbation and hypoxia on room air in ED, O2 sats as low as 84% but transient pt with wheezing, increased sputum production and hypoxia admit to tele titrate O2 as able maintain sats 88-92% IV solumedrol per Dr. Carter IV antibiotics per Dr. Carter Pulmonary toilet with nebs, incentive spirometer Continue Incruse Of note patient with pneumothorax 12/10, small, resolved without intervention Chest imaging consistent with persistent pleural effusion, patient does follow with pulmonary [facility] continue diuretics (3) Postprandial bloating: pt c/o of postprandial bloating, gas and inability to burp seen and evaluated by KAM Magana on 12/24 started on miralax 17g daily and simethicone prn try to regulate BMS consider biliary colic as etiology, CT reveals cholelithasis obtain RUQ US (4) CHF (congestive heart failure): (5) Pleural effusion: pt with chronic diastolic chf no acute exac, euvolemic weight stable at 191.6, dry daily weights, strict I and O continue metoprolol, lasix Chest CTA continues to reveal R pleural effusion, mild improvement monitor (6) CAD (coronary artery disease): H/o CABG. No chest pain or acute EKG changes. Continue beta bre, statin, aspirin (7) HTN (hypertension): bp controlled in ED continue metoprolol and lasix recently enalapril d/c in setting of dizziness (8) CKD (chronic kidney disease), stage III: baseline cr 1.3 bun 20, cr 1.35 monitor bmp, avoid nephrotoxic agents Chronic Thrombocytopenia plt stable monitor if on chemical vte prophylaxis (9) DVT prophylaxis: per Dr. Carter addendum Dispo: Tele FULL CODE PCP: Trevor Pt was seen and examined in collaboration with Dr. Carter, please see addendum for FULL details regarding assessment and treatment plan History of Present Illness Chief Complaint: Abdominal bloating, gas, inability to burp x2 months. 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 Of significance patient hospitalized 10/2020 secondary to acute respiratory failure in setting of acute on chronic diastolic heart failure in setting of hypertensive urgency. Patient was discharged home with increased metoprolol 50 mg daily, resumed enalapril 5 mg daily and Lasix 20 mg daily. He has been following closely with PCP Dr. Murray. Since discharge patient has been complaining of dizziness and therefore his enalapril was discontinued. Dizziness has since improved. Since discharge he admits to following daily Lasix and monitoring his weight. He has been main taining at 191.6 pounds. Patient did have a small right pneumothorax at end of November that was followed and resolved spontaneously per imaging. He comes in today because of complaints of increased abdominal bloating, gas, "I just cannot stand it." He states every time he eats or drinks anything his abdomen becomes very distended and very bloated. This will last for several hours. He feels like he has to pass gas or burp but is unable to. He does complain of being more on the constipated side however his last bowel movement was this morning. His bowel movement was normal for him. Prior to that his last bowel movement was 3 days ago. He has not lost any weight despite bloating but states, "I do not want to eat because of the bloating sensation." He states over the last 2 months he feels the bloating has been getting worse. He was seen and evaluated by GI in clinic yesterday who prescribed MiraLAX once daily as well as simethicone 80 mg 3 times daily as needed. He did start this and states, "maybe I just did not give it enough time to work. " He denies any fever, chills, sweats, lightheadedness, dizziness, syncope, chest pain, palpitations, shortness of breath, nausea, vomiting, abdominal pain, dysuria, increased urgency or frequency with urination, melena, hematochezia. Patient does have a chronic cough in setting of COPD. He feels that he is producing more sputum and it is, "nasty looking." He describes it as a reza discolored sputum. He does have a wheeze, but feels this is chronic. Unfortunately during patient's ER evaluation he did become mildly hypoxic with O2 saturations in the 80s requiring oxygen saturation to maintain O2 greater than 92%. For this he is recommended for admission. He underwent chest CTA which was negative for PE but did reveal a persistent moderate right pleural effusion, slightly decreased from prior exam with associated right lower lobe airspace opacity consistent with atelectasis. 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 CT abdomen pelvis was negative for acute process but did reveal extensive colonic diverticulosis as well as cholelithiasis. Allergies Allergy/AdvReac Type Severity Reaction Status Date / Time No Known Allergies Allergy Unknown Verified 12/25/20 20:05 Home Medications Medication Instructions Recorded Confirmed Type PreserVision AREDS 1 cap PO BID 09/27/20 12/25/20 History allopurinol 100 mg PO QAM 09/27/20 12/25/20 History aspirin 325 mg PO QAM 09/27/20 12/25/20 History simvastatin 10 mg PO DAILY 09/27/20 12/25/20 History tamsulosin 0.4 mg PO DAILY 09/27/20 12/25/20 History Incruse Ellipta 1 inh INHALATION QPM 11/05/20 12/25/20 History finasteride 5 mg PO DAILY 11/05/20 12/25/20 History gabapentin 100 mg PO BID 11/05/20 12/25/20 History spbgwlywxgvp-upqxvbel-wooaaq 1 tab PO QAM 11/05/20 12/25/20 History omega-3 fatty acids-fish oil [Fish 1 cap PO QAM 11/05/20 12/25/20 History Oil] acetaminophen 500 mg PO Q6H PRN 12/25/20 12/25/20 History benzonatate 100 mg PO BID PRN 12/25/20 12/25/20 History furosemide 20 mg PO DAILY 12/25/20 12/25/20 History metoprolol succinate [Toprol XL] 50 mg PO DAILY 12/25/20 12/25/20 History nitroglycerin 0.4 mg SUBLINGUAL DAILY PRN 12/25/20 12/25/20 History omeprazole 20 mg PO DAILY 12/25/20 12/25/20 History polyethylene glycol 3350 [Miralax] 17 g PO DAILY 12/25/20 12/25/20 History simethicone 80 mg PO TID PRN 12/25/20 12/25/20 History Past Med/Surg History Medical History CAD (coronary artery disease) Carotid stenosis CKD (chronic kidney disease), stage III Compressive atelectasis COPD (chronic obstructive pulmonary disease) History of DVT (deep vein thrombosis) History of malignant neoplasm of parotid gland HTN (hypertension) Surgical History History of coronary artery bypass graft History of right-sided carotid endarterectomy Hx of parotidectomy Family History Other Heart disease Social History Smoking Status: Former smoker Tobacco Type: Cigarettes, Pipe and Cigars Hx Alcohol Use: No Hx Substance Use: No Preferred Language: Japanese Communication Ability: Effective [employer] Laboratory Manager Required: No Beliefs That Will Affect Care: None marital status: Current Living Situation: Spouse Current Living Situation Comment: Home with Feels Safe at Home: Yes Safety Concerns: Feels Safe At This Time Assistive Devices: Cane, Denture - Upper, Denture - Lower, Hearing Aid - Right and Walker Review of Systems Review of Systems: All systems reviewed & are unremarkable except as noted in HPI & below Physical Exam Physical Exam: Constitutional: WD/WN, elderly, male, hard of hearing, vitals as above, NAD, sitting up in bed, pleasant, conversing easily Head: Normocephalic, Atraumatic Eyes: PERRL, conjunctivae normal, anicteric sclerae ENMT: Right hearing aid device in place, external ear and nose normal, oropharynx normal Neck: trachea midline, no thyromegaly normal visual inspection Respiratory: normal respiratory effort, lungs clear to auscultation, bilateral expiratory wheeze with prolonged expiratory phase, no rales, rhonchi. Normal insp/exp effort, no accessory muscle use Cardiovascular: RRR, no murmur, no edema Vessels: no JVD or carotid bruit Chest: normal inspection of chest Abdomen: Hyperactive bowel sounds, soft, nontender, no hepatosplenomegaly Musculoskeletal: no cyanosis or clubbing, extremities motor strength 5/5 Skin: no rashes, warm and dry normal turgor Neurologic: PERRL, EOMI, accommodation nl, no face palsy, no dysarthria CN's II-XI intact bilaterally and moves all extremities Psychiatric: A+Ox3, euthymic affect Lymphatic: no cervical or axillary lymphadenopathy : deferred Results & Data Results & Data ([facility]) Vital Signs (Past 12 Hours) Vital Signs Temp Pulse Pulse Resp BP BP Pulse Ox 12/25/20 18:48 99 12/25/20 18:38 88 28 H 140/79 87 L 12/25/20 17:02 36.7 C 71 18 143/88 H 97 Diagnostic Findings Chest X-Ray 12/25/20 17:08 XR chest 1V portable CLINICAL HISTORY: Abdominal pain. COMPARISON STUDY: Chest radiograph December 10, 2020. FINDINGS: There are median sternotomy wires. No pneumothorax is present. Cardiomegaly is noted without evidence for pulmonary edema. Small right and trace left pleural effusions persist. Right basilar opacity has slightly increased. IMPRESSION: 1. Small right pleural effusion with right basilar opacity, increased since prior exam. This could reflect consolidation or atelectasis. Radiographic follow-up is recommended. 2. Trace left pleural effusion. ACT 112: Negative or not required by law. Electronically signed by: Omero Reno M.D. 12/25/2020 5:34 PM Abdomen/Pelvis CT 12/25/20 17:23 CT OF THE ABDOMEN AND PELVIS WITH CONTRAST CLINICAL HISTORY: Abdominal pain. COMPARISON STUDY: Right upper quadrant ultrasound June 10, 2011. TECHNIQUE: Following IV administration of 89 mL of Optiray, axial images of the abdomen and pelvis were obtained from the lung bases to the proximal femurs. Images were reviewed in the axial, sagittal, and coronal planes. IV contrast was administered without complication. Automated exposure control was utilized for the study. A dose lowering technique was utilized adhering to the principles of ALARA. CT DOSE: 598.24 mGy.cm FINDINGS: A moderate right pleural effusion with right lower and middle lobe segmental atelectasis is partially imaged on this examination. No pneumatosis, free air or portal venous gas is present. Lateral segment hepatic lesion favors a cyst. There are gallstones within the gallbladder. There is no evidence for acute cholecystitis. There is no biliary or pancreatic ductal dilatation. There is no peripancreatic or pericholecystic infiltration. There is moderate bilateral renal thinning. There is no hydronephrosis. Several renal cysts are noted. There are multiple subcentimeter renal lesions which are too small to characterize. Prominence of the left renal pelvis is noted. This suggest an extrarenal pelvis. Prostate is enlarged. There is extensive colonic diverticulosis without evidence for acute diverticulitis. There is no evidence for a bowel obstruction. The appendix is normal. There is extensive plaque of the abdominal aorta. No acute fracture or suspicious lesion is identified within the visualized skeletal structures. IMPRESSION: 1. No acute process within the abdomen or pelvis. 2. Cholelithiasis. No evidence for acute cholecystitis. 3. Extensive colonic diverticulosis without evidence for acute diverticulitis. 4. Partially visualized moderate right pleural effusion, mildly decreased in prior chest CT. ACT 112: Negative or not required by law. Electronically signed by: Omero Reno M.D. 12/25/2020 7:16 PM Chest CTA 12/25/20 18:42 CT ANGIOGRAPHY OF THE CHEST, PULMONARY EMBOLUS PROTOCOL CLINICAL HISTORY: Chest pain. Evaluate for pulmonary embolus. COMPARISON STUDY: Chest CT November 05, 2020. Chest radiograph performed earlier today. TECHNIQUE: Following IV administration of 68 mL of Optiray, helical axial images of the chest were obtained utilizing the pulmonary embolus protocol. Maximal intensity projections and sagittal and coronal reformats were viewed on an independent 3D workstation. IV contrast was administered without complication. Automated exposure control was utilized for the study. A dose lowering technique was utilized adhering to the principles of ALARA. CT DOSE: 491.40 mGy.cm FINDINGS: No pulmonary emboli are identified. Note is made of moderate cardiomegaly and coronary artery calcification. There is no pericardial effusion. There are postoperative findings consistent with median sternotomy and bypass grafting. Multiple partially calcified mediastinal and bilateral hilar lymph nodes are unchanged. These suggest a granulomatous process. A 3.4 x 2 cm posterior mediastinal mass-like lesion adjacent to the distal esophagus on axial image 67 of 256 is similar to prior exam. This is indeterminate. A persistent moderate right pleural effusion is noted. This has slightly decreased in size. A left pleural fusion is decreased in size. Moderate right lower lobe airspace opacity with slight loss is noted. This favors atelectasis. Mild groundglass opacities are noted within the lungs. There is mild interlobular septal thickening. There is no pneumothorax. IMPRESSION: 1. No pulmonary emboli identified. 2. Persistent moderate right pleural effusion, slightly decreased since prior exam. Associated segmental right lower lobe airspace opacity which favors atelectasis. 3. 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 4. Evidence for a previous granulomatous process. ACT 112: Negative or not required by law. Electronically signed by: Omero Reno M.D. 12/25/2020 7:36 PM Medications Administered Discontinued Medications Ioversol (Optiray 300 100ml) 89 ml IV ONCE ONE Stop: 12/25/20 18:31 Last Admin: 12/25/20 18:31 Dose: 89 ml Documented by: [id number] Ioversol (Optiray 350 500ml) 68 ml IV ONCE ONE Stop: 12/25/20 19:12 Last Admin: 12/25/20 19:13 Dose: 68 ml Documented by: [id number] ECG Rate (beats per minute): 80 Rhythm: normal sinus COVID-19 Results Results COVID-19 Adm Lab Results: RBC 4.68 M/uL (4.7-6.1) L 12/25/20 WBC 5.43 K/uL (4.8-10.8) 12/25/20 Hgb 15.4 g/dL (14.0-18.0) 12/25/20 Hct 46.7 % (42-52) 12/25/20 Plt Count 115 K/uL (130-400) L 12/25/20 Neutrophils (%) (Auto) 66.8 % 12/25/20 Lymphocytes (%) (Auto) 14.7 % 12/25/20 Monocytes # (Auto) 0.80 K/uL (0.11-0.59) H 12/25/20 Eosinophils # (Auto) 0.16 K/uL (0-0.5) 12/25/20 Immature Granulocyte % (Auto) 0.0 % 12/25/20 Neutrophils # (Auto) 3.62 K/uL (1.4-6.5) 12/25/20 Lymphocytes # (Auto) 0.80 K/uL (1.2-3.4) L 12/25/20 Monocytes # (Auto) 0.80 K/uL (0.11-0.59) H 12/25/20 Eosinophils # (Auto) 0.16 K/uL (0-0.5) 12/25/20 Basophils # (Auto) 0.05 K/uL (0-0.2) 12/25/20 Immature Granulocyte # (Auto) 0.00 K/uL (0.00-0.02) 12/25/20 Na 138 mmol/L (136-145) 12/25/20 K 3.8 mmol/L (3.5-5.1) 12/25/20 Cl 102 mmol/L (98-107) 12/25/20 CO2 31 mmol/L (21-32) 12/25/20 Anion Gap 6.0 (3-11) 12/25/20 BUN 20 mg/dl (7-18) H 12/25/20 Creatinine 1.35 mg/dl (0.6-1.4) 12/25/20 BUN/Creatinine Ratio 14.5 (10-20) 12/25/20 Glucose Level 88 mg/dl (70-99) 12/25/20 Ca 9.1 mg/dl (8.5-10.1) 12/25/20 Total Bilirubin 0.6 mg/dl (0.2-1) 12/25/20 Direct Bilirubin 0.2 mg/dl (0-0.2) 12/25/20 AST/SGOT 23 U/L (15-37) 12/25/20 ALT/SGPT 20 U/L (12-78) 12/25/20 Alkaline Phosphatase 143 U/L (45-117) H 12/25/20 Total Protein 7.5 gm/dl (6.4-8.2) 12/25/20 Albumin 3.4 gm/dl (3.4-5.0) 12/25/20 Troponin I 0.028 ng/ml (0-0.045) 12/25/20 HR-Cxk-Y-Type Natriuretic Pep 1674 pg/ml (0-1800) 12/25/20 PTT 24.0 Seconds (21.0-31.0) 12/25/20 INR 1.1 (0.9-1.1) 12/25/20 COVID-19 PCR NEGATIVE (Negative) 12/25/20 Influenza Virus Type A (PCR) Negative (Neg) 12/25/20 Influenza Virus Type B (PCR) Negative (Neg) 12/25/20 Chest X-Ray 12/25/20 Supervising Physician Co-Signing Physician Notes IM ATTENDING : Patient seen and examined. History obtained from patient, family, and records. Preceding documentation by Ms. Porsha Sung PA-C reviewed. FINAL ASSESSMENT AND PLAN as follows : Acute hypoxemic respiratory failure Multifactorial : COPD exacerbation Abdominal pain, possible biliary colic CAD status post CABG/PVD status post surgery Hypertension, elevated secondary to illness Hyperlipidemia on statin Rx History DVT as per records Chronic right pleural effusion, decreased on today's CT Chronic anemia, hemoglobin at baseline Chronic thrombocytopenia Past tobacco abuse Medical telemetry Supplemental O2 Doxycycline, nebs RTC, prednisone course General surgery consult Re: Recurrent postprandial abdominal pain/bloating symptoms, possible biliary colic N.p.o. until patient seen by Surgery DVT prophylaxis. SCDs Re: Thrombocytopenia Full code Patient daughter requesting updates from providers. Rocio Chatterjee, contact #[phone]. Text document was generated using [employer] voice recognition software. It may contain grammatical or spelling errors. Kindly contact undersigned for clarification of any documentation item in question.
[2020-12-25] MEDS ORDERED: DOXYCYCLINE HYCLATE 100 MG in DEXTROSE 5% 100 ML IV ONE (21:15)
[2020-12-25] MEDS ORDERED: ALBUT/IPRATROP 3MG/0.5MG NEB 3 ML VIAL NEB STA (21:25)
[2020-12-25] MEDS ORDERED: METOPROLOL TARTRATE 1 MG/ML VIAL IV STA (21:25)
[2020-12-25] MEDS ORDERED: traMADol HCL 50 MG TABLET PO PRN (22:38)
[2020-12-25] MEDS ORDERED: PROMETHAZINE HCL 12.5 MG in SODIUM CHLORIDE 0.9% 50 ML IV PRN (22:38)
[2020-12-25] MEDS ORDERED: ACETAMINOPHEN 325 MG TAB PO PRN (22:38)
[2020-12-25] MEDS ORDERED: MoRPHine SULFATE 2 MG/ML CARP IV PRN (22:38)
[2020-12-25] MEDS ORDERED: NSS + 20MEQ KCL 20 MEQ/1,000 ML BAG IV SCH (23:15)
[2020-12-26] MEDS: GABAPENTIN 100 MG CAP PO SCH ×2 (00:51→09:23)
[2020-12-26] MEDS ORDERED: XOPENEX/ATROVENT 1.25mg/0.5MG NEB COMBO NEB SCH (01:00)
[2020-12-26] MEDS: LEVALBUTEROL 1.25MG/0.5ML NEB INH SCH ×2 (01:03→07:05)
[2020-12-26] MEDS: IPRATROPIUM BROMIDE NEB SOLN 0.02% 2.5 ML VIAL INH SCH ×2 (01:03→07:05)
[2020-12-26 08:19] LABS: Hematocrit (blood only) 45.9 % (42-52); Hemoglobin 15.1 g/dL (14.0-18.0); Mean Corpuscular Hemoglobin 32.8 pg (25-34); Mean Corpuscular Hgb Conc 32.9 g/dL (32-36); Mean Corpuscular Volume 99.6 fL (80-100); Mean Platelet Volume 12.1 fL (7.4-10.4); Platelet Count 114 K/uL (130-400); RDW Coefficient of Variation 14.4 % (11.5-14.5); RDW Standard Deviation 51.8 fL (36.4-46.3); Red Blood Count 4.61 M/uL (4.7-6.1); White Blood Count 3.01 K/uL (4.8-10.8)
[2020-12-26 08:26] LABS: Eosinophils # (auto) 0.01 K/uL (0-0.5); Eosinophils % (auto) 0.3 %; Lymphocytes # (auto) 0.36 K/uL (1.2-3.4); Monocytes # (auto) 0.07 K/uL (0.11-0.59); Monocytes % (auto) 2.3 %; Neutrophils # (auto) 2.57 K/uL (1.4-6.5); Neutrophils % (auto) 85.4 %
[2020-12-26 08:29] LABS: Albumin Level 3.1 gm/dl (3.4-5.0); BUN Creatinine Ratio 16.3 (10-20); Calcium 9.3 mg/dl (8.5-10.1); Creatinine Clr Calc Pharmacy 47.7 ml/min; Est GFR (African American) 64.4; Est GFR (Non-African American) 55.5; Potassium 4.2 mmol/L (3.5-5.1)
[2020-12-26 08:32] LABS: Albumin Globulin Ratio 0.8 (0.9-2); Bilirubin,Total 0.8 mg/dl (0.2-1); Globulin 3.8 gm/dl (2.5-4.0); Total Protein 6.9 gm/dl (6.4-8.2)
[2020-12-26] MEDS ORDERED: POLYETHYLENE (MIRALAX) 17 GM PACK PO SCH (09:00)
[2020-12-26] MEDS ORDERED: DOXYCYCLINE HYCLATE 100 MG CAP PO SCH (09:00)
[2020-12-26] MEDS ORDERED: CEROVITE ADV FORMULA TAB PO SCH (09:00)
[2020-12-26] MEDS: ASPIRIN 325 MG ECTAB PO SCH ×2 (09:23→12:54)
[2020-12-26] MEDS: METOPROLOL SUCC 50MG EXT REL TAB PO SCH ×2 (09:23→12:54)
[2020-12-26] MEDS: TAMSULOSIN HCL 0.4 MG CAP PO SCH ×2 (09:23→12:55)
[2020-12-26] MEDS: allopurinoL 100 MG TAB PO SCH ×2 (09:24→12:54)
[2020-12-26] MEDS: predniSONE 20 MG TAB PO SCH ×2 (09:24→12:55)
[2020-12-26] MEDS: FINASTERIDE 5 MG TAB PO SCH ×2 (09:24→12:54)
[2020-12-26] MEDS: SIMVASTATIN 10 MG TAB PO SCH ×2 (09:24→12:55)
[2020-12-26] MEDS: DOCUSATE SODIUM/SENNA 50/8.6MG TAB PO SCH ×2 (09:24→12:54)
[2020-12-26] MEDS: PANTOprazole 40 MG TAB PO SCH ×2 (09:25→12:55)
[2020-12-26] MEDS ORDERED: LEVALBUTEROL 1.25MG/0.5ML NEB INH PRN (10:00)
[2020-12-26] MEDS ORDERED: IPRATROPIUM BROMIDE NEB SOLN 0.02% 2.5 ML VIAL INH PRN (10:00)
--- NOTE | 2020-12-26 10:02 | Electrocardiogram Report ---
Test Reason : Blood Pressure : / mmHG Vent. 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
--- NOTE | 2020-12-26 11:47 | Gastrointestinal Consultation ---
Date of Consultation December 26, 2020 Assessment & Plan (1) Postprandial bloating: Likely secondary to constipation. Continue daily Miralax. (2) Belching: OP EGD to r/o gastric Outlet Obstruction. For complete eval, will consider small bowel x-ray series (no oral contrast done for CT). Present on Admission?: Yes (3) Lymphadenopathy, hilar: EUS with possible FNA of the lymph nodes - as an OP. Appreciate primary hospitalists management of the pleural effusion. Present on Admission?: Yes Supervising Physician Co-Signing Physician Notes I performed a history and physical examination of the patient today, including specifically on physical exam - soft abdomen. I have discussed the patient's management with the advanced practitioner. Please refer to the nurse practitioner's note for the documented findings and plan of care. Bloating improved. Should use Miralax and GasX. OP EUS for FNA of the mediastinal node. Recall GI if needed. History of Present Illness Reason for Consultation: bloating Requesting Physician: Dr. Menard Attending Physician: Janae Menard, DO History of Present Illness Mr. Bill Chatterjee is an 89 yr old male pt of Dr. 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 He was seen in the OP GI office 2 days ago and abd x-ray at that time with constipation and gassy distention but no suggestion of lesions or obstruction. The pt tried Miralax, Omeprazole and Gaviscon w/o improvement. Most recent BM was yesterday morning. He is "very hungry." On arrival CTAP with IV contrast without any significant abnormalities. Chest CTA with a questionable 3.4 x 2 cm posterior mediastinal mass-like lesion adjacent to the distal esophagus and a persistent right pleural effusion this was apparently initially seen on CT here in September. No hx of prior EGDs. Most recent colonoscopy in 2010 with two diminutive adenomatous polyps and recommendation for surveillance in 5 yrs. He tells me that he has had "terrible bloating," after anytime that he eats or drinks anything and this is worse with with solid foods. ED notes mention that he indicated that he has been unable to belch. However, he told me that if he drinks anything, then a few minutes later, he has extensive belching. I had him drink some water while I examined him. There was no difficulty swallowing and during the next 10 minutes, there was no c/o discomfort and no belching. He verifies that he has a good appetite, that he "wants to eat." He denies any difficulty swallowing or chest discomfort after swallowing. Denies recent reflux symptoms. He reports a hx of constipation but tells me that he always passes a BM every day. He has had abdominal bloating, verifying that he has "sometimes," had to change his belt to a larger size despite having a 10 lbs weight loss in t he past month. He recalls that all these symptoms began, "a month ago or maybe more than a month ago." He denies nausea/vomiting, diarrhea, bloody BMs or black BMs. He is sitting up in a chair at the beside and appears well. Allergies Allergy/AdvReac Type Severity Reaction Status Date / Time No Known Allergies Allergy Unknown Verified 12/25/20 20:05 Home Medications Medication Instructions Recorded Confirmed Type PreserVision AREDS 1 cap PO BID 09/27/20 12/25/20 History allopurinol 100 mg PO QAM 09/27/20 12/25/20 History aspirin 325 mg PO QAM 09/27/20 12/25/20 History simvastatin 10 mg PO DAILY 09/27/20 12/25/20 History tamsulosin 0.4 mg PO DAILY 09/27/20 12/25/20 History Incruse Ellipta 1 inh INHALATION QPM 11/05/20 12/25/20 History finasteride 5 mg PO DAILY 11/05/20 12/25/20 History gabapentin 100 mg PO BID 11/05/20 12/25/20 History fjygrpiuhted-gjasmlxg-cwdtbi 1 tab PO QAM 11/05/20 12/25/20 History omega-3 fatty acids-fish oil [Fish 1 cap PO QAM 11/05/20 12/25/20 History Oil] acetaminophen 500 mg PO Q6H PRN 12/25/20 12/25/20 History benzonatate 100 mg PO BID PRN 12/25/20 12/25/20 History furosemide 20 mg PO DAILY 12/25/20 12/25/20 History metoprolol succinate [Toprol XL] 50 mg PO DAILY 12/25/20 12/25/20 History nitroglycerin 0.4 mg SUBLINGUAL DAILY PRN 12/25/20 12/25/20 History omeprazole 20 mg PO DAILY 12/25/20 12/25/20 History polyethylene glycol 3350 [Miralax] 17 g PO DAILY 12/25/20 12/25/20 History simethicone 80 mg PO TID PRN 12/25/20 12/25/20 History Patient History Medical History CAD (coronary artery disease) Carotid stenosis CKD (chronic kidney disease), stage III Compressive atelectasis COPD (chronic obstructive pulmonary disease) History of DVT (deep vein thrombosis) History of malignant neoplasm of parotid gland HTN (hypertension) Surgical History History of coronary artery bypass graft History of right-sided carotid endarterectomy Hx of parotidectomy Family History Other Heart disease Social History Smoking Status: Former smoker Tobacco Type: Cigarettes, Pipe and Cigars Hx Alcohol Use: No Hx Substance Use: No Preferred Language: Upper Sorbian Communication Ability: Effective Claims Analyst Required: No Beliefs That Will Affect Care: None marital status: Current Living Situation: Spouse Current Living Situation Comment: Home with Feels Safe at Home: Yes Safety Concerns: Feels Safe At This Time Assistive Devices: Walker Review of Systems Review of Systems: ROS: Gen: Denies weakness, fevers, weight loss Eyes: No eye redness, or pain, no recent vision changes Resp: Abdominal pressure can cause a feeling of SOB; no cough Cardio: No palpitations/irregular beats, no chest pain GI: See HPI : Denies pain on urination Skin: No jaundice, itching or new rashes Physical Exam Constitutional: WD/WN, vitals as above Eyes: PERRL, conjunctivae normal, anicteric sclerae ENMT: external ear and nose normal, oropharynx normal Neck: trachea midline, no thyromegaly Respiratory: normal respiratory effort, lungs clear to auscultation Cardiovascular: RRR, no murmur, no edema Gastrointestinal (Abdomen): Inspection/Auscultation: + abdomen distended (very minimal) and + hypoactive bowel sounds Percussion/Palpation: abdomen soft; abdomen nontender, no guarding, no hepatosplenomegaly and no ascites Musculoskeletal: no cyanosis or clubbing, extremities motor strength 5/5 Skin: no rashes, warm and dry Neurologic: PERRL, EOMI, accommodation nl, no face palsy, no dysarthria Psychiatric: A+Ox3, euthymic affect Lymphatic: no cervical or axillary lymphadenopathy Results & Data ([facility]) Vital Signs (Past 12 Hours) Vital Signs Temp Pulse Pulse Resp BP BP Pulse Ox 12/26/20 11:34 36.4 C L 90 20 145/83 H 94 12/26/20 08:51 36.8 C 94 H 20 137/73 93 12/26/20 07:16 79 12/26/20 07:07 92 H 18 93 12/26/20 03:26 36.4 C L 85 18 117/70 92 12/26/20 01:03 81 18 91 12/26/20 00:56 74 12/25/20 23:42 77 Laboratory Results WBC 3, Hb 15, Hct 45, Plats 114, Na 141, K 4.2, Dl 104, CO2 29, BUN 19, Cr 1.16, glucose 126. Diagnostic Findings CT abd/pelvis with IV contrast on 12/25/20: FINDINGS: A moderate right pleural effusion with right lower and middle lobe segmental atelectasis is partially imaged on this examination. No pneumatosis, free air or portal venous gas is present. Lateral segment hepatic lesion favors a cyst. There are gallstones within the gallbladder. There is no evidence for acute cholecystitis. There is no biliary or pancreatic ductal dilatation. There is no peripancreatic or pericholecystic infiltration. There is moderate bilateral renal thinning. There is no hydronephrosis. Several renal cysts are noted. There are multiple subcentimeter renal lesions which are too small to characterize. Prominence of the left renal pelvis is noted. This suggest an extrarenal pelvis. Prostate is enlarged. There is extensive colonic diverticulosis without evidence for acute diverticulitis. There is no evidence for a bowel obstruction. The appendix is normal. There is extensive plaque of the abdominal aorta. No acute fracture or suspicious lesion is identified within the visualized skeletal structures. Chest CTA on 11/24/20: 1. No pulmonary emboli identified. 2. Persistent moderate right pleural effusion, slightly decreased since prior exam. Associated segmental right lower lobe airspace opacity which favors atelectasis. 3. 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 4. Evidence for a previous granulomatous process.
--- NOTE | 2020-12-26 13:24 | Surgery Consultation ---
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 possible cause partial obstruction of esophagus. recommend consult Thoracic surgery for further study and diagnosis , out-patient setting ok, gallstone, no cholecystitis signs, base on co-morbilities, no surgery indication now, F/U me out-patient, sign off today, please call with questions, Thanks, Present on Admission?: Yes Supervising Physician Co-Signing Physician Notes IM ATTENDING : Patient seen and examined. History obtained from patient, family, and records. Preceding documentation by Ms. Porsha Sung PA-C reviewed. FINAL ASSESSMENT AND PLAN as follows : Acute hypoxemic respiratory failure Multifactorial : COPD exacerbation Abdominal pain, possible biliary colic CAD status post CABG/PVD status post surgery Hypertension, elevated secondary to illness Hyperlipidemia on statin Rx History DVT as per records Chronic right pleural effusion, decreased on today's CT Chronic anemia, hemoglobin at baseline Chronic thrombocytopenia Past tobacco abuse Medical telemetry Supplemental O2 Doxycycline, nebs RTC, prednisone course General surgery consult Re: Recurrent postprandial abdominal pain/bloating symptoms, possible biliary colic N.p.o. until patient seen by Surgery DVT prophylaxis. SCDs Re: Thrombocytopenia Full code Patient daughter requesting updates from providers. Ms. Rocio Chatterjee, contact #[phone]. Text document was generated using [employer] voice recognition software. It may contain grammatical or spelling errors. Kindly contact undersigned for clarification of any documentation item in question. History of Present Illness Attending Physician: Janae Menard DO History of Present Illness Chief Complaint: Abdominal bloating, gas, inability to burp x2 months. 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 Of significance patient hospitalized 10/2020 secondary to acute respiratory failure in setting of acute on chronic diastolic heart failure in setting of hypertensive urgency. Patient was discharged home with increased metoprolol 50 mg daily, resumed enalapril 5 mg daily and Lasix 20 mg daily. He has been following closely with PCP Dr. Murray. Since discharge patient has been complaining of dizziness and therefore his enalapril was discontinued. Dizziness has since improved. Since discharge he admits to following daily Lasix and monitoring his weight. He has been maintaining at 191.6 pounds. Patient did have a small right pneumothorax at end of November that was followed and resolved spontaneously per imaging. He comes in today because of complaints of increased abdominal bloating, gas, "I just cannot stand it." He states every time he eats or drinks anything his abdomen becomes very distended and very bloated. This will last for several hours. He feels like he has to pass gas or burp but is unable to. He does complain of being more on the constipated side however his last bowel movement was this morning. His bowel movement was normal for him. Prior to that his last bowel movement was 3 days ago. He has not lost any weight despite bloating but states, "I do not want to eat because of the bloating sensation." He states over the last 2 months he feels the bloating has been getting worse. He was seen and evaluated by GI in clinic yesterday who prescribed MiraLAX once daily as well as simethicone 80 mg 3 times daily as needed. He did start this and states, "maybe I just did not give it enough time to work. " He denies any fever, chills, sweats, lightheadedness, dizziness, syncope, chest pain, palpitations, shortness of breath, nausea, vomiting, abdominal pain, dysuria, increased urgency or frequency with urination, melena, hematochezia. Patient does have a chronic cough in setting of COPD. He feels that he is producing more sputum and it is, "nasty looking." He describes it as a reza discolored sputum. He does have a wheeze, but feels this is chronic. Unfortunately during patient's ER evaluation he did become mildly hypoxic with O2 saturations in the 80s requiring oxygen saturation to maintain O2 greater than 92%. For this he is recommended for admission. He underwent chest CTA which was negative for PE but did reveal a persistent moderate right pleural effusion, slightly decreased from prior exam with associated right lower lobe airspace opacity consistent with atelectasis. 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 CT abdomen pelvis was negative for acute process but did reveal extensive colonic diverticulosis as well as cholelithiasis. I ( Waldemar Leonard MD ) got a call for consult gallstone and bloating, I reviewed pt's H/P, labs, CT scan with pt, pt has no abdominal pain only bloating after eat or drinking liquid. Allergies Allergy/AdvReac Type Severity Reaction Status Date / Time No Known Allergies Allergy Unknown Verified 12/25/20 20:05 Home Medications Medication Instructions Recorded Confirmed Type PreserVision AREDS 1 cap PO BID 09/27/20 12/25/20 History allopurinol 100 mg PO QAM 09/27/20 12/25/20 History aspirin 325 mg PO QAM 09/27/20 12/25/20 History simvastatin 10 mg PO DAILY 09/27/20 12/25/20 History tamsulosin 0.4 mg PO DAILY 09/27/20 12/25/20 History Incruse Ellipta 1 inh INHALATION QPM 11/05/20 12/25/20 History finasteride 5 mg PO DAILY 11/05/20 12/25/20 History gabapentin 100 mg PO BID 11/05/20 12/25/20 History [id number]-[id number] 1 tab PO QAM 11/05/20 12/25/20 History omega-3 fatty acids-fish oil [Fish 1 cap PO QAM 11/05/20 12/25/20 History Oil] acetaminophen 500 mg PO Q6H PRN 12/25/20 12/25/20 History benzonatate 100 mg PO BID PRN 12/25/20 12/25/20 History furosemide 20 mg PO DAILY 12/25/20 12/25/20 History metoprolol succinate [Toprol XL] 50 mg PO DAILY 12/25/20 12/25/20 History nitroglycerin 0.4 mg SUBLINGUAL DAILY PRN 12/25/20 12/25/20 History omeprazole 20 mg PO DAILY 12/25/20 12/25/20 History polyethylene glycol 3350 [Miralax] 17 g PO DAILY 12/25/20 12/25/20 History simethicone 80 mg PO TID PRN 12/25/20 12/25/20 History Past Med/Surg History Medical History CAD (coronary artery disease) Carotid stenosis CKD (chronic kidney disease), stage III Compressive atelectasis COPD (chronic obstructive pulmonary disease) History of DVT (deep vein thrombosis) History of malignant neoplasm of parotid gland HTN (hypertension) Surgical History History of coronary artery bypass graft History of right-sided carotid endarterectomy Hx of parotidectomy Family History Other Heart disease Social History Smoking Status: Former smoker Tobacco Type: Cigarettes, Pipe and Cigars Hx Alcohol Use: No Hx Substance Use: No Preferred Language: Danish Communication Ability: Effective Intelligence Manager Required: No Beliefs That Will Affect Care: None marital status: Current Living Situation: Spouse Current Living Situation Comment: Home with Feels Safe at Home: Yes Safety Concerns: Feels Safe At This Time Assistive Devices: Cane, Denture - Upper, Denture - Lower, Hearing Aid - Right and Walker Review of Systems Review of Systems: All systems reviewed & are unremarkable except as noted in HPI & below Allergies Allergy/AdvReac Type Severity Reaction Status Date / Time No Known Allergies Allergy Unknown Verified 12/25/20 20:05 Home Medications Medication Instructions Recorded Confirmed Type PreserVision AREDS 1 cap PO BID 09/27/20 12/25/20 History allopurinol 100 mg PO QAM 09/27/20 12/25/20 History aspirin 325 mg PO QAM 09/27/20 12/25/20 History simvastatin 10 mg PO DAILY 09/27/20 12/25/20 History tamsulosin 0.4 mg PO DAILY 09/27/20 12/25/20 History Incruse Ellipta 1 inh INHALATION QPM 11/05/20 12/25/20 History finasteride 5 mg PO DAILY 11/05/20 12/25/20 History gabapentin 100 mg PO BID 11/05/20 12/25/20 History yczsuvnvfpjs-ybfuopol-pfdjkr 1 tab PO QAM 11/05/20 12/25/20 History omega-3 fatty acids-fish oil [Fish 1 cap PO QAM 11/05/20 12/25/20 History Oil] acetaminophen 500 mg PO Q6H PRN 12/25/20 12/25/20 History benzonatate 100 mg PO BID PRN 12/25/20 12/25/20 History furosemide 20 mg PO DAILY 12/25/20 12/25/20 History metoprolol succinate [Toprol XL] 50 mg PO DAILY 12/25/20 12/25/20 History nitroglycerin 0.4 mg SUBLINGUAL DAILY PRN 12/25/20 12/25/20 History omeprazole 20 mg PO DAILY 12/25/20 12/25/20 History polyethylene glycol 3350 [Miralax] 17 g PO DAILY 12/25/20 12/25/20 History simethicone 80 mg PO TID PRN 12/25/20 12/25/20 History Patient History Medical History CAD (coronary artery disease) Carotid stenosis CKD (chronic kidney disease), stage III Compressive atelectasis COPD (chronic obstructive pulmonary disease) History of DVT (deep vein thrombosis) History of malignant neoplasm of parotid gland HTN (hypertension) Surgical History History of coronary artery bypass graft History of right-sided carotid endarterectomy Hx of parotidectomy Family History Other Heart disease Social History Smoking Status: Former smoker Tobacco Type: Cigarettes, Pipe and Cigars Hx Alcohol Use: No Hx Substance Use: No Preferred Language: Danish Communication Ability: Effective Intelligence Manager Required: No Beliefs That Will Affect Care: None marital status: Current Living Situation: Spouse Current Living Situation Comment: Home with Feels Safe at Home: Yes Safety Concerns: Feels Safe At This Time Assistive Devices: Walker Review of Systems Review of Systems: All systems reviewed & are unremarkable except as noted in HPI & below Constitutional: as per Subjective / HPI Eyes: as per Subjective / HPI Ear, Nose, Mouth, Throat: as per Subjective / HPI Respiratory: as per Subjective / HPI COPD, pneumothorax, pleural effusion Cardiovascular: as per Subjective / HPI Additional Comments: HTN, CAD, S/P cabg, CHF, carotic stenosis, Gastrointestinal: as per Subjective / HPI Genitourinary: + as per Subjective / HPI and + problem reported (CKD) Musculoskeletal: as per Subjective / HPI Integumentary: as per Subjective / HPI Neurologic: as per Subjective / HPI Psychiatric: as per Subjective / HPI Endocrine: as per Subjective / HPI maligant neoplasm of parotic gland Hematologic / Lymphatic: as per Subjective / HPI Physical Exam Constitutional: WD/WN, vitals as above well developed and well nourished Eyes: PERRL, conjunctivae normal, anicteric sclerae ENMT: external ear and nose normal, oropharynx normal Neck: trachea midline, no thyromegaly Respiratory: Auscultation: + diminished lung sounds (at right lower chest) Cardiovascular: RRR, no murmur, no edema Rate/Rhythm: regular rate and regular rhythm Gastrointestinal (Abdomen): normal bowel sounds, soft, nontender, no hepat osplenomegaly Percussion/Palpation: abdomen soft NT, ND BS + Musculoskeletal: no cyanosis or clubbing, extremities motor strength 5/5 Skin: no rashes, warm and dry Neurologic: awake Psychiatric: Orientation: alert and oriented x 3 Results & Data (MN) Vital Signs (Past 12 Hours) Vital Signs Temp Pulse Pulse Resp BP BP Pulse Ox 12/26/20 11:34 36.4 C L 90 20 145/83 H 94 12/26/20 08:51 36.8 C 94 H 20 137/73 93 12/26/20 07:16 79 12/26/20 07:07 92 H 18 93 12/26/20 03:26 36.4 C L 85 18 117/70 92 Laboratory Results Abnormal lab results 12/25/20 12/25/20 12/25/20 Range/Units 17:22 17:22 19:45 WBC (4.8-10.8) K/uL RBC 4.68 L (4.7-6.1) M/uL RDW Std Deviation 51.7 H (36.4-46.3) fL Plt Count 115 L (130-400) K/uL MPV 12.0 H (7.4-10.4) fL Lymph # (Auto) 0.80 L (1.2-3.4) K/uL [place] # (Auto) 0.80 H (0.11-0.59) K/uL VBG pH 7.35 L (7.36-7.41) VBG pCO2 57 H (38-50) mmHg BUN 20 H (7-18) mg/dl Glucose (70-99) mg/dl Alkaline Phosphatase 143 H (45-117) U/L Albumin (3.4-5.0) gm/dl Albumin/Globulin Ratio (0.9-2) 12/26/20 12/26/20 Range/Units 07:14 07:14 WBC 3.01 L (4.8-10.8) K/uL RBC 4.61 L (4.7-6.1) M/uL RDW Std Deviation 51.8 H (36.4-46.3) fL Plt Count 114 L (130-400) K/uL MPV 12.1 H (7.4-10.4) fL Lymph # (Auto) 0.36 L (1.2-3.4) K/uL [place] # (Auto) 0.07 L (0.11-0.59) K/uL VBG pH (7.36-7.41) VBG pCO2 (38-50) mmHg BUN 19 H (7-18) mg/dl Glucose 126 H (70-99) mg/dl Alkaline Phosphatase 127 H (45-117) U/L Albumin 3.1 L (3.4-5.0) gm/dl Albumin/Globulin Ratio 0.8 L (0.9-2) Diagnostic Findings CT ANGIOGRAPHY OF THE CHEST, PULMONARY EMBOLUS PROTOCOL CLINICAL HISTORY: Chest pain. Evaluate for pulmonary embolus. COMPARISON STUDY: Chest CT November 05, 2020. Chest radiograph performed earlier today. TECHNIQUE: Following IV administration of 68 mL of Optiray, helical axial images of the chest were obtained utilizing the pulmonary embolus protocol. Maximal intensity projections and sagittal and coronal reformats were viewed on an independent 3D workstation. IV contrast was administered without complication. Automated exposure control was utilized for the study. A dose lowering technique was utilized adhering to the principles of ALARA. CT DOSE: 491.40 mGy.cm FINDINGS: No pulmonary emboli are identified. Note is made of moderate cardiomegaly and coronary artery calcification. There is no pericardial effusion. There are postoperative findings consistent with median sternotomy and bypass grafting. Multiple partially calcified mediastinal and bilateral hilar lymph nodes are unchanged. These suggest a granulomatous process. A 3.4 x 2 cm posterior mediastinal mass-like lesion adjacent to the distal esophagus on axial image 67 of 256 is similar to prior exam. This is indeterminate. A persistent moderate right pleural effusion is noted. This has slightly decreased in size. A left pleural fusion is decreased in size. Moderate right lower lobe airspace opacity with slight loss is noted. This favors atelectasis. Mild groundglass opacities are noted within the lungs. There is mild interlobular septal thickening. There is no pneumothorax. IMPRESSION: 1. No pulmonary emboli identified. 2. Persistent moderate right pleural effusion, slightly decreased since prior exam. Associated segmental right lower lobe airspace opacity which favors atelectasis. 3. 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 4. Evidence for a previous granulomatous process. CT OF THE ABDOMEN AND PELVIS WITH CONTRAST CLINICAL HISTORY: Abdominal pain. COMPARISON STUDY: Right upper quadrant ultrasound June 10, 2011. TECHNIQUE: Following IV administration of 89 mL of Optiray, axial images of the abdomen and pelvis were obtained from the lung bases to the proximal femurs. Images were reviewed in the axial, sagittal, and coronal planes. IV contrast was administered without complication. Automated exposure control was utilized for the study. A dose lowering technique was utilized adhering to the principles of ALARA. CT DOSE: 598.24 mGy.cm FINDINGS: A moderate right pleural effusion with right lower and middle lobe segmental atelectasis is partially imaged on this examination. No pneumatosis, free air or portal venous gas is present. Lateral segment hepatic lesion favors a cyst. There are gallstones within the gallbladder. There is no evidence for acute cholecystitis. There is no biliary or pancreatic ductal dilatation. There is no peripancreatic or pericholecystic infiltration. There is moderate bilateral renal thinning. There is no hydronephrosis. Several renal cysts are noted. There are multiple subcentimeter renal lesions which are too small to characterize. Prominence of the left renal pelvis is noted. This suggest an extrarenal pelvis. Prostate is enlarged. There is extensive colonic diverticulosis without evidence for acute diverticulitis. There is no evidence for a bowel obstruction. The appendix is normal. There is extensive plaque of the abdominal aorta. No acute fracture or suspicious lesion is identified within the visualized skeletal structures. IMPRESSION: 1. No acute process within the abdomen or pelvis. 2. Cholelithiasis. No evidence for acute cholecystitis. 3. Extensive colonic diverticulosis without evidence for acute diverticulitis. 4. Partially visualized moderate right pleural effusion, mildly decreased in prior chest CT.
--- NOTE | 2020-12-26 14:57 | Pulmonary Consultation ---
Date of Consultation December 26, 2020 Assessment & Plan (1) Pleural effusion: (2) Abnormal CT scan of lung: Impression: 89-year-old male with transudate of effusion which is not significantly increased in size compared to prior CT scan from several months ago admitted with GI complaints. He was found to have a persistent effusion with persistent adenopathy as well as the posterior mediastinal mass which is not significant changed compared to prior CT scans from a few months ago. Recommendations: 1. Pleural effusion: The patient is asymptomatic at this point time. Would not recommend repeat sampling in the absence of clinical symptoms. I did review the pleural fluid studies as well as cytology all of which were somewhat reassuring. In addition the patient had a development of a small pneumothorax after his last thoracentesis so we need to be convinced that this would environmental change analyst before sampling the fluid again. If he remained problematic, could consider referral to thoracic surgery for video-assisted thorascopic evaluation and potential pleurodesis. 2. Mediastinal adenopathy: Not significantly changed compared to prior CT scan from several months ago. The patient has no B symptoms. Would continue to follow clinically and radiographically at this point time as previously outlined by Dr. Wallace 3. Posterior mediastinal mass. This is not amenable to biopsy by pulmonary. It would be amenable to EUS and per GI notes, they plan on considering EUS in the outpatient setting. I think that is reasonable. Outpatient PET scanning may also be considered. 4. Reported COPD. The patient has no signs of exacerbation. He denies cough sputum production wheezing or increased shortness of breath. No indication for steroids at this point time. No indication for antibiotics from a lung standpoint so these will also be discontinued. He can continue to use bronc hodilators as needed From a pulmonary perspective, the patient can be dismissed from the hospital. He can follow-up with his outpatient pulmonary provider as previously scheduled. Feel free to contact us if we can be of additional assistance. History of Present Illness Attending Physician: Janae Menard, DO History of Present Illness Asked by hospitalist to evaluate this patient with known transudate of pleural effusion, lymphocytic predominant and mediastinal adenopathy admitted with GI symptoms. History is obtained from discussion with the patient as well as review the electronic medical record. Patient is an 89-year-old male who was seen by one of my colleagues back in September. He had a thoracentesis performed at that point time which revealed a lymphocytic transudate of effusion. It was thought to be secondary to diastolic dysfunction. Post procedurally, he developed a small apical pneumothorax which resolved without intervention. He has a paraesophageal posterior mediastinal mass which has been followed clinically at this point in time. The patient presented to the emergency room with complaints of postprandial fullness and belching after eating. He did not have any respiratory complaints. He specifically denies any fevers chills night sweats or constitutional symptoms. No shortness of breath, chest pain, cough, or sputum production. He had a CT angiogram performed which demonstrated stable right-sided effusion with a stable mediastinal lesion in the posterior mediastinum adjacent to the esophagus. He has been seen by general surgery for questionable cholecystitis which she was not felt to have. They recommended thoracic surgery consultation which is not available here at our institution. He was also seen by GI who dis cussed performing an outpatient EUS Allergies Allergy/AdvReac Type Severity Reaction Status Date / Time No Known Allergies Allergy Unknown Verified 12/25/20 20:05 Home Medications Medication Instructions Recorded Confirmed Type PreserVision AREDS 1 cap PO BID 09/27/20 12/25/20 History allopurinol 100 mg PO QAM 09/27/20 12/25/20 History aspirin 325 mg PO QAM 09/27/20 12/25/20 History simvastatin 10 mg PO DAILY 09/27/20 12/25/20 History tamsulosin 0.4 mg PO DAILY 09/27/20 12/25/20 History Incruse Ellipta 1 inh INHALATION QPM 11/05/20 12/25/20 History finasteride 5 mg PO DAILY 11/05/20 12/25/20 History gabapentin 100 mg PO BID 11/05/20 12/25/20 History kiqsahpltzxe-ucvorzqx-girmig 1 tab PO QAM 11/05/20 12/25/20 History omega-3 fatty acids-fish oil [Fish 1 cap PO QAM 11/05/20 12/25/20 History Oil] acetaminophen 500 mg PO Q6H PRN 12/25/20 12/25/20 History benzonatate 100 mg PO BID PRN 12/25/20 12/25/20 History furosemide 20 mg PO DAILY 12/25/20 12/25/20 History metoprolol succinate [Toprol XL] 50 mg PO DAILY 12/25/20 12/25/20 History nitroglycerin 0.4 mg SUBLINGUAL DAILY PRN 12/25/20 12/25/20 History omeprazole 20 mg PO DAILY 12/25/20 12/25/20 History polyethylene glycol 3350 [Miralax] 17 g PO DAILY 12/25/20 12/25/20 History simethicone 80 mg PO TID PRN 12/25/20 12/25/20 History Patient History Medical History CAD (coronary artery disease) Carotid stenosis CKD (chronic kidney disease), stage III Compressive atelectasis COPD (chronic obstructive pulmonary disease) History of DVT (deep vein thrombosis) History of malignant neoplasm of parotid gland HTN (hypertension) Surgical History History of coronary artery bypass graft History of right-sided carotid endarterectomy Hx of parotidectomy Family History Other Heart disease Social History Smoking Status: Former smoker Tobacco Type: Cigarettes, Pipe and Cigars Hx Alcohol Use: No Hx Substance Use: No Preferred Language: Bhutanese Communication Ability: Effective Horse Race Timer Required: No Beliefs That Will Affect Care: None marital status: Current Living Situation: Spouse Current Living Situation Comment: Home with Feels Safe at Home: Yes Safety Concerns: Feels Safe At This Time Assistive Devices: Walker Review of Systems Review of Systems: Please refer to admission H&P. No additions or deletions Physical Exam Constitutional: WD/WN, vitals as above Neck: trachea midline, no thyromegaly Respiratory: normal respiratory effort Decreased breath sounds at the right lung base with dullness to percussion Cardiovascular: RRR, no murmur, no edema Gastrointestinal (Abdomen): normal bowel sounds, soft, nontender, no hepatosplenomegaly Musculoskeletal: Extremities: extremities normal to inspection Skin: no rashes, warm and dry Neurologic: Nonfocal exam Lymphatic: no cervical lymphadenopathy Results & Data Results & Data ([facility]) Vital Signs (Past 12 Hours) Vital Signs Temp Pulse Pulse Resp BP BP Pulse Ox 12/26/20 14:46 36.6 C 99 H 20 133/78 95 12/26/20 11:34 36.4 C L 90 20 145/83 H 94 12/26/20 08:51 36.8 C 94 H 20 137/73 93 12/26/20 07:16 79 12/26/20 07:07 92 H 18 93 12/26/20 03:26 36.4 C L 85 18 117/70 92 Laboratory Results 12/26/20 07:14 12/26/20 07:[address] of the chest independently reviewed. CT ANGIOGRAPHY OF THE CHEST, PULMONARY EMBOLUS PROTOCOL CLINICAL HISTORY: Chest pain. Evaluate for pulmonary embolus. COMPARISON STUDY: Chest CT November 05, 2020. Chest radiograph performed earlier today. TECHNIQUE: Following IV administration of 68 mL of Optiray, helical axial images of the chest were obtained utilizing the pulmonary embolus protocol. Maximal intensity projections and sagittal and coronal reformats were viewed on an independent 3D workstation. IV contrast was administered without complication. Automated exposure control was utilized for the study. A dose lowering technique was utilized adhering to the principles of ALARA. CT DOSE: 491.40 mGy.cm FINDINGS: No pulmonary emboli are identified. Note is made of moderate cardiome giovanni and coronary artery calcification. There is no pericardial effusion. There are postoperative findings consistent with median sternotomy and bypass grafting. Multiple partially calcified mediastinal and bilateral hilar lymph nodes are unchanged. These suggest a granulomatous process. A 3.4 x 2 cm posterior mediastinal mass-like lesion adjacent to the distal esophagus on axial image 67 of 256 is similar to prior exam. This is indeterminate. A persistent moderate right pleural effusion is noted. This has slightly decreased in size. A left pleural fusion is decreased in size. Moderate right lower lobe airspace opacity with slight loss is noted. This favors atelectasis. Mild groundglass opacities are noted within the lungs. There is mild interlobular septal thickening. There is no pneumothorax. IMPRESSION: 1. No pulmonary emboli identified. 2. Persistent moderate right pleural effusion, slightly decreased since prior exam. Associated segmental right lower lobe airspace opacity which favors atelectasis. 3. 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 4. Evidence for a previous granulomatous process. PG Care Time/CCT Total # of Minutes Spent Total Time Spent with Patient: Total time spent is greater than 50% in coordination of care (as documented) at patient's floor/unit and/or counseling patient: Coding Level of Care Code 00640 Initial Inpt Care Lvl 3 Diagnoses Pleural effusion J90 Abnormal CT scan of lung R91.8 Time Spent (min) 45
--- NOTE | 2020-12-26 15:36 | Hospitalist Progress Note ---
Date of Service December 26, 2020 Assessment & Plan (1) COPD exacerbation: (2) Hypoxia: This is an 89yo M with a PMH of CAD s/p CABG, HTN, HLD, carotid artery stenosis status post right endarterectomy, COPD, history of tobacco abuse, CKD stage III, thrombocytopenia history of parotid gland cancer (s/p parotidectomy and radiation and other medical problems listed below who presents with abdominal bloating, gas, inability to burp x2 months. Pt with mild COPD exacerbation and hypoxia on room air in ED, O2 sats as low as 84% but transient pt with wheezing, increased sputum production and hypoxia admit to tele titrate O2 as able maintain sats 88-92% IV solumedrol per Dr. Carter IV antibiotics per Dr. Carter Pulmonary toilet with nebs, incentive spirometer Continue Incruse Of note patient with pneumothorax 12/10, small, resolved without intervention Chest imaging consistent with persistent pleural effusion, patient does follow with pulmonary [facility] continue diuretics (3) Postprandial bloating: pt c/o of postprandial bloating, gas and inability to burp seen and evaluated by KAM Magana on 12/24 started on miralax 17g daily and simethicone prn try to regulate BMS consider biliary colic as etiology, CT reveals cholelithasis obtain RUQ US (4) CHF (congestive heart failure): (5) Pleural effusion: pt with chronic diastolic chf no acute exac, euvolemic weight stable at 191.6, dry daily weights, strict I and O continue metoprolol, lasix Chest CTA continues to reveal R pleural effusion, mild improvement monitor (6) CAD (coronary artery disease): H/o CABG. No chest pain or acute EKG changes. Continue beta bre, statin, aspirin (7) HTN (hypertension): bp controlled in ED continue metoprolol and lasix recently enalapril d/c in setting of dizziness (8) CKD (chronic kidney disease), stage III: baseline cr 1.3 bun 20, cr 1.35 monitor bmp, avoid nephrotoxic agents Chronic Thrombocytopenia plt stable monitor if on chemical vte prophylaxis (9) DVT prophylaxis: per Dr. Carter addendum Dispo: Tele FULL CODE PCP: Trevor Pt was seen and examined in collaboration with Dr. Carter, please see addendum for FULL details regarding assessment and treatment plan (10) Mediastinal mass: (11) Belching: Admission and Anticipated Discharge Date Admission Date: December 25, 2020 Results & Data Results & Data ([facility]) Vital Signs (Past 12 Hours) Vital Signs Temp Pulse Pulse Resp BP BP Pulse Ox 12/26/20 15:21 111 H 12/26/20 14:46 36.6 C 99 H 20 133/78 95 12/26/20 11:34 36.4 C L 90 20 145/83 H 94 12/26/20 08:51 36.8 C 94 H 20 137/73 93 12/26/20 07:16 79 12/26/20 07:07 92 H 18 93 Laboratory Results Short CBC 12/25/20 12/26/20 Range/Units 17:22 07:14 WBC 5.43 3.01 L (4.8-10.8) K/uL Hgb 15.4 15.1 (14.0-18.0) g/dL Hct 46.7 45.9 (42-52) % Plt Count 115 L 114 L (130-400) K/uL BMP 12/25/20 12/26/20 17:22 07:14 Sodium 138 141 Potassium 3.8 4.2 Chloride 102 104 Carbon Dioxide 31 29 BUN 20 H 19 H Creatinine 1.35 1.16 Glucose 88 126 H Calcium 9.1 9.3 Cardiac Enzymes 12/25/20 Range/Units 17:22 Troponin I 0.028 (0-0.045) ng/ml Liver Function 12/25/20 12/26/20 Range/Units 17:22 07:14 Total Bilirubin 0.6 0.8 (0.2-1) mg/dl Direct Bilirubin 0.2 (0-0.2) mg/dl AST 23 20 (15-37) U/L ALT 20 18 (12-78) U/L Alkaline Phosphatase 143 H 127 H (45-117) U/L Albumin 3.4 3.1 L (3.4-5.0) gm/dl Medications Administered Current Inpatient Medications Acetaminophen (Acetaminophen 325 Mg Tab) 650 mg PO Q4H PRN PRN Reason: Pain or Fever Stop: 01/24/21 22:37 Allopurinol ([facility] 100 Mg Tab) [facility]: 01/25/21 08:59 Last Admin: 12/26/20 12:54 Dose: Not Given Documented by: Aspirin (Aspirin 325 Mg Ectab) 325 mg PO QAM [facility] Stop: 01/25/21 08:59 Last Admin: 12/26/20 12:54 Dose: Not Given Documented by: Finasteride (Finasteride 5 Mg Tab) 5 mg PO DAILY [facility] Stop: 01/25/21 08:59 Last Admin: 12/26/20 12:54 Dose: Not Given Documented by: Gabapentin (Gabapentin 100 Mg Cap) 100 mg PO BID [facility] Stop: 01/25/21 00:44 Last Admin: 12/26/20 09:23 Dose: 100 mg Documented by: Potassium Chloride/Sodium Chloride (Normal Saline W/20 Meq Kcl) 20 meq in 1,000 mls @ 40 mls/hr IV .Q24H [facility] Stop: 01/24/21 23:14 Last Admin: 12/26/20 00:23 Dose: 40 mls/hr Documented by: Promethazine HCl 12.5 mg/ (Sodium Chloride) 50.5 mls @ 202 mls/hr IV Q6H PRN PRN Reason: Nausea And Vomiting Stop: 01/24/21 22:37 Ipratropium Jewell (Ipratropium Jewell Neb Soln 0.02% 2.5 Ml Vial) 0.5 mg INH Q6R PRN PRN Reason: Shortness Of Breath Or Wheezing Stop: 01/25/21 00:59 Levalbuterol HCl (Levalbuterol 1.25mg/0.5ml Neb) 1.25 mg INH Q6R PRN PRN Reason: Shortness Of Breath Or Wheezing Stop: 01/25/21 00:59 Metoprolol Succinate (Metoprolol Succ 50mg Ext Rel Tab) 50 mg PO DAILY [facility] Stop: 01/25/21 08:59 Last Admin: 12/26/20 12:54 Dose: Not Given Documented by: Morphine Sulfate (Morphine Sulfate 2 Mg/Ml Carp) 2 mg IV Q3H PRN PRN Reason: Pain Stop: 01/08/21 22:37 Multivitamins/Minerals (Cerovite Adv Formula Tab) 1 tab PO BID [facility] Stop: 01/25/21 08:59 Last Admin: 12/26/20 09:25 Dose: 1 tab Documented by: Pantoprazole Sodium (Pantoprazole 40 Mg Tab) 40 mg PO DAILY [facility] Stop: 01/25/21 08:59 Last Admin: 12/26/20 12:55 Dose: Not Given Documented by: Polyethylene Glycol (Polyethylene (Miralax) 17 Gm Pack) 17 gm PO DAILY [facility] Stop: 01/25/21 08:59 Last Admin: 12/26/20 12:55 Dose: Not Given Documented by: Senna/Docusate Sodium (Docusate Sodium/Senna 50/8.6mg Tab) 1 tab PO QAM [facility] Stop: 01/25/21 08:59 Last Admin: 12/26/20 12:54 Dose: Not Given Documented by: Simvastatin (Simvastatin 10 Mg Tab) 10 mg PO DAILY [facility] Stop: 01/25/21 08:59 Last Admin: 12/26/20 12:55 Dose: Not Given Documented by: Tamsulosin HCl (Tamsulosin Hcl 0.4 Mg Cap) 0.4 mg PO DAILY [facility] Stop: 01/25/21 08:59 Last Admin: 12/26/20 12:55 Dose: Not Given Documented by: Tramadol HCl (Tramadol Hcl 50 Mg Tablet) 25 - 50 mg PO Q4H PRN PRN Reason: Pain Stop: 01/24/21 22:37
[2020-12-26 16:56] LABS: iSTAT Creatinine 0.9 mg/dl (0.6-1.3); iSTAT Hemoglobin 12.2 g/dl (14.0-18.0); iSTAT Ionized Calcium 0.96 mmol/l (1.12-1.32)
--- NOTE | 2020-12-26 18:16 | Discharge Summary ---
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 Of significance patient hospitalized 10/2020 secondary to acute respiratory failure in setting of acute on chronic diastolic heart failure in setting of hypertensive urgency. Patient was discharged home with increased metoprolol 50 mg daily, resumed enalapril 5 mg daily and Lasix 20 mg daily. He has been following closely with PCP Dr. Murray. Since discharge patient has been complaining of dizziness and therefore his enalapril was discontinued. Dizziness has since improved. Since discharge he admits to following daily Lasix and monitoring his weight. He has been maintaining at 191.6 pounds. Patient did have a small right pneumothorax at end of November that was followed and resolved spontaneously per imaging. He comes in today because of complaints of increased abdominal bloating, gas, "I just cannot stand it." He states every time he eats or drinks anything his abdomen becomes very distended and very bloated. This will last for several hours. He feels like he has to pass gas or burp but is unable to. He does complain of being more on the constipated side however his last bowel movement was this morning. His bowel movement was normal for him. Prior to that his last bowel movement was 3 days ago. He has not lost any weight despite bloating but states, "I do not want to eat because of the bloating sensation." He states over the last 2 months he feels the bloating has been getting worse. He was seen and evaluated by GI in clinic yesterday who prescribed MiraLAX once daily as well as simethicone 80 mg 3 times daily as needed. He did start this and states, "maybe I just did not give it enough time to work. " He denies any fever, chills, sweats, lightheadedness, dizziness, syncope, chest pain, palpitations, shortness of breath, nausea, vomiting, abdominal pain, dysuria, increased urgency or frequency with urination, melena, hematochezia. Patient does have a chronic cough in setting of COPD. He feels that he is producing more sputum and it is, "nasty looking." He describes it as a reza discolored sputum. He does have a wheeze, but feels this is chronic. Unfortunately during patient's ER evaluation he did become mildly hypoxic with O2 saturations in the 80s requiring oxygen saturation to maintain O2 greater than 92%. For this he is recommended for admission. He underwent chest CTA which was negative for PE but did reveal a persistent moderate right pleural effusion, slightly decreased from prior exam with associated right lower lobe airspace opacity consistent with atelectasis. 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 CT abdomen pelvis was negative for acute process but did reveal extensive colonic diverticulosis as well as cholelithiasis. Admission Exam Per Admitting Provider Constitutional: WD/WN, elderly, male, hard of hearing, vitals as above, NAD, sitting up in bed, pleasant, conversing easily Head: Normocephalic, Atraumatic Eyes: PERRL, conjunctivae normal, anicteric sclerae ENMT: Right hearing aid device in place, external ear and nose normal, oropharynx normal Neck: trachea midline, no thyromegaly normal visual inspection Respiratory: normal respiratory effort, lungs clear to auscultation, bilateral expiratory wheeze with prolonged expiratory phase, no rales, rhonchi. Normal insp/exp effort, no accessory muscle use Cardiovascular: RRR, no murmur, no edema Vessels: no JVD or carotid bruit Chest: normal inspection of chest Abdomen: Hyperactive bowel sounds, soft, nontender, no hepatosplenomegaly Musculoskeletal: no cyanosis or clubbing, extremities motor strength 5/5 Skin: no rashes, warm and dry normal turgor Neurologic: PERRL, EOMI, accommodation nl, no face palsy, no dysarthria CN's II-XI intact bilaterally and moves all extremities Psychiatric: A+Ox3, euthymic affect Lymphatic: no cervical or axillary lymphadenopathy : deferred Principal Diagnosis post prandial bloating pleural effusion mediastinal lymphadenopathy mediastinal mass COPD hypoxia-resolved. Discharge Exam CONSTITUTIONAL: WNWD, vitals as above, generally well-appearing EYES: normal conjunctivae, no scleral icterus ENT: external ear and nose normal, MMM NECK: trachea midline RESPIRATORY: clear to auscultation bilaterally, no crackles, rales or wheezes, normal respiratory effort CARDIOVASCULAR: regular rate and rhythm, S1 and 2 heard without murmurs, gallops or rubs, no JVD, no peripheral edema GASTROINTESTINAL: soft, nontender, nondistended, no guarding. MUSCULOSKELETAL: strength 5/5 throughout, head is normocephalic and atraumatic SKIN: warm and dry NEUROLOGIC: CN 2-12 grossly intact, no sensory deficit, normal cognition, normal speech, no gross focal deficits. PSYCHIATRIC: alert cooperative and oriented to person, place and time. Discharge Data Allergies Allergy/AdvReac Type Severity Reaction Status Date / Time No Known Allergies Allergy Unknown Verified 12/29/20 16:19 Consultations 12/25/20 19:43 ED Decision to Admit Stat 12/26/20 10:13 Consult General Surgery Routine 12/26/20 10:51 Consult Gastroenterology Routine 12/26/20 13:01 Consult Pulmonology Routine Ordered Studies Laboratory Results WBC 3.01 K/uL (4.8-10.8) L 12/26/20 07:14 RBC 4.61 M/uL (4.7-6.1) L 12/26/20 07:14 Hgb 15.1 g/dL (14.0-18.0) 12/26/20 07:14 POC Hgb 12.2 g/dl (14.0-18.0) L 12/25/20 17:44 Hct 45.9 % (42-52) 12/26/20 07:14 POC Hct 36 % (42-52) L 12/25/20 17:44 MCV 99.6 fL (80-100) 12/26/20 07:14 MCH 32.8 pg (25-34) 12/26/20 07:14 MCHC 32.9 g/dL (32-36) 12/26/20 07:14 RDW Std Deviation 51.8 fL (36.4-46.3) H 12/26/20 07:14 RDW Coeff of Hakeem 14.4 % (11.5-14.5) 12/26/20 07:14 Plt Count 114 K/uL (130-400) L 12/26/20 07:14 MPV 12.1 fL (7.4-10.4) H 12/26/20 07:14 Immature Gran % (Auto) 0.0 % 12/26/20 07:14 Neut % (Auto) 85.4 % 12/26/20 07:14 Lymph % (Auto) 12.0 % 12/26/20 07:14 Barbour % (Auto) 2.3 % 12/26/20 07:14 Eos % (Auto) 0.3 % 12/26/20 07:14 Baso % (Auto) 0.0 % 12/26/20 07:14 Neut # (Auto) 2.57 K/uL (1.4-6.5) 12/26/20 07:14 Lymph # (Auto) 0.36 K/uL (1.2-3.4) L 12/26/20 07:14 Barbour # (Auto) 0.07 K/uL (0.11-0.59) L 12/26/20 07:14 Eos # (Auto) 0.01 K/uL (0-0.5) 12/26/20 07:14 Baso # (Auto) 0.00 K/uL (0-0.2) 12/26/20 07:14 Immature Gran # (Auto) 0.00 K/uL (0.00-0.02) 12/26/20 07:14 PT 11.5 Seconds (9.0-12.0) 12/25/20 17:22 INR 1.1 (0.9-1.1) 12/25/20 17:22 APTT 24.0 Seconds (21.0-31.0) 12/25/20 17:22 PTT Ratio 0.9 12/25/20 17:22 VBG pH 7.35 (7.36-7.41) L 12/25/20 19:45 VBG pCO2 57 mmHg (38-50) H 12/25/20 19:45 VBG pO2 32 mmHg 12/25/20 19:45 VBG HCO3 31 mmol/L 12/25/20 19:45 VBG O2 Saturation 62.5 % 12/25/20 19:45 VBG Base Excess 3.4 mEq/L 12/25/20 19:45 Barometric Pressure 731.0 mm/Hg 12/25/20 19:45 POC Sodium 144 mmol/L (135-144) 12/25/20 17:44 Sodium 141 mmol/L (136-145) 12/26/20 07:14 POC Potassium 3.0 mmol/L (3.3-5.0) L 12/25/20 17:44 Potassium 4.2 mmol/L (3.5-5.1) 12/26/20 07:14 POC Chloride 104 mmol/L (101-112) 12/25/20 17:44 Chloride 104 mmol/L (98-107) 12/26/20 07:14 Carbon Dioxide 29 mmol/L (21-32) 12/26/20 07:14 POC Total CO2 26 mmol/L (24-31) 12/25/20 17:44 Anion Gap 8.0 (3-11) 12/26/20 07:14 POC Anion Gap 17.0 mmol/L (16-25) 12/25/20 17:44 POC BUN 17 mg/dl (7-18) 12/25/20 17:44 BUN 19 mg/dl (7-18) H 12/26/20 07:14 Creatinine 1.16 mg/dl (0.6-1.4) 12/26/20 07:14 POC Creatinine 0.9 mg/dl (0.6-1.3) 12/25/20 17:44 Est Cr Clr Drug Dosing 47.7 ml/min 12/26/20 07:14 Est GFR ( Amer) 64.4 12/26/20 07:14 Est GFR (Non-Af Amer) 55.5 12/26/20 07:14 BUN/Creatinine Ratio 16.3 (10-20) 12/26/20 07:14 Glucose 126 mg/dl (70-99) H 12/26/20 07:14 POC Glucose (other) 76 mg/dl (70-99) 12/25/20 17:44 Calcium 9.3 mg/dl (8.5-10.1) 12/26/20 07:14 POC Ioniz Calcium Elicia 0.96 mmol/l (1.12-1.32) L 12/25/20 17:44 Magnesium 2.0 mg/dl (1.8-2.4) 12/25/20 17:22 Total Bilirubin 0.8 mg/dl (0.2-1) 12/26/20 07:14 Direct Bilirubin 0.2 mg/dl (0-0.2) 12/25/20 17:22 AST 20 U/L (15-37) 12/26/20 07:14 ALT 18 U/L (12-78) 12/26/20 07:14 Alkaline Phosphatase 127 U/L (45-117) H 12/26/20 07:14 Troponin I 0.028 ng/ml (0-0.045) 12/25/20 17:22 NT-Pro-B Natriuret Pep 1674 pg/ml (0-1800) 12/25/20 17:22 Total Protein 6.9 gm/dl (6.4-8.2) 12/26/20 07:14 Albumin 3.1 gm/dl (3.4-5.0) L 12/26/20 07:14 Globulin 3.8 gm/dl (2.5-4.0) 12/26/20 07:14 Albumin/Globulin Ratio 0.8 (0.9-2) L 12/26/20 07:14 Lipase 131 U/L (73-393) 12/25/20 17:22 COVID-19 Eval Order CovFluRsv at [facility] 12/25/20 19:05 SARS-CoV-2 (PCR) NEGATIVE (Negative) 12/25/20 19:05 Influenza Type A (PCR) Negative (Neg) 12/25/20 19:05 Influenza Type B (PCR) Negative (Neg) 12/25/20 19:05 RSV (RT-PCR) Negative (Neg) 12/25/20 19:05 Impressions Chest X-Ray 12/25/20 17:08 XR chest 1V portable CLINICAL HISTORY: Abdominal pain. COMPARISON STUDY: Chest radiograph December 10, 2020. FINDINGS: There are median sternotomy wires. No pneumothorax is present. Cardiomegaly is noted without evidence for pulmonary edema. Small right and trace left pleural effusions persist. Right basilar opacity has slightly increased. IMPRESSION: 1. Small right pleural effusion with right basilar opacity, increased since prior exam. This could reflect consolidation or atelectasis. Radiographic follow-up is recommended. 2. Trace left pleural effusion. ACT 112: Negative or not required by law. Electronically signed by: Omero Reno M.D. 12/25/2020 5:34 PM Abdomen/Pelvis CT 12/25/20 17:23 CT OF THE ABDOMEN AND PELVIS WITH CONTRAST CLINICAL HISTORY: Abdominal pain. COMPARISON STUDY: Right upper quadrant ultrasound June 10, 2011. TECHNIQUE: Following IV administration of 89 mL of Optiray, axial images of the abdomen and pelvis were obtained from the lung bases to the proximal femurs. Images were reviewed in the axial, sagittal, and coronal planes. IV contrast was administered without complication. Automated exposure control was utilized for the study. A dose lowering technique was utilized adhering to the principles of ALARA. CT DOSE: 598.24 mGy.cm FINDINGS: A moderate right pleural effusion with right lower and middle lobe segmental atelectasis is partially imaged on this examination. No pneumatosis, free air or portal venous gas is present. Lateral segment hepatic lesion favors a cyst. There are gallstones within the gallbladder. There is no evidence for acute cholecystitis. There is no biliary or pancreatic ductal dilatation. There is no peripancreatic or pericholecystic infiltration. There is moderate bilateral renal thinning. There is no hydronephrosis. Several renal cysts are noted. There are multiple subcentimeter renal lesions which are too small to characterize. Prominence of the left renal pelvis is noted. This suggest an extrarenal pelvis. Prostate is enlarged. There is extensive colonic diverticulosis without evidence for acute diverticulitis. There is no evidence for a bowel obstruction. The appendix is normal. There is extensive plaque of the abdominal aorta. No acute fracture or suspicious lesion is identified within the visualized skeletal structures. IMPRESSION: 1. No acute process within the abdomen or pelvis. 2. Cholelithiasis. No evidence for acute cholecystitis. 3. Extensive colonic diverticulosis without evidence for acute diverticulitis. 4. Partially visualized moderate right pleural effusion, mildly decreased in prior chest CT. ACT 112: Negative or not required by law. Electronically signed by: Omero Reno M.D. 12/25/2020 7:16 PM Chest CTA 12/25/20 18:42 CT ANGIOGRAPHY OF THE CHEST, PULMONARY EMBOLUS PROTOCOL CLINICAL HISTORY: Chest pain. Evaluate for pulmonary embolus. COMPARISON STUDY: Chest CT November 05, 2020. Chest radiograph performed earlier today. TECHNIQUE: Following IV administration of 68 mL of Optiray, helical axial images of the chest were obtained utilizing the pulmonary embolus protocol. Maximal intensity projections and sagittal and coronal reformats were viewed on an independent 3D workstation. IV contrast was administered without complication. Automated exposure control was utilized for the study. A dose lowering technique was utilized adhering to the principles of ALARA. CT DOSE: 491.40 mGy.cm FINDINGS: No pulmonary emboli are identified. Note is made of moderate cardiomegaly and coronary artery calcification. There is no pericardial effusion. There are postoperative findings consistent with median sternotomy and bypass grafting. Multiple partially calcified mediastinal and bilateral hilar lymph nodes are unchanged. These suggest a granulomatous process. A 3.4 x 2 cm posterior mediastinal mass-like lesion adjacent to the distal esophagus on axial image 67 of 256 is similar to prior exam. This is indeterminate. A persistent moderate right pleural effusion is noted. This has slightly decreased in size. A left pleural fusion is decreased in size. Moderate right lower lobe airspace opacity with slight loss is noted. This favors atelectasis. Mild groundglass opacities are noted within the lungs. There is mild interlobular septal thickening. There is no pneumothorax. IMPRESSION: 1. No pulmonary emboli identified. 2. Persistent moderate right pleural effusion, slightly decreased since prior exam. Associated segmental right lower lobe airspace opacity which favors atelectasis. 3. 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 4. Evidence for a previous granulomatous process. ACT 112: Negative or not required by law. Electronically signed by: Omero Reno M.D. 12/25/2020 7:36 PM Hospital Course (1) Postprandial bloating: (2) Pleural effusion: (3) Mediastinal mass: 89 yo M who presented with post-prandial bloating and abdominal discomfort relieved by defecation over the past few weeks. 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 GI was consulted and saw him on 12/26. The symptoms were attributed to constipation and continuation of daily Miralax, which was started already by the outpatient provider, was recommended. An outpatient EGD was also recommended to rule out gastric outlet obstruction with EUS/biopsy of the known mediastinal mass. Simethicone was also prescribed for relief. General surgery saw him as cholelithiasis was present and felt there was no surgical indication for cholecystectomy. Pulmonology saw him also as he was on a low amount of oxygen supplementation initially. As he was asymptomatic and had previously developed a small pneumothorax after his last thoracentesis, it was not convincing that draining or sampling the effusion would exchange engineer and would only increase risk of a problem. COPD was thought to be stable, and initial antibiotics which were started out of concern for exacerbation were stopped. He underwent a two-step evaluation with respiratory therapy to ensure he was able to go home without oxygen, which was negative. At time of discharge he was feeling better with respect to his symptoms and was tolerating PO without much issue. He was sent home in stable condition with close primary care followup recommended. Total Time Total Time Spent Total Time Spent (In Minutes): 60 Total Time Includes: Examination of the Patient, Discharge Planning, Medication Reconciliation and Communication With Other Providers Discharge Plan Discharge Items Patient Disposition: Home - Self-Care Reason For Visit: ANEMIA, GI BLEED Discharge Diagnosis: post prandial bloating pleural effusion mediastinal lymphadenopathy mediastinal mass COPD hypoxia-resolved. Condition on Discharge: Good Activity: Resume your previous activity Non-emergency contact: Primary Care Provider, Data Modeling Specialist and Dado Operator Call non-emergency contact if: you have any medication questions and your symptoms worsen Follow-up/Referrals: Pritesh Murray, [Primary Care Provider] - Diet: Lactose Intolerant Addtl Attending Provider Instructions: Please take all medications as instructed on discharge list below. It is recommended that you stick to a lactose-free diet for at least two weeks time to help wtih your symptoms of bloating and fullness. This means no milk, butter, cheese, yogurt, pudding or other dairy products. [place] milk or coconut milk are fine to use as a substitute. Please follow-up with the [facility] Gastroenterology (GI) team in the next month for an upper endoscopy. Please contact the clinic early next week to set this up. This will be important to rule out any gastric outlet obstruction and to obtain biopsy samples of your mediastinal mass and lymph nodes. Please note, a PET scan may also be ordered to work up your mediastinal mass. Please discuss this further with your primary care provider of follow-up. It is recommended that you follow-up with your primary care provider within one week of discharge to coordinate next steps in care and to ensure you are doing well after going home. You were found to have a persistent pleural effusion on chest imaging. A consolidation accountant from [facility] saw you in the hospital and recommended against drainage of this at this time. Please follow-up with your lung specialist within the next 1-2 months for monitoring of this effusion. It was a pleasure taking care of you! Please call if you have any questions or problems. You can reach a [facility] hospitalist on duty at [facility] 24 hours a day by calling [phone]. Take care of yourself. Janae Menard DO [facility] Hospitalist Pending Studies at Discharge: No Stand-Alone Forms: My [facility] Medications and DC Order Prescriptions: Continued simvastatin 10 mg tablet 10 mg PO DAILY RF: 0 allopurinol 100 mg tablet 100 mg PO QAM RF: 0 tamsulosin 0.4 mg capsule 0.4 mg PO DAILY RF: 0 aspirin 325 mg Tablet 325 mg PO QDL RF: 0 PreserVision AREDS [id number] Capsule 1 cap PO BID RF: 0 gabapentin 100 mg capsule 100 mg PO BID RF: 0 finasteride 5 mg tablet 5 mg PO DAILY RF: 0 Incruse Ellipta 62.5 mcg/actuation blister with device 1 inh inhalation QPM RF: 0 [id number] Tablet 1 tab PO QAM RF: 0 omega-3 fatty acids-fish oil [Fish Oil] 360-1,200 mg Capsule 1 cap PO QAM RF: 0 omeprazole 20 mg capsule,delayed release(DR/EC) 20 mg PO QAM RF: 0 metoprolol succinate [Toprol XL] 50 mg tablet extended release 24 hr 50 mg PO QAM RF: 0 acetaminophen 500 mg Tablet 500 mg PO Q6H PRN (Reason: Pain) RF: 0 benzonatate 100 mg Capsule 100 mg PO BID PRN (Reason: Cough) RF: 0 nitroglycerin 0.4 mg Tablet, Sublingual 0.4 mg sublingual DAILY PRN (Reason: Chest Pain) RF: 0 polyethylene glycol 3350 [Miralax] 17 gram Powder In Packet 17 g PO QAM RF: 0 simethicone 80 mg Tablet 80 mg PO TID PRN (Reason: gas) RF: 0 No Action furosemide 20 mg tablet 40 mg PO QAM 30 Days Qty: 60 RF: 0 Discharge Orders: Discharge Order (Routine); Ordered 12/26/20 Ordered By: Janae Menard Admission Data Admit Date/Time: 12/25/20 21:28 Attending Provider: Janae Menard Admit Provider: Merrill Carter Primary Care Provider: Pritesh Murray Other Providers: Merrill Carter ; Phong Proctor ; Andreia Mcdaniel ; Katelynn Epstein ; Saeed Soliman ; Shimon Denton ; Silvana Melton ; Cynthia Wall ; Aiden Phan Jr ; Waldeamr Leonard ; Juan Montemayor ; Manasa Rodriguez ; Jami Townsend ; Delano Morton Other Interventions: Discharge Summary Assessment (RN) Last Done: 12/26/20 18:45
== END 2020-12-26 19:26 | disposition home or self-care (01) | DRG 190 ==
LOC: ED 16:56 → SUATTDRO 21:28 → 2W 21:28

== ENCOUNTER 2020-12-29 14:42 | Inpatient (IN) ==
[2020-12-29] MEDS ORDERED: SODIUM CHLORIDE 0.9% 500 ML IV STA (15:19)
--- NOTE | 2020-12-29 15:26 | Emergency Department Note ---
History of Present Illness General Chief complaint: GI Assessment Stated complaint: BLOATED Time Seen by Provider: 12/29/20 15:09 Source: patient Mode of arrival: ambulatory Limitations: no limitations History of Present Illness Provider complaint: Bloating, weight loss Maximum Pain Intensity: 5 This is an 89-year-old male who presents to the ED with a chief complaint of ongoing bloating, decreased appetite and weight loss. The patient was admitted to the hospital on the sixth of this month, 4 days ago for the same. He was observed overnight and discharged the next day without any specific therapy. His work-up included a CT scan of the abdomen pelvis as well as a CT scan of the chest. There is no acute intra-abdominal process nor an acute intrathoracic process. He has an appointment to follow-up with GI on February 25 but states that he is not getting better and is getting worse. He called his PCP who told him to come back to the emergency room for treatment. Eating and drinking make his symptoms worse. Home Medications Medication Instructions Recorded Confirmed Type PreserVision AREDS 1 cap PO BID 09/27/20 12/29/20 History allopurinol 100 mg PO QAM 09/27/20 12/29/20 History aspirin 325 mg PO QDL 09/27/20 12/29/20 History simvastatin 10 mg PO DAILY 09/27/20 12/29/20 History tamsulosin 0.4 mg PO DAILY 09/27/20 12/29/20 History Incruse Ellipta 1 inh INHALATION QPM 11/05/20 12/29/20 History finasteride 5 mg PO DAILY 11/05/20 12/29/20 History gabapentin 100 mg PO BID 11/05/20 12/29/20 History mdcoprqeonek-wgdfmihi-klfejg 1 tab PO QAM 11/05/20 12/29/20 History omega-3 fatty acids-fish oil [Fish 1 cap PO QAM 11/05/20 12/29/20 History Oil] acetaminophen 500 mg PO Q6H PRN 12/25/20 12/29/20 History benzonatate 100 mg PO BID PRN 12/25/20 12/29/20 History furosemide 20 mg PO QAM 12/25/20 12/29/20 History metoprolol succinate [Toprol XL] 50 mg PO QAM 12/25/20 12/29/20 History nitroglycerin 0.4 mg SUBLINGUAL DAILY PRN 12/25/20 12/29/20 History omeprazole 20 mg PO QAM 12/25/20 12/29/20 History polyethylene glycol 3350 [Miralax] 17 g PO QAM 12/25/20 12/29/20 History simethicone 80 mg PO TID PRN 12/25/20 12/29/20 History Allergies Allergy/AdvReac Type Severity Reaction Status Date / Time No Known Allergies Allergy Unknown Verified 12/29/20 16:19 Past Med/Surg History Medical History (Updated 12/29/20 @ 18:22 by Richmond Rodriguez DO) Abdominal pain Carotid stenosis COPD (chronic obstructive pulmonary disease) History of DVT (deep vein thrombosis) History of malignant neoplasm of parotid gland Pleural effusion Surgical History History of coronary artery bypass graft History of right-sided carotid endarterectomy Hx of parotidectomy Family History Other Heart disease Social History Smoking Status: Former smoker Tobacco Type: Cigarettes Hx Alcohol Use: No Hx Substance Use: No Preferred Language: Taiwanese Communication Ability: Effective Rn X Ray Required: No Beliefs That Will Affect Care: None marital status: Current Living Situation: Spouse Current Living Situation Comment: Home with Feels Safe at Home: Yes Assistive Devices: Walker Review of Systems A total of 10 systems reviewed and were otherwise negative Physical Exam Vital Signs Vital Signs - 24 hr 12/29/20 14:55 12/29/20 16:22 12/29/20 18:00 Temperature 36.8 C Temperature Source Temporal Artery Scan Pulse Rate 95 H 81 Pulse Rate [Apical] 83 Pulse Rate from SpO2 Sensor 81 Pulse Rhythm [Apical] Regular Respiratory Rate 18 22 27 H Respiratory Effort / Characteristics Non-Labored Spontaneous Non-Labored Respiratory Depth Normal Normal Respiratory Pattern Regular Regular Blood Pressure 110/67 169/95 H Blood Pressure [Left Arm] 153/95 H Blood Pressure Mean 81 119 Blood Pressure Mean [Left Arm] 114 Blood Pressure Position Sitting Blood Pressure Position [Left Arm] Sitting Pulse Oximetry 93 92 93 Oxygen Delivery Method Room Air Room Air Sepsis Recent Fever Within 48 Hours No Sepsis New/Unexplained Change in Mental Status N/A Sepsis Action Taken by Nursing No Action Required Oxygen Flow Rate - Titration Pulse Oximetry Post Tiitration 12/29/20 18:13 Temperature Temperature Source Pulse Rate Pulse Rate [Apical] Pulse Rate from SpO2 Sensor Pulse Rhythm [Apical] Respiratory Rate Respiratory Effort / Characteristics Respiratory Depth Respiratory Pattern Blood Pressure Blood Pressure [Left Arm] Blood Pressure Mean Blood Pressure Mean [Left Arm] Blood Pressure Position Blood Pressure Position [Left Arm] Pulse Oximetry 86 L Oxygen Delivery Method Room Air Sepsis Recent Fever Within 48 Hours Sepsis New/Unexplained Change in Mental Status Sepsis Action Taken by Nursing Oxygen Flow Rate - Titration 2 Pulse Oximetry Post Tiitration 91 CONSTITUTIONAL/VITAL SIGNS: Reviewed / noted above. GENERAL: Non-toxic in appearance. INTEGUMENTARY: Warm, dry, and [place]. HEAD: Normocephalic. EYES: without scleral icterus or trauma. ENT/OROPHARYNX: clear and moist. LYMPHADENOPATHY/NECK: Is supple without lymphadenopathy or meningismus. RESPIRATORY: Lungs clear and equal. CARDIOVASCULAR: Regular rate and rhythm. GI/ABDOMEN: Soft and nontender. No organomegaly or pulsatile mass. No rebound or guarding. Normal bowel sounds. EXTREMITIES: Warm and well perfused. BACK: No CVA tenderness. NEUROLOGICAL: Intact without focal deficits. PSYCHIATRIC: normal affect. MUSCULOSKELETAL: Normally developed with good muscle tone. TRIAGE NURSING DOCUMENTATION REVIEWED. Course Administered Medications Discontinued Medications Sodium Chloride (Nss) 500 mls @ 999 mls/hr IV .Q31M STA Stop: 12/29/20 15:49 Last Infusion: 12/29/20 16:20 Dose: 0 mls/hr Documented by: [id number] Admin: 12/29/20 15:49 Dose: 999 mls/hr Documented by: [id number] Medical Decision Making Differential Diagnosis Differential considered: pancreatitis, hepatitis, acute cholecystitis, AAA, UTI, pyelonephritis, kidney stones, appendicitis, diverticulitis, shingles, bowel obstruction, mesenteric ischemia, intussusception,hernia,. Medical Records Attestation: I reviewed the patient's medical records. Home Medications Current Medication List: was personally reviewed by me Laboratory Data Attestation: I reviewed the patient's lab results. Result diagrams: 12/29/20 15:35 12/29/20 15:35 Lab Results 12/29/20 12/29/20 12/29/20 Range/Units 15:35 15:35 16:30 WBC 5.12 (4.8-10.8) K/uL RBC 4.79 (4.7-6.1) M/uL Hgb 15.9 (14.0-18.0) g/dL Hct 47.8 (42-52) % MCV 99.8 (80-100) fL MCH 33.2 (25-34) pg MCHC 33.3 (32-36) g/dL RDW Std Deviation 52.1 H (36.4-46.3) fL RDW Coeff of Hakeem 14.3 (11.5-14.5) % Plt Count 118 L (130-400) K/uL MPV 11.9 H (7.4-10.4) fL Immature Gran % (Auto) 0.0 % Neut % (Auto) 71.2 % Lymph % (Auto) 14.3 % [place] % (Auto) 13.3 % Eos % (Auto) 0.6 % Baso % (Auto) 0.6 % Neut # (Auto) 3.65 (1.4-6.5) K/uL Lymph # (Auto) 0.73 L (1.2-3.4) K/uL [place] # (Auto) 0.68 H (0.11-0.59) K/uL Eos # (Auto) 0.03 (0-0.5) K/uL Baso # (Auto) 0.03 (0-0.2) K/uL Immature Gran # (Auto) 0.00 (0.00-0.02) K/uL Sodium 140 (136-145) mmol/L Potassium 3.9 (3.5-5.1) mmol/L Chloride 104 (98-107) mmol/L Carbon Dioxide 33 H (21-32) mmol/L Anion Gap 3.0 (3-11) BUN 19 H (7-18) mg/dl Creatinine 1.15 (0.6-1.4) mg/dl Est Cr Clr Drug Dosing 47.6 ml/min Est GFR ( Amer) 65.0 Est GFR (Non-Af Amer) 56.1 BUN/Creatinine Ratio 16.3 (10-20) Glucose 97 (70-99) mg/dl Calcium 9.1 (8.5-10.1) mg/dl Total Bilirubin 1.2 H (0.2-1) mg/dl AST 32 (15-37) U/L ALT 24 (12-78) U/L Alkaline Phosphatase 137 H (45-117) U/L Total Protein 7.5 (6.4-8.2) gm/dl Albumin 3.6 (3.4-5.0) gm/dl Globulin 3.9 (2.5-4.0) gm/dl Albumin/Globulin Ratio 0.9 (0.9-2) Lipase 126 (73-393) U/L Urine Color Yellow Urine Appearance Clear (Clear) Urine pH 7.0 (4.5-7.5) Ur Specific [place] 1.008 (1.000-1.030) Urine Protein Negative (Negative) Urine Glucose (UA) Negative (Negative) Urine Ketones Negative (Negative) Urine Blood Negative (Negative) Urine Nitrite Negative (Negative) Urine Bilirubin Negative (Negative) Urine Urobilinogen Negative (Negative) Ur Leukocyte Esterase Negative (Negative) COVID-19 Eval Order 12/29/20 Range/Units 17:30 WBC (4.8-10.8) K/uL RBC (4.7-6.1) M/uL Hgb (14.0-18.0) g/dL Hct (42-52) % MCV (80-100) fL MCH (25-34) pg MCHC (32-36) g/dL RDW Std Deviation (36.4-46.3) fL RDW Coeff of Hakeem (11.5-14.5) % Plt Count (130-400) K/uL MPV (7.4-10.4) fL Immature Gran % (Auto) % Neut % (Auto) % Lymph % (Auto) % [place] % (Auto) % Eos % (Auto) % Baso % (Auto) % Neut # (Auto) (1.4-6.5) K/uL Lymph # (Auto) (1.2-3.4) K/uL [place] # (Auto) (0.11-0.59) K/uL Eos # (Auto) (0-0.5) K/uL Baso # (Auto) (0-0.2) K/uL Immature Gran # (Auto) (0.00-0.02) K/uL Sodium (136-145) mmol/L Potassium (3.5-5.1) mmol/L Chloride (98-107) mmol/L Carbon Dioxide (21-32) mmol/L Anion Gap (3-11) BUN (7-18) mg/dl Creatinine (0.6-1.4) mg/dl Est Cr Clr Drug Dosing ml/min Est GFR ( Amer) Est GFR (Non-Af Amer) BUN/Creatinine Ratio (10-20) Glucose (70-99) mg/dl Calcium (8.5-10.1) mg/dl Total Bilirubin (0.2-1) mg/dl AST (15-37) U/L ALT (12-78) U/L Alkaline Phosphatase (45-117) U/L Total Protein (6.4-8.2) gm/dl Albumin (3.4-5.0) gm/dl Globulin (2.5-4.0) gm/dl Albumin/Globulin Ratio (0.9-2) Lipase (73-393) U/L Urine Color Urine Appearance (Clear) Urine pH (4.5-7.5) Ur Specific [place] (1.000-1.030) Urine Protein (Negative) Urine Glucose (UA) (Negative) Urine Ketones (Negative) Urine Blood (Negative) Urine Nitrite (Negative) Urine Bilirubin (Negative) Urine Urobilinogen (Negative) Ur Leukocyte Esterase (Negative) COVID-19 Eval Order [facility] at [facility] Imaging Data Radiologist's Impression: Chest/Abdomen X-ray 12/29/20 15:19 PA CHEST RADIOGRAPH AND UPRIGHT AND SUPINE AP RADIOGRAPHS OF THE ABDOMEN CLINICAL HISTORY: Abdominal bloating. COMPARISON STUDY: CT of the chest, abdomen and pelvis December 25, 2020. FINDINGS: Median sternotomy wires are noted. There is mild cardiomegaly without evidence for pulmonary edema. A persistent [id number] right pleural effusion with right basilar opacity is noted. There is no free air. There are gallstones within the gallbladder. The bowel gas pattern is normal. IMPRESSION: 1. No free air or evidence of bowel obstruction. 2. Cholelithiasis. 3. Persistent small to moderate right pleural effusion with right basilar opacity which could reflect atelectasis or consolidation. Radiographic follow-up to ensure resolution is recommended. ACT 112: Negative or not required by law. Electronically signed by: Omero Reno M.D. 12/29/2020 4:58 PM ECG Data Attestation: I personally reviewed and interpreted this ECG as follows: Indication: + abdominal pain Rate (beats per minute): 83 Rhythm: + sinus rhythm ECG Intervals/blocks: + Normal QT-c ECG ST segments: no ST elevation ECG Findings: no PVCs MDM Narrative Patient presents with ongoing bloatedness and abdominal discomfort that he is unable to burp off. This has been going on for more than a couple of months and worsening. He has lost 5 pounds in the last few days since discharge from the hospital. His last normal bowel movement was this morning. His PCP wanted him to be reevaluated in the hospital. Twelve-lead EKG shows a normal sinus rhythm. CBC was normal. Chemistry panel was unremarkable. Acute abdominal series did not show concerning abnormality. I spoke with a GI specialist on-call, Dr. Yodit Lynch, who recommended the patient be n.p.o. after midnight and put on a PPI. They will hopefully be able to do a endoscopy on the patient tomorrow. The hospitalist will see the patient. Impression & Plan Abdominal bloating, Unable to eat Discharge Plan Visit Data Chief Complaint: GI Assessment Stated Complaint: BLOATED ED Provider: Richmond Rodriguez Discharge Problem: Abdominal bloating, Unable to eat Patient Disposition: Being Evaluated by Hospitalist Forms Stand Alone Forms: [facility] Prescriptions Prescriptions: No Action simvastatin 10 mg tablet 10 mg PO DAILY RF: 0 allopurinol 100 mg tablet 100 mg PO QAM RF: 0 tamsulosin 0.4 mg capsule 0.4 mg PO DAILY RF: 0 aspirin 325 mg Tablet 325 mg PO QDL RF: 0 PreserVision AREDS [id number] Capsule 1 cap PO BID RF: 0 gabapentin 100 mg capsule 100 mg PO BID RF: 0 finasteride 5 mg tablet 5 mg PO DAILY RF: 0 Incruse Ellipta 62.5 mcg/actuation blister with device 1 inh inhalation QPM RF: 0 [id number] Tablet 1 tab PO QAM RF: 0 omega-3 fatty acids-fish oil [Fish Oil] 360-1,200 mg Capsule 1 cap PO QAM RF: 0 omeprazole 20 mg capsule,delayed release(DR/EC) 20 mg PO QAM RF: 0 furosemide 20 mg tablet 20 mg PO QAM RF: 0 metoprolol succinate [Toprol XL] 50 mg tablet extended release 24 hr 50 mg PO QAM RF: 0 acetaminophen 500 mg Tablet 500 mg PO Q6H PRN (Reason: Pain) RF: 0 benzonatate 100 mg Capsule 100 mg PO BID PRN (Reason: Cough) RF: 0 nitroglycerin 0.4 mg Tablet, Sublingual 0.4 mg sublingual DAILY PRN (Reason: Chest Pain) RF: 0 polyethylene glycol 3350 [Miralax] 17 gram Powder In Packet 17 g PO QAM RF: 0 simethicone 80 mg Tablet 80 mg PO TID PRN (Reason: gas) RF: 0 Referrals Referrals: Pritesh Murray DO [Primary Care Provider] -
[2020-12-29 15:47] LABS: Basophils # (auto) 0.03 K/uL (0-0.2); Basophils % (auto) 0.6 %; Eosinophils # (auto) 0.03 K/uL (0-0.5); Eosinophils % (auto) 0.6 %; Hematocrit (blood only) 47.8 % (42-52); Hemoglobin 15.9 g/dL (14.0-18.0); Lymphocytes # (auto) 0.73 K/uL (1.2-3.4); Lymphocytes % (auto) 14.3 %; Mean Corpuscular Hemoglobin 33.2 pg (25-34); Mean Corpuscular Hgb Conc 33.3 g/dL (32-36); Mean Corpuscular Volume 99.8 fL (80-100); Mean Platelet Volume 11.9 fL (7.4-10.4); Monocytes # (auto) 0.68 K/uL (0.11-0.59); Monocytes % (auto) 13.3 %; Neutrophils # (auto) 3.65 K/uL (1.4-6.5); Neutrophils % (auto) 71.2 %; Platelet Count 118 K/uL (130-400); RDW Coefficient of Variation 14.3 % (11.5-14.5); RDW Standard Deviation 52.1 fL (36.4-46.3); Red Blood Count 4.79 M/uL (4.7-6.1); White Blood Count 5.12 K/uL (4.8-10.8)
[2020-12-29 16:05] LABS: Albumin Level 3.6 gm/dl (3.4-5.0); BUN Creatinine Ratio 16.3 (10-20); Calcium 9.1 mg/dl (8.5-10.1); Creatinine Clr Calc Pharmacy 47.6 ml/min; Est GFR (Non-African American) 56.1; Potassium 3.9 mmol/L (3.5-5.1)
[2020-12-29 16:08] LABS: Albumin Globulin Ratio 0.9 (0.9-2); Bilirubin,Total 1.2 mg/dl (0.2-1); Globulin 3.9 gm/dl (2.5-4.0); Total Protein 7.5 gm/dl (6.4-8.2)
[2020-12-29 16:39] LABS: Appearance Urine Clear (Clear); Bilirubin Urine Negative (Negative); Blood Urine Negative (Negative); Color Urine Yellow; Glucose Urine UA Negative (Negative); Ketones Urine Negative (Negative); Leukocyte Esterase Urine Negative (Negative); Nitrite Urine Negative (Negative); Protein Urine Negative (Negative); Specific Gravity Urine 1.008 (1.000-1.030); Urobilinogen Urine Negative (Negative)
--- NOTE | 2020-12-29 16:59 | XRay Report ---
PA CHEST RADIOGRAPH AND UPRIGHT AND SUPINE AP RADIOGRAPHS OF THE ABDOMEN CLINICAL HISTORY: Abdominal bloating. COMPARISON STUDY: CT of the chest, abdomen and pelvis December 25, 2020. FINDINGS: Median sternotomy wires are noted. There is mild cardiomegaly without evidence for pulmona ry edema. A persistent [id number] right pleural effusion with right basilar opacity is noted. There is no free air. There are gallstones within the gallbladder. The bowel gas pattern is normal. IMPRESSION: 1. No free air or evidence of bowel obstruction. 2. Cholelithiasis. 3. Persistent small to moderate right pleural effusion with right basilar opacity which could reflect atelectasis or consolidation. Radiographic follow-up to ensure resolution is recommended. ACT 112: Negative or not required by law. Electronically signed by: Omero Reno M.D. 12/29/2020 4:58 PM
--- NOTE | 2020-12-29 17:28 | History & Physical Report ---
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 Did not recommend repeat sampling in absence of clinical symptoms Remains asymptomatic. Saturating at 93% on room air (5) COPD (chronic obstructive pulmonary disease): Continue Ellipta inhaler DVT Ppx: SCDs for now Code status: FULL PCP: Trevor Dispo: Observation med tele Patient seen in collaboration with Dr. Whelan. Please see addendum. 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 Was seen in clinic for this at the beginning of December and was directed to take MiraLAX once daily as well as simethicone 80 mg 3 times daily as needed. Symptoms did not improve and was admitted for further workup. GI service evaluated and scheduled outpatient EGD at the beginning of GI to rule out gastric outlet obstruction. 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 Symptoms have worsened since returning home, per patient, who now feels bloated even after a few sips of water. Has not been able to tolerate much of anything p.o. and is lost 5 pounds since discharge on Tuesday per daughter at bedside. Denies any reagan abdominal pain or nausea but more so endorses general discomfort and a feeling of fullness with short-term relief after belching or passing gas. Had a small BM earlier today. Denies any fever, chills, headache, lightheadedness, chest pain, shortness of breath or dysuria. Allergies Allergy/AdvReac Type Severity Reaction Status Date / Time No Known Allergies Allergy Unknown Verified 12/29/20 16:19 Home Medications Medication Instructions Recorded Confirmed Type PreserVision AREDS 1 cap PO BID 09/27/20 12/29/20 History allopurinol 100 mg PO QAM 09/27/20 12/29/20 History aspirin 325 mg PO QDL 09/27/20 12/29/20 History simvastatin 10 mg PO DAILY 09/27/20 12/29/20 History tamsulosin 0.4 mg PO DAILY 09/27/20 12/29/20 History Incruse Ellipta 1 inh INHALATION QPM 11/05/20 12/29/20 History finasteride 5 mg PO DAILY 11/05/20 12/29/20 History gabapentin 100 mg PO BID 11/05/20 12/29/20 History tisbulssxalj-bqngedfi-kudraw 1 tab PO QAM 11/05/20 12/29/20 History omega-3 fatty acids-fish oil [Fish 1 cap PO QAM 11/05/20 12/29/20 History Oil] acetaminophen 500 mg PO Q6H PRN 12/25/20 12/29/20 History benzonatate 100 mg PO BID PRN 12/25/20 12/29/20 History furosemide 20 mg PO QAM 12/25/20 12/29/20 History metoprolol succinate [Toprol XL] 50 mg PO QAM 12/25/20 12/29/20 History nitroglycerin 0.4 mg SUBLINGUAL DAILY PRN 12/25/20 12/29/20 History omeprazole 20 mg PO QAM 12/25/20 12/29/20 History polyethylene glycol 3350 [Miralax] 17 g PO QAM 12/25/20 12/29/20 History simethicone 80 mg PO TID PRN 12/25/20 12/29/20 History Past Med/Surg History Medical History (Updated 12/29/20 @ 18:01 by Flory Johnson PA-C) Abdominal pain Carotid stenosis COPD (chronic obstructive pulmonary disease) History of DVT (deep vein thrombosis) History of malignant neoplasm of parotid gland Pleural effusion Surgical History History of coronary artery bypass graft History of right-sided carotid endarterectomy Hx of parotidectomy Family History Other Heart disease Social History Smoking Status: Former smoker Tobacco Type: Cigarettes Hx Alcohol Use: No Hx Substance Use: No Preferred Language: Czech Communication Ability: Effective 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 Physical Exam Physical Exam: General Appearance: WD/WN, vitals as above, NAD, sitting up in bed, conversing easily Head: normocephalic, atraumatic Eyes: normal inspection, PERRL, conjunctivae normal, anicteric sclerae ENT: external ear and nose normal, oropharynx normal Neck: normal visual inspection, trachea midline, no thyromegaly Respiratory: normal respiratory effort, lungs clear to auscultation, no wheeze, rales, rhonchi. No accessory muscle use Cardiovascular: regular rate, rhythm, no murmur, normal peripheral pulses, no BLE edema. Vessels: no JVD Chest: normal inspection of chest Abdomen/GI: normal bowel sounds, distended but soft, nontender, no hepatosplenomegaly Extremities/Musculoskeletal: no cyanosis or clubbing, extremities motor strength 5/5 Neurologic: PERRL, EOMI, accommodation nl, no face palsy, no dysarthria, CN's II-XI intact bilaterally and moves all extremities Psychiatric: A+Ox3, euthymic affect Skin: no rashes, normal color, warm/dry Results & Data Results & Data ([facility]) Vital Signs (Past 12 Hours) Vital Signs Temp Pulse Pulse Resp BP BP Pulse Ox 12/29/20 16:22 83 22 153/95 H 92 12/29/20 14:55 36.8 C 95 H 18 110/67 93 Laboratory Results Short CBC 12/29/20 12/29/20 12/29/20 Range/Units 15:35 15:35 16:30 WBC 5.12 (4.8-10.8) K/uL RBC 4.79 (4.7-6.1) M/uL Hgb 15.9 (14.0-18.0) g/dL Hct 47.8 (42-52) % MCV 99.8 (80-100) fL MCH 33.2 (25-34) pg MCHC 33.3 (32-36) g/dL RDW Std Deviation 52.1 H (36.4-46.3) fL RDW Coeff of [place]akeem 14.3 (11.5-14.5) % Plt Count 118 L (130-400) K/uL MPV 11.9 H (7.4-10.4) fL Immature Gran % (Auto) 0.0 % Neut % (Auto) 71.2 % Lymph % (Auto) 14.3 % [place] % (Auto) 13.3 % Eos % (Auto) 0.6 % Baso % (Auto) 0.6 % Neut # (Auto) 3.65 (1.4-6.5) K/uL Lymph # (Auto) 0.73 L (1.2-3.4) K/uL [place] # (Auto) 0.68 H (0.11-0.59) K/uL Eos # (Auto) 0.03 (0-0.5) K/uL Baso # (Auto) 0.03 (0-0.2) K/uL Immature Gran # (Auto) 0.00 (0.00-0.02) K/uL Sodium 140 (136-145) mmol/L Potassium 3.9 (3.5-5.1) mmol/L Chloride 104 (98-107) mmol/L Carbon Dioxide 33 H (21-32) mmol/L Anion Gap 3.0 (3-11) BUN 19 H (7-18) mg/dl Creatinine 1.15 (0.6-1.4) mg/dl Est Cr Clr Drug Dosing 47.6 ml/min Est GFR ( Amer) 65.0 Est GFR (Non-Af Amer) 56.1 BUN/Creatinine Ratio 16.3 (10-20) Glucose 97 (70-99) mg/dl Calcium 9.1 (8.5-10.1) mg/dl Total Bilirubin 1.2 H (0.2-1) mg/dl AST 32 (15-37) U/L ALT 24 (12-78) U/L Alkaline Phosphatase 137 H (45-117) U/L Total Protein 7.5 (6.4-8.2) gm/dl Albumin 3.6 (3.4-5.0) gm/dl Globulin 3.9 (2.5-4.0) gm/dl Albumin/Globulin Ratio 0.9 (0.9-2) Lipase 126 (73-393) U/L Urine Color Yellow Urine Appearance Clear (Clear) Urine pH 7.0 (4.5-7.5) Ur Specific [place] 1.008 (1.000-1.030) Urine Protein Negative (Negative) Urine Glucose (UA) Negative (Negative) Urine Ketones Negative (Negative) Urine Blood Negative (Negative) Urine Nitrite Negative (Negative) Urine Bilirubin Negative (Negative) Urine Urobilinogen Negative (Negative) Ur Leukocyte Esterase Negative (Negative) BMP 12/29/20 15:35 Sodium 140 Potassium 3.9 Chloride 104 Carbon Dioxide 33 H BUN 19 H Creatinine 1.15 Glucose 97 Calcium 9.1 Liver Function 12/29/20 Range/Units 15:35 Total Bilirubin 1.2 H (0.2-1) mg/dl AST 32 (15-37) U/L ALT 24 (12-78) U/L Alkaline Phosphatase 137 H (45-117) U/L Albumin 3.6 (3.4-5.0) gm/dl Urine 12/29/20 Range/Units 16:30 Urine Color Yellow Urine Appearance Clear (Clear) Urine pH 7.0 (4.5-7.5) Ur Specific [place] 1.008 (1.000-1.030) Urine Protein Negative (Negative) Urine Glucose (UA) Negative (Negative) Diagnostic Findings Chest/Abdomen X-ray 12/29/20 15:19 PA CHEST RADIOGRAPH AND UPRIGHT AND SUPINE AP RADIOGRAPHS OF THE ABDOMEN CLINICAL HISTORY: Abdominal bloating. COMPARISON STUDY: CT of the chest, abdomen and pelvis December 25, 2020. FINDINGS: Median sternotomy wires are noted. There is mild cardiomegaly without evidence for pulmonary edema. A persistent [id number]-wm-couxafbz right pleural effusion with right basilar opacity is noted. There is no free air. There are gallstones within the gallbladder. The bowel gas pattern is normal. IMPRESSION: 1. No free air or evidence of bowel obstruction. 2. Cholelithiasis. 3. Persistent small to moderate right pleural effusion with right basilar opacity which could reflect atelectasis or consolidation. Radiographic follow-up to ensure resolution is recommended. ACT 112: Negative or not required by law. Electronically signed by: Omero Reno M.D. 12/29/2020 4:58 PM Code Status & VTE Plan VTE Prophylaxis Plan VTE Prophylaxis will be ordered: Yes Supervising Physician Co-Signing Physician Notes I saw this patient with the physician social work assistant, I participated in the history, physical, review of systems, and physical exam. I reviewed the medications with the patient and the physician social work assistant and helped reconcile the medications. I helped take a detailed family and social history as well. I formulated the assessment and plan personally with the physician social work assistant and went over it with the patient. ROS-No Headache, No Visual Changes, No Nausea, No Vomiting, No Fever, No Chills, No Neck Pain or Stiffness, No Chest Pain, No Palpitations, No SOB, No AYALA, No Cough, No Sputum, No Wheezing, +Abdominal Bloating and Burping, No Diarrhea, No Hematemesis, No Hemoptysis, No Unexpected Weight Loss, No Flank pain, No Melena, No Hematochezia, No Frequency, No Urgency, No Burning, No Hematuria, No Rashes, No Diaphoresis. Appetite is Poor, Feels dehydrated Physical Exam Gen-AAO x 3, NAD, Afebrile, MM Dry Head-NCAT, EOMI, PERRLA, Anicteric Sclera, No Posterior Pharyngeal Erythema Neck-Supple, No JVD, No Thyromegaly, No Masses, No LAD, No Bruits Lungs-Clear to Auscultation Bilaterally, No Rales, No Rhonchi, No Wheezing, No Crepitus Chest-No S4, +S1, +S2, No S3, No Murmurs, No Rubs, No Gallops, No Ectopy Abdomen-Soft, Bowel Sounds Present, Non Tender, Non Distended, No Hepatomegaly, No Splenomegaly, No Palpable Masses, No Rebound, No Rigidity, No Guarding Musculoskeletal-Full Range of Motion Bilaterally, No CVAT Extremities-No Cyanosis, No Clubbing, No Edema Nuero-Cranial Nerves II-XII grossly intact, Motor WNL, DTRs WNL, Strength WNL, Non Focal Psych-Normal Mood (1) Hypertension Hypertension type: unspecified Qualified Code(s): I10 - Essential (primary) hypertension
[2020-12-29 18:56] LABS: Influenza A virus by PCR Negative (Neg); Influenza B virus by PCR Negative (Neg); RSV by PCR Negative (Neg); SARS CoV2 RNA(COVID-19) InHosp NEGATIVE (Negative)
[2020-12-29] MEDS ORDERED: ONDANSETRON INJ 2 MG/ML 2 ML VIAL IV PRN (19:14)
[2020-12-29] MEDS ORDERED: SODIUM CHLORIDE 0.9% 1000ML 1,000 ML IV SCH (20:00)
[2020-12-29] MEDS: UMECLIDINIUM BROMIDE 62.5MCG/BLISTER 7 PUFFS/INHALER INH SCH (21:01)
[2020-12-29] MEDS: PANTOprazole 40 MG in SYRINGE 0 ML IV SCH (21:04)
[2020-12-29] MEDS ORDERED: NITROGLYCERIN SL 0.4 MG/TAB TAB SL PRN (21:45)
[2020-12-29] MEDS ORDERED: BENZONATATE 100 MG CAPSULE PO PRN (21:45)
[2020-12-29] MEDS ORDERED: GABAPENTIN 100 MG CAP PO ONE (22:15)
[2020-12-29] MEDS ORDERED: CEROVITE ADV FORMULA TAB PO ONE (22:15)
[2020-12-30] MEDS: SIMETHICONE 80 MG CHEW PO PRN ×2 (05:24→17:02)
[2020-12-30] MEDS: METOPROLOL SUCC 50MG EXT REL TAB PO SCH (05:45)
[2020-12-30] MEDS ORDERED: SODIUM CHLORIDE 0.9% 1000ML 1,000 ML IV SCH (05:45)
[2020-12-30 07:17] LABS: Partial Thromboplastin Ratio 0.9
[2020-12-30 07:40] LABS: Hematocrit (blood only) 43.2 % (42-52); Hemoglobin 14.1 g/dL (14.0-18.0); Mean Corpuscular Hemoglobin 32.6 pg (25-34); Mean Corpuscular Hgb Conc 32.6 g/dL (32-36); Platelet Count 100 K/uL (130-400); RDW Coefficient of Variation 14.2 % (11.5-14.5); RDW Standard Deviation 52.1 fL (36.4-46.3); Red Blood Count 4.32 M/uL (4.7-6.1); White Blood Count 4.28 K/uL (4.8-10.8)
[2020-12-30 07:41] LABS: BUN Creatinine Ratio 18.5 (10-20); Calcium 8.8 mg/dl (8.5-10.1); Creatinine Clr Calc Pharmacy 57.9 ml/min; Est GFR (Non-African American) 71.6; Platelet Estimate Decreased (Normal); Potassium 3.7 mmol/L (3.5-5.1)
[2020-12-30] MEDS: CEROVITE ADV FORMULA TAB PO SCH ×2 (07:42→21:00)
[2020-12-30] MEDS: PANTOprazole 40 MG in SYRINGE 0 ML IV SCH ×2 (07:47→20:59)
[2020-12-30] MEDS: allopurinoL 100 MG TAB PO SCH (07:47)
[2020-12-30] MEDS: SIMVASTATIN 10 MG TAB PO SCH (07:47)
[2020-12-30] MEDS: GABAPENTIN 100 MG CAP PO SCH ×2 (07:47→21:00)
[2020-12-30] MEDS: FINASTERIDE 5 MG TAB PO SCH (07:47)
[2020-12-30] MEDS: TAMSULOSIN HCL 0.4 MG CAP PO SCH (07:47)
[2020-12-30 08:01] LABS: Magnesium 2.1 mg/dl (1.8-2.4); Troponin I 0.062 ng/ml (0-0.045)
[2020-12-30 08:10] LABS: Albumin Globulin Ratio 0.9 (0.9-2); Albumin Level 2.9 gm/dl (3.4-5.0); Bilirubin,Total 1.3 mg/dl (0.2-1); Globulin 3.3 gm/dl (2.5-4.0); Total Protein 6.2 gm/dl (6.4-8.2)
--- NOTE | 2020-12-30 08:45 | Hospitalist Progress Note ---
Date of Service December 30, 2020 Assessment & Plan (1) Postprandial bloating: new onset constipation. GI consulted. Planning scope but need preop assessment from a cardiac standpoint with his recent chest pain and elevated troponin, and from a pulmonary standpoint with his known pleural effusion and desaturation on room air at rest that was seen this morning, prior to undergoing anesthesia for this elective procedure. For now clears trial. 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 If they are able to undergo the EUS here, will obtain biopsy. Patient does admit to 10 lbs weight loss in the last two months. (3) Hypertension: slightly elevated at 154/82 this morning, Lasix on hold. Will restart this now jay given effusion and hypoxia. Cont Toprol. (4) Pleural effusion: Seen by pulmonology last week and felt to be asymptomatic. Did not recommend repeat sampling in absence of clinical symptoms and known h/o complications with thoracentesis. Remains asymptomatic. Saturating at 93% on room air but does become hypoxic at rest (desaturation to 83% noted with recovery to low 92% when he wakes up and starts moving around and talking). Consulting pulmonology to give pre-operative recommendations given known effusion. (5) COPD (chronic obstructive pulmonary disease): chronic, stable. Continue Ellipta inhaler (6) DVT prophylaxis: DVT Ppx: SCDs for now Code status: FULL PCP: Trevor Dispo: cont hospitalization pending planned scope for workup of ongoing symptoms. Janae Menard DO [facility] Hospitalist Admission and Anticipated Discharge Date Admission Date: December 29, 2020 Subjective 89 yo M with h/o CABG and recent hospitalization for post-prandial bloating. He represents for the same issue and for possible expedited workup to include an EUS, originally planned as outpatient. In the background, he has a loculated pleural effusion which is being followed by [facility] Pulmonology, for which no intervention is currently recommended. On last admission he was brought in and placed on oxygen and subsequently underwent a two step assessment and passed. He has a h/o prior thoracentesis in this area revealing transudative fluid that was c/b pneumothorax. Referral to Thoracic customs compliance specialist was recommended if further intervention was needed. However, this morning, ,he was taken off 2LPM oxygen and desaturated to 83%. He denies any cough, fevers or other respiratory symptoms aside form some frontal sinus congestion. He also had some substernal chest pressure this morning which was relieved by nitro. He states this is not normal for him, but on occasion he will have this chest "fullness" which he doesn't describe as a pain. 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 He can climb a flight of stairs without stopping for breathing or chest pain, but has limitation 2/2 leg weakness. A troponin was pulled and mildly elevated at 0.062. An EKG revealed sinus rhythm with no acute ischemic change and his chest pain has resolved. Review of Systems Review of Systems: All systems reviewed & are unremarkable except as noted in Subjective Physical Exam Physical Exam: CONSTITUTIONAL: WNWD, vitals as above, generally well- appearing EYES: normal conjunctivae, no scleral icterus ENT: external ear and nose normal, MMM NECK: trachea midline RESPIRATORY: clear to auscultation bilaterally, no crackles, rales or wheezes, normal respiratory effort CARDIOVASCULAR: regular rate and rhythm, S1 and 2 heard without murmurs, gallops or rubs, no JVD, no peripheral edema GASTROINTESTINAL: soft, nontender, nondistended, no guarding. MUSCULOSKELETAL: strength 5/5 throughout, head is normocephalic and atraumatic SKIN: warm and dry NEUROLOGIC: CN 2-12 grossly intact, no sensory deficit, normal cognition, normal speech, no gross focal deficits. PSYCHIATRIC: alert cooperative and oriented to person, place and time. Results & Data Results & Data ([facility]) Vital Signs (Past 12 Hours) Vital Signs Temp Pulse Resp BP Pulse Ox 12/30/20 08:05 36.9 C 79 19 154/82 H 95 12/30/20 05:13 36.8 C 97 H 20 175/94 H 95 12/30/20 03:02 36.7 C 89 20 144/76 H 94 12/29/20 22:25 36.3 C L 88 18 162/82 H 96 Laboratory Results Short CBC 12/29/20 12/30/20 Range/Units 15:35 06:38 WBC 5.12 4.28 L (4.8-10.8) K/uL Hgb 15.9 14.1 (14.0-18.0) g/dL Hct 47.8 43.2 (42-52) % Plt Count 118 L 100 L (130-400) K/uL BMP 12/29/20 12/30/20 15:35 06:38 Sodium 140 143 Potassium 3.9 3.7 Chloride 104 108 H Carbon Dioxide 33 H 30 BUN 19 H 17 Creatinine 1.15 0.94 Glucose 97 80 Calcium 9.1 8.8 Cardiac Enzymes 12/30/20 Range/Units 06:38 Troponin I 0.062 H* (0-0.045) ng/ml Liver Function 12/29/20 12/30/20 Range/Units 15:35 06:38 Total Bilirubin 1.2 H 1.3 H (0.2-1) mg/dl AST 32 25 (15-37) U/L ALT 24 18 (12-78) U/L Alkaline Phosphatase 137 H 109 (45-117) U/L Albumin 3.6 2.9 L (3.4-5.0) gm/dl Urine 12/29/20 Range/Units 16:30 Urine Color Yellow Urine Appearance Clear (Clear) Urine pH 7.0 (4.5-7.5) Ur Specific [place] 1.008 (1.000-1.030) Urine Protein Negative (Negative) Urine Glucose (UA) Negative (Negative) Medications Administered Current Inpatient Medications Allopurinol (Allopurinol 100 Mg Tab) 100 mg PO QAM ISHA Stop: 01/29/21 08:59 Last Admin: 12/30/20 07:47 Dose: 100 mg Documented by: Aspirin (Aspirin 325 Mg Ectab) 325 mg PO QDL ISHA Stop: 01/29/21 11:29 Benzonatate (Benzonatate 100 Mg Capsule) 100 mg PO BID PRN PRN Reason: Cough Stop: 01/28/21 21:44 Finasteride (Finasteride 5 Mg Tab) 5 mg PO DAILY ISHA Stop: 01/29/21 08:59 Last Admin: 12/30/20 07:47 Dose: 5 mg Documented by: Gabapentin (Gabapentin 100 Mg Cap) 100 mg PO BID ISHA Stop: 01/29/21 08:59 Last Admin: 12/30/20 07:47 Dose: 100 mg Documented by: Pantoprazole Sodium 40 mg/ (Syringe) 10 mls @ 5 mls/min IV BID ISHA Stop: 01/28/21 20:59 Last Admin: 12/30/20 07:47 Dose: 5 mls/min Documented by: Metoprolol Succinate (Metoprolol Succ 50mg Ext Rel Tab) 50 mg PO QAM [facility] Stop: 01/29/21 05:39 Last Admin: 12/30/20 05:45 Dose: 50 mg Documented by: Multivitamins/Minerals (Cerovite Adv Formula Tab) 1 tab PO BID [facility] Stop: 01/29/21 08:59 Last Admin: 12/30/20 07:42 Dose: Not Given Documented by: Nitroglycerin (Nitroglycerin Sl 0.4 Mg/Tab Tab) 0.4 mg SL DAILY PRN PRN Reason: Chest Pain Stop: 01/28/21 21:44 Last Admin: 12/30/20 05:24 Dose: 0.4 mg Documented by: Ondansetron HCl (Ondansetron Inj 2 Mg/Ml 2 Ml Vial) 4 mg IV Q6H PRN PRN Reason: Nausea Stop: 01/28/21 19:13 Pantoprazole Sodium (Pantoprazole 40 Mg Tab) 40 mg PO QAM [facility] Stop: 01/29/21 08:59 Simethicone (Simethicone 80 Mg Chew) 80 mg PO TID PRN PRN Reason: gas Last Admin: 12/30/20 05:24 Dose: 80 mg Documented by: Simvastatin (Simvastatin 10 Mg Tab) 10 mg PO DAILY [facility] Stop: 01/29/21 08:59 Last Admin: 12/30/20 07:47 Dose: 10 mg Documented by: Tamsulosin HCl (Tamsulosin Hcl 0.4 Mg Cap) 0.4 mg PO DAILY [facility] Stop: 01/29/21 08:59 Last Admin: 12/30/20 07:47 Dose: 0.4 mg Documented by: Umeclidinium Imboden (Umeclidinium [place] 62.5mcg/Blister 7 Puffs/Inhaler) 1 puffs INH QPM [facility] Stop: 01/28/21 20:59 Last Admin: 12/29/20 21:01 Dose: 1 puffs Documented by: (1) Hypertension Hypertension type: unspecified Qualified Code(s): I10 - Essential (primary) hypertension
[2020-12-30] MEDS ORDERED: PANTOprazole 40 MG TAB PO SCH (09:00)
[2020-12-30] MEDS ORDERED: METOPROLOL SUCC 50MG EXT REL TAB PO SCH (09:00)
[2020-12-30] MEDS ORDERED: FUROSEMIDE 20 MG TAB PO SCH (09:05)
--- NOTE | 2020-12-30 10:21 | Pulmonary Consultation ---
Date of Consultation December 30, 2020 Assessment & Plan (1) Acute respiratory failure with hypoxia: CT chest 12/25/2020 personally reviewed:Right-sided pleural effusion is appreciated again. No mediastinal lymphadenopathy unchanged. 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 --Right-sided pleural effusion S/p thoracentesis 09/28/2020 950 mL of serosanguineous fluid was removed, transudative as per lights criteria, cytology negative Pleural fluid: LDH 96, total protein 3.5, glucose 113, pH 7.37 Serum: LDH 210, total protein 6.6 90% lymphocytes Etiology is likely diastolic CHF. Patient did have a spontaneous pneumothorax back in November when he had a chest x- ray done. It resolved on the repeat chest x-ray. This was not because of thoracentesis which was done back in September. --Acute hypoxic respiratory failure Seems to be coming from likely diastolic CHF given the pleural effusion as well as abdominal distention patient not able to take deep breaths Diuretics to keep the patient negative balance Continue with O2 supplementation to keep oxygen saturation between 88-92% --COPD Gold class B Approximately [id number] smoking history Quit at the age of 51 Continue with Incruse --Abnormal chest CT Patient has a soft tissue opacity in the posterior mediastinal area in the esophagus Unfortunately this is not reachable by pulmonary intervention EGD could be thought of Plan: Recommend changing diuretics to IV 40 mg on a daily basis Incentive spirometry No plan for thoracentesis right now Please note the above document was generated using voice recognition software. It may contain grammatical, syntax or spelling errors.Any formal questions or concerns about the content, text or information contained within the body of this dictation should be directly addressed to the provider for clarification. 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 Follow-up with the patient in the clinic. He had thoracentesis on 09/28/2020 which yielded 950 mL of pleural fluid on the right which seemed to be a transudate. He did have a lymphocytic predominance to the pleural effusion of unclear etiology. Pulmonary were consulted because of hypoxia. At the time of examination patient was saturating 94% on 2 L nasal cannula at rest. Denied any significant complaints that it comes to his breathing His main complaint was unable to keep food down as it causes him to gag. Complains of flatulence and abdominal bloating. Denies any chest pain, no headache, no dizziness. He is compliant with his inhalers at home. Patient had a spontaneous pneumothorax back in mid November. Patient's program control analyst gave me a call at that time. Patient was asymptomatic and rec ommendation was repeated a chest x-ray in 3 to 4 days from the original chest x- ray. Patient had a repeat chest x-ray on 12/05/2019 which did not show any signs of pneumothorax. Patient was also seen by Dr. Morton on 12/26/2020 pulmonary were consulted initially Allergies Allergy/AdvReac Type Severity Reaction Status Date / Time No Known Allergies Allergy Unknown Verified 12/29/20 16:19 Home Medications Medication Instructions Recorded Confirmed Type PreserVision AREDS 1 cap PO BID 09/27/20 12/29/20 History allopurinol 100 mg PO QAM 09/27/20 12/29/20 History aspirin 325 mg PO QDL 09/27/20 12/29/20 History simvastatin 10 mg PO DAILY 09/27/20 12/29/20 History tamsulosin 0.4 mg PO DAILY 09/27/20 12/29/20 History Incruse Ellipta 1 inh INHALATION QPM 11/05/20 12/29/20 History finasteride 5 mg PO DAILY 11/05/20 12/29/20 History gabapentin 100 mg PO BID 11/05/20 12/29/20 History nhricoqwojfe-icidoyib-gvksun 1 tab PO QAM 11/05/20 12/29/20 History omega-3 fatty acids-fish oil [Fish 1 cap PO QAM 11/05/20 12/29/20 History Oil] acetaminophen 500 mg PO Q6H PRN 12/25/20 12/29/20 History benzonatate 100 mg PO BID PRN 12/25/20 12/29/20 History furosemide 20 mg PO QAM 12/25/20 12/29/20 History metoprolol succinate [Toprol XL] 50 mg PO QAM 12/25/20 12/29/20 History nitroglycerin 0.4 mg SUBLINGUAL DAILY PRN 12/25/20 12/29/20 History omeprazole 20 mg PO QAM 12/25/20 12/29/20 History polyethylene glycol 3350 [Miralax] 17 g PO QAM 12/25/20 12/29/20 History simethicone 80 mg PO TID PRN 12/25/20 12/29/20 History Patient History Medical History Abdominal pain Carotid stenosis COPD (chronic obstructive pulmonary disease) History of DVT (deep vein thrombosis) History of malignant neoplasm of parotid gland Pleural effusion Surgical History History of coronary artery bypass graft History of right-sided carotid endarterectomy Hx of parotidectomy Family History Other Heart disease Social History Smoking Status: Former smoker Tobacco Type: Cigarettes Hx Alcohol Use: No Hx Substance Use: No Preferred Language: Gambian Communication Ability: Effective Patent Prosecution Attorney Required: No Beliefs That Will Affect Care: None marital status: Current Living Situation: Spouse Current Living Situation Comment: Home with Feels Safe at Home: Yes Assistive Devices: Cane, Denture - Upper, Denture - Lower and Hearing Aid - Right Review of Systems Review of Systems: All systems reviewed & are unremarkable except as noted in HPI & below Physical Exam Physical Exam: Constitutional: No acute distress HEENT: EOMI, PERRLA Respiratory system: Decreased air entry in the right side, no wheeze, no rhonchi, mild crackles bilaterally CVS: S1-S2 positive, no murmurs or gallops Abdomen: Soft, nontender, nondistended, positive bowel sounds x4 Extremities: +2 pulses bilaterally radialis/ dorsalis pedis, no cyanosis, +1 pitting edema bilateral lower extremity Neuro: Awake alert oriented x3 Psych: Normal mood and affect G/U: No Lebron Skin: no rashes, warm and dry Lymphatic: no cervical or axillary lymphadenopathy Results & Data Results & Data ([facility]) Vital Signs (Past 12 Hours) Vital Signs Temp Pulse Resp BP Pulse Ox 12/30/20 08:45 18 94 12/30/20 08:35 20 84 L 12/30/20 08:05 36.9 C 79 19 154/82 H 95 12/30/20 05:13 36.8 C 97 H 20 175/94 H 95 12/30/20 03:02 36.7 C 89 20 144/76 H 94 12/29/20 22:25 36.3 C L 88 18 162/82 H 96 12/30/20 06:38 12/30/20 06:38 PG Care Time/CCT Total # of Minutes Spent Total Time Spent with Patient: Total time spent is greater than 50% in coordination of care (as documented) at patient's floor/unit and/or counseling patient: Coding Level of Care Code 42396 Initial Inpt Care Lvl 3 Diagnoses Acute respiratory failure with hypoxia J96.01 Pleural effusion J90 COPD (chronic obstructive pulmonary disease) J44.9
--- NOTE | 2020-12-30 11:02 | Gastrointestinal Consultation ---
Date of Consultation December 30, 2020 Assessment & Plan (1) Bloating: Patient with complaints of lower abdominal bloating, does not endorse nausea vomiting and/or symptoms concerning for gastric outlet obstruction. He does provide a history that is a difficult to interpret with intolerance of l iquids at times, and do think that he warrants an EGD at some point as well as an EUS for biopsy of this paraesophageal lesion. This may only be constipation, aerophagia, reflux, and had planned on EGD today. However, given the fact that he has new oxygen requirement as well as substernal chest pain relieved with nitroglycerin we will ask for pulmonary and cardiology clearance to ensure that this is not atypical angina or other causes contributing and would also not be ideal or optimized for anesthesia timing for a nonemergent procedure. We will follow along, call with questions. At some point may require colonoscopy, however will need to rule out obstruction first as likely would not tolerate preparation at this time. History of Present Illness Attending Physician: Janae Menard, History of Present Illness This is a 89yo M CAD s/p CABG, HTN, HLD, carotid artery stenosis status post right endarterectomy, COPD, history of tobacco abuse, CKD stage III, thrombocytopenia history of parotid gland cancer (s/p parotidectomy and radiation and other medical problems listed below who presents with continued abdominal bloating and gas x2 months. He provides a history today that includes having increased lower abdominal bloating for the last 1 to 2 months. He states that this intermittently gets worse on him, sometimes is exacerbated by drinking any liquids. He has lost 11 pounds mainly from decreased p.o. intake. He is having bowel movements, soliz seb, they are often unsatisfactory. He also notes that he has had an increased recent shortness of breath with a documented loculated pleural effusion, and last night had substernal chest pain that radiated across his chest and relieved with nitroglycerin. He was in the hospital overnight for similar symptoms last week, symptoms persisted and called PCP and was directed to come back to the emergency room. Today tells me he feels just perfect and is without symptoms. He had a satisfactory bowel movement today. But to my knowledge has not had a recent bowel regimen done at home. He is unsure if he is had any new recent medications started by his PCP. 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 He was hypoxic overnight with placement of oxygen on him, he is satting well and comfortably but does state that this has improved his symptoms. Allergies Allergy/AdvReac Type Severity Reaction Status Date / Time No Known Allergies Allergy Unknown Verified 12/29/20 16:19 Home Medications Medication Instructions Recorded Confirmed Type PreserVision AREDS 1 cap PO BID 09/27/20 12/29/20 History allopurinol 100 mg PO QAM 09/27/20 12/29/20 History aspirin 325 mg PO QDL 09/27/20 12/29/20 History simvastatin 10 mg PO DAILY 09/27/20 12/29/20 History tamsulosin 0.4 mg PO DAILY 09/27/20 12/29/20 History Incruse Ellipta 1 inh INHALATION QPM 11/05/20 12/29/20 History finasteride 5 mg PO DAILY 11/05/20 12/29/20 History gabapentin 100 mg PO BID 11/05/20 12/29/20 History gzeyusljfnzt-mppyfdhp-jehmzd 1 tab PO QAM 11/05/20 12/29/20 History omega-3 fatty acids-fish oil [Fish 1 cap PO QAM 11/05/20 12/29/20 History Oil] acetaminophen 500 mg PO Q6H PRN 12/25/20 12/29/20 History benzonatate 100 mg PO BID PRN 12/25/20 12/29/20 History furosemide 20 mg PO QAM 12/25/20 12/29/20 History metoprolol succinate [Toprol XL] 50 mg PO QAM 12/25/20 12/29/20 History nitroglycerin 0.4 mg SUBLINGUAL DAILY PRN 12/25/20 12/29/20 History omeprazole 20 mg PO QAM 12/25/20 12/29/20 History polyethylene glycol 3350 [Miralax] 17 g PO QAM 12/25/20 12/29/20 History simethicone 80 mg PO TID PRN 12/25/20 12/29/20 History Patient History Medical History Abdominal pain Carotid stenosis COPD (chronic obstructive pulmonary disease) History of DVT (deep vein thrombosis) History of malignant neoplasm of parotid gland Pleural effusion Surgical History History of coronary artery bypass graft History of right-sided carotid endarterectomy Hx of parotidectomy Family History Other Heart disease Social History Smoking Status: Former smoker Tobacco Type: Cigarettes Hx Alcohol Use: No Hx Substance Use: No Preferred Language: Chinese Communication Ability: Effective Software Development Intern Required: No Beliefs That Will Affect Care: None marital status: Current Living Situation: Spouse Current Living Situation Comment: Home with Other Information That Helps Us Care for You: No Feels Safe at Home: Yes Safety Concerns: Feels Safe At This Time Assistive Devices: Cane, Denture - Upper, Denture - Lower and Hearing Aid - Right Physical Exam Constitutional: WD/WN, vitals as above Cardiovascular: RRR, no murmur, no edema Gastrointestinal (Abdomen): normal bowel sounds, soft, nontender, no hepatosplenomegaly Results & Data ([facility]) Vital Signs (Past 12 Hours) Vital Signs Temp Pulse Resp BP Pulse Ox 12/30/20 08:45 18 94 12/30/20 08:35 20 84 L 12/30/20 08:05 36.9 C 79 19 154/82 H 95 12/30/20 05:13 36.8 C 97 H 20 175/94 H 95 12/30/20 03:02 36.7 C 89 20 144/76 H 94
[2020-12-30] MEDS: ASPIRIN 325 MG ECTAB PO SCH (12:28)
--- NOTE | 2020-12-30 14:09 | Cardiology Consultation ---
Date of Consultation December 30, 2020 Assessment & Plan (1) Chronic diastolic heart failure: EKG tracing performed on presentation and again this morning reveals sinus rhythm with age-indeterminate anteroseptal infarct pattern (poor R wave progression anterior precordial leads) without polarization changes. A mild but flat elevation in his troponin I is noted, 0.062, and 0.055 NG per mL. The patient had transient chest tightness reminiscent of his typical angina pattern. He has a history of multivessel coronary heart disease and remote CABG 20 years ago, and there is no doubt that he has underlying obstructive coronary heart disease, but I do not think his current symptoms are suggestive of an acute coronary syndrome. Recommend ongoing observation today, and as long as he does not have a change in his cardiac status, he seems to be reasonable candidate to proceed with EUS to address his presenting complaint. With regards to his right pleural effusion, this had previously been addressed with thoracentesis. He has been followed closely by pulmonary and the admitting team has asked him to see the patient again. At this point, I think is reasonable to continue his furosemide. (2) Bloating: (3) Unable to eat: History of Present Illness Attending Physician: Janae Menard, DO History of Present Illness Enriqueta Chatterjee is an 89-year-old male seen in cardiology consultation per the request of Dr. Menard for the evaluation of chest tightness and mildly elevated troponin I. The patient's primary systems development manager is Dr Abisai Waller. The patient has a history of coronary heart disease with remote coronary artery bypass graft surgery in 2000. He presented via the emergency room with complaints of abdominal bloating and frequent belching. Overnight, he complained of a separate "chest tightness" that was relieved with sublingual nitroglycerin. During my assessment the patient was eating broth for his noontime meal and he was perfectly comfortable from a chest pain standpoint. He noted ongoing sensation of abdominal fullness and belching. Recent issues include chronic diastolic heart failure with Right pleural effusion for which he underwent thoracentesis on 09/28/2020 yielding 950 mL of transudate of fluid. He had recently been found to have a small right pneumothorax on chest x-ray, but on repeat CT performed 12/25/2020, no evidence of pneumothorax was noted. Residual moderate right pleural effusion is noted. Patient however describes that his breathing is labored. He has also been found to have a mediastinal mass biopsy via EUS had tentatively been planned. He states that it is not completely unusual for him to take an additional nitroglycerin dose at home, perhaps once a month. Allergies Allergy/AdvReac Type Severity Reaction Status Date / Time No Known Allergies Allergy Unknown Verified 12/29/20 16:19 Home Medications Medication Instructions Recorded Confirmed Type PreserVision AREDS 1 cap PO BID 09/27/20 12/29/20 History allopurinol 100 mg PO QAM 09/27/20 12/29/20 History aspirin 325 mg PO QDL 09/27/20 12/29/20 History simvastatin 10 mg PO DAILY 09/27/20 12/29/20 History tamsulosin 0.4 mg PO DAILY 09/27/20 12/29/20 History Incruse Ellipta 1 inh INHALATION QPM 11/05/20 12/29/20 History finasteride 5 mg PO DAILY 11/05/20 12/29/20 History gabapentin 100 mg PO BID 11/05/20 12/29/20 History xpnyuajbidef-ylgoqzpd-gkzqih 1 tab PO QAM 11/05/20 12/29/20 History omega-3 fatty acids-fish oil [Fish 1 cap PO QAM 11/05/20 12/29/20 History Oil] acetaminophen 500 mg PO Q6H PRN 12/25/20 12/29/20 History benzonatate 100 mg PO BID PRN 12/25/20 12/29/20 History furosemide 20 mg PO QAM 12/25/20 12/29/20 History metoprolol succinate [Toprol XL] 50 mg PO QAM 12/25/20 12/29/20 History nitroglycerin 0.4 mg SUBLINGUAL DAILY PRN 12/25/20 12/29/20 History omeprazole 20 mg PO QAM 12/25/20 12/29/20 History polyethylene glycol 3350 [Miralax] 17 g PO QAM 12/25/20 12/29/20 History simethicone 80 mg PO TID PRN 12/25/20 12/29/20 History Patient History Medical History Abdominal pain Carotid stenosis COPD (chronic obstructive pulmonary disease) History of DVT (deep vein thrombosis) History of malignant neoplasm of parotid gland Pleural effusion Surgical History History of coronary artery bypass graft History of right-sided carotid endarterectomy Hx of parotidectomy Family History Other Heart disease Social History Smoking Status: Former smoker Tobacco Type: Cigarettes Hx Alcohol Use: No Hx Substance Use: No Preferred Language: Latvian Communication Ability: Effective Metal Furniture Assembler Required: No Beliefs That Will Affect Care: None marital status: Current Living Situation: Spouse Current Living Situation Comment: Home with Other Information That Helps Us Care for You: No Feels Safe at Home: Yes Safety Concerns: Feels Safe At This Time Assistive Devices: Cane, Denture - Upper, Denture - Lower and Hearing Aid - Right Review of Systems Review of Systems: All systems reviewed & are unremarkable except as noted in HPI & below Physical Exam Physical Exam: Temp Pulse Resp BP Pulse Ox 36.9 C 77 18 135/77 92 12/30/20 11:19 12/30/20 11:19 12/30/20 11:19 12/30/20 11:19 12/30/20 11:19 Constitutional: WD/WN, vitals as above Respiratory: Decreased breath sounds at the right base and mid right lung field, clear left lung Cardiovascular: Rate/Rhythm: regular rhythm Heart Sounds: no murmur Vessels: no JVD Extremities: no edema Neurologic: PERRL, EOMI, accommodation nl, no face palsy, no dysarthria Results & Data ([facility]) Vital Signs (Past 12 Hours) Vital Signs Temp Pulse Pulse Resp BP Pulse Ox 12/30/20 11:19 36.9 C 77 18 135/77 92 12/30/20 08:45 18 94 12/30/20 08:35 20 84 L 12/30/20 08:05 36.9 C 79 19 154/82 H 95 12/30/20 08:00 79 12/30/20 05:13 36.8 C 97 H 20 175/94 H 95 12/30/20 03:02 36.7 C 89 20 144/76 H 94 Laboratory Results Cardiac Enzymes 12/29/20 12/30/20 12/30/20 Range/Units 15:35 06:38 06:38 AST 32 25 (15-37) U/L Troponin I 0.062 H* (0-0.045) ng/ml 12/30/20 Range/Units 11:37 AST (15-37) U/L Troponin I 0.055 H* (0-0.045) ng/ml Coagulation 12/30/20 Range/Units 06:38 APTT 24.0 (21.0-31.0) Seconds CBC 12/29/20 12/30/20 Range/Units 15:35 06:38 WBC 5.12 4.28 L (4.8-10.8) K/uL RBC 4.79 4.32 L (4.7-6.1) M/uL Hgb 15.9 14.1 (14.0-18.0) g/dL Hct 47.8 43.2 (42-52) % Plt Count 118 L 100 L (130-400) K/uL Neut # (Auto) 3.65 (1.4-6.5) K/uL Lymph # (Auto) 0.73 L (1.2-3.4) K/uL Humphreys # (Auto) 0.68 H (0.11-0.59) K/uL Eos # (Auto) 0.03 (0-0.5) K/uL Baso # (Auto) 0.03 (0-0.2) K/uL Comprehensive Metabolic Panel 12/29/20 12/30/20 Range/Units 15:35 06:38 Sodium 140 143 (136-145) mmol/L Potassium 3.9 3.7 (3.5-5.1) mmol/L Chloride 104 108 H (98-107) mmol/L Carbon Dioxide 33 H 30 (21-32) mmol/L BUN 19 H 17 (7-18) mg/dl Creatinine 1.15 0.94 (0.6-1.4) mg/dl Glucose 97 80 (70-99) mg/dl Calcium 9.1 8.8 (8.5-10.1) mg/dl AST 32 25 (15-37) U/L ALT 24 18 (12-78) U/L Alkaline Phosphatase 137 H 109 (45-117) U/L Total Protein 7.5 6.2 L (6.4-8.2) gm/dl Albumin 3.6 2.9 L (3.4-5.0) gm/dl Intake and Output 12/29/20 12/30/20 12/30/20 22:59 06:59 14:59 Intake Total 500 / 1500 1000 / 1500 205.833 / 205.833 Output Total Balance 500 / 1500 1000 / 1500 204.833 / 204.833 Intake: IV 500 / 1500 1000 / 1500 205.833 / 205.833 Sodium Chloride 0.9% 1000ML 1, 1000 / 1000 205.833 / 205.833 000 ml @ 50 mls/hr IV .Q20H ISHA Rx#:[id number] Sodium Chloride 0.9% 500 ml @ 500 / 500 999 mls/hr IV .Q31M STA Rx#: [id number] Output: # Bowel Movements Other: Other Intake Source NPO NPO # Unmeasured Voids 1 Weight 86 kg Weight Measurement Method Standing Scale
[2020-12-30] MEDS: UMECLIDINIUM BROMIDE 62.5MCG/BLISTER 7 PUFFS/INHALER INH SCH (20:58)
--- NOTE | 2020-12-31 06:04 | Electrocardiogram Report ---
Test Reason : Blood Pressure : / mmHG Vent. Rate : 083 BPM Atrial Rate : 083 BPM P-R Int : 160 ms QRS Dur : 076 ms QT Int : 418 ms P-R-T Axes : 026 -33 021 degrees QTc Int : 491 ms Normal sinus rhythm Left axis deviation Anteroseptal infarct (cited on or before 01-MAY-2008) Prolonged QT Inferior infarct Abnormal ECG When compared with ECG of 25-DEC-2020 17:16, Questionable change in initial forces of Septal leads Nonspecific T wave abnormality now evident in Inferior leads Confirmed by Rowdy Mason ([id number]) on 12/31/2020 6:04:22 AM Referred By: REFERRED SELF Confirmed By:Rowdy Mason
--- NOTE | 2020-12-31 06:26 | Electrocardiogram Report ---
Test Reason : Blood Pressure : / mmHG Vent. Rate : 091 BPM Atrial Rate : 091 BPM P-R Int : 178 ms QRS Dur : 078 ms QT Int : 390 ms P-R-T Axes : 036 -37 073 degrees QTc Int : 479 ms Normal sinus rhythm Left axis deviation Low voltage QRS Anteroseptal infarct Possible Inferior infarct Abnormal ECG When compared with ECG of 29-DEC-2020 15:47, No significant change was found Confirmed by Rowdy Mason ([id number]) on 12/31/2020 6:26:09 AM Referred By: REFERRED SELF Confirmed By:Rowdy Mason
[2020-12-31] MEDS: PANTOprazole 40 MG in SYRINGE 0 ML IV SCH (08:19)
[2020-12-31] MEDS: allopurinoL 100 MG TAB PO SCH (08:38)
[2020-12-31] MEDS: FINASTERIDE 5 MG TAB PO SCH (08:40)
[2020-12-31] MEDS: GABAPENTIN 100 MG CAP PO SCH (08:45)
[2020-12-31] MEDS: METOPROLOL SUCC 50MG EXT REL TAB PO SCH (08:48)
[2020-12-31] MEDS: CEROVITE ADV FORMULA TAB PO SCH (08:51)
[2020-12-31] MEDS: SIMVASTATIN 10 MG TAB PO SCH (08:52)
[2020-12-31] MEDS: TAMSULOSIN HCL 0.4 MG CAP PO SCH (08:53)
[2020-12-31] MEDS ORDERED: FUROSEMIDE 40 MG in SYRINGE 0 ML IV SCH (09:00)
--- NOTE | 2020-12-31 09:19 | Gastroenterology Progress Note ---
Date of Service December 31, 2020 Assessment & Plan (1) Bloatin89 year old male w/ lower abdominal bloating, paraesophageal lesion planned for EGD today. NPO for EGD Plan for EUS tuesday If able to tolerating PO intake can plan for OP colonoscopy Admission and Anticipated Discharge Date Admission Date: December 30, 2020 Supervising Physician Co-Signing Physician Notes Attending attestation I have seen, examined this patient, and agree with the findings and above by our mid-level provider YENI Vicente, with the following additions: Had plan for EGD today, however anesthesia canceled the case given his oxygen as well as cardiac issues going on. Patient is now eating and doing okay. He is scheduled for EUS on Tuesday. Would continue to work-up his need for oxygen, follow-up final cardiology recommendations, and will plan for procedure as scheduled on Tuesday inpatient versus outpatient pending disposition. Subjective pt was seen and evaluated, chart reviewed no acute concerns this am. less bloating. no pain Review of Systems Review of Systems: All systems reviewed & are unremarkable except as noted in HPI & below Physical Exam Constitutional: WD/WN, vitals as above + ill appearing (chronically ill); no acute distress Neck: trachea midline Respiratory: normal respiratory effort, lungs clear to auscultation Cardiovascular: RRR, no murmur, no edema Gastrointestinal (Abdomen): normal bowel sounds, soft, nontender, no hepatosplenomegaly Skin: no rashes, warm and dry Results & Data ([facility]) Vital Signs (Past 12 Hours) Vital Signs Temp Pulse Pulse Pulse Resp BP Pulse Ox 12/31/20 07:39 36.3 C L 94 H 23 132/70 93 12/31/20 04:06 36.6 C 76 16 131/74 93 12/31/20 00:04 90 12/30/20 22:37 36.9 C 81 16 142/77 H 94 12/30/20 22:20 78 Laboratory Results 12/30/20 12/30/20 Range/Units 11:37 06:38 Troponin I 0.055 H* (0-0.045) ng/ml NT-Pro-B Natriuret Pep 1758 (0-1800) pg/ml
[2020-12-31] MEDS ORDERED: PROPOFOL IV EMULSION 10 MG/ML 20 ML VIAL IV ONE (10:13)
[2020-12-31] MEDS ORDERED: LIDOCAINE 2% 2 ML VIAL/AMP(20MG/ML) INFIL ONE (10:13)
--- NOTE | 2020-12-31 10:26 | Cardiology Progress Note ---
Date of Service December 31, 2020 Assessment & Plan (1) Chronic diastolic heart failure: Patient appears compensated. With evidence of persistent right pleural effusion recommend continuing intravenous Lasix. Monitor fluid balance, daily weight, GFR, and electrolytes. (2) Pleural effusion: Continue IV Lasix. (3) Elevated troponin I level: Mildly elevated, however, remain flat. No recurrent chest discomfort since admission. Echocardiogram revealing hyperdynamic left ventricular function without regional wall motion abnormality. (4) Preop cardiovascular exam: Patient appears to be moderate, acceptable cardiovascular risk for EUS. Continue metoprolol uninterrupted perioperatively. Admission and Anticipated Discharge Date Admission Date: December 30, 2020 Subjective Patient seen and examined the bedside. N.p.o. this a.m. awaiting EGD. Denies chest pain or shortness of breath. Abdominal bloating unchanged. No palpitations or lightheadedness. Telemetry reveals sinus rhythm with heart rate ranging from 70-100 bpm. Fluid balance -837 cc. Review of Systems Review of Systems: All systems reviewed & are unremarkable except as noted in Subjective Physical Exam Constitutional: well developed and well nourished; no acute distress Respiratory: normal respiratory effort; no respiratory distress and no labored breathing Cardiovascular: Rate/Rhythm: regular rate and regular rhythm Heart Sounds: normal S1 and normal S2; no murmur Vessels: radial pulses present; no JVD and no carotid bruit Extremities: no edema Gastrointestinal (Abdomen): Inspection/Auscultation: normal bowel sounds; abdomen not distended Percussion/Palpation: abdomen soft; abdomen nontender, no guarding and abdomen not rigid Neurologic: moves all extremities; no focal motor deficits Motor/Sensory: no tremor Psychiatric: A+Ox3, euthymic affect Results & Data ([place]) Vital Signs (Past 12 Hours) Vital Signs Temp Pulse Pulse Pulse Resp BP Pulse Ox 12/31/20 09:00 79 12/31/20 07:39 36.3 C L 94 H 23 132/70 93 12/31/20 04:06 36.6 C 76 16 131/74 93 12/31/20 00:04 90 12/30/20 22:37 36.9 C 81 16 142/77 H 94 12/30/20 22:20 78
--- NOTE | 2020-12-31 10:27 | Communication Note ---
Date of Service: December 31, 2020 89yo M admitted with abdominal bloating , poor appetite noted to have paraesophageal lesion with mediastinal mass GI been following pt will need EGD and EUS for paraesophageal mass biopsy plan to do both procedure in out patient -[facility] GI clinic this week inpatient EGD cancelled today ( to limit multiple anesthesia exposure ) ordered for diet pt is ordered 2 step to assess for home 02 need . PT/OT eval requested plan to discharge home later today or tomorrow , depending how pt tolerates diet and performance in PT/OT Daughter Rocio -updated over phone Margret Sierra MD
[2020-12-31] MEDS: ASPIRIN 325 MG ECTAB PO SCH (10:50)
--- NOTE | 2020-12-31 14:19 | Hospitalist Progress Note ---
Date of Service December 31, 2020 Assessment & Plan (1) Postprandial bloating: Appreciate input from GI. Patient had CT abdomen pelvis done this week showed no abdominal pathology. 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 Possible causing the GI symptoms? Patient denies of any dysphagia, no difficulty in swallowing. Patient is scheduled to have EGD, and will need endoscopic ultrasound with biopsy of para esophageal mass, procedure scheduled for Tuesday at [facility] to be discharged home today Significant weight loss: Patient does admit to 10 lbs weight loss in the last two months. 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 . (3) Hypertension: Continue outpatient medications (4) Pleural effusion: History of chronic diastolic heart failure: Appreciate input from cardiology, patient does not appear to be volume overloaded, nevertheless treated with 1 dose of IV Lasix given evidence of persistent right-sided pleural effusion Patient is on 40 mg p.o. Lasix chronically No complaint of orthopnea, no chest pain Elevated troponin I level: Mildly elevated, appreciate input from GI no recurrent chest discomfort since admission. Echocardiogram revealing hyperdynamic left ventricular function without regional wall motion abnormality. Preop cardiovascular exam: Patient appears to be moderate, acceptable cardiovascular risk for EUS/and EGD. Patient should continue metoprolol uninterrupted perioperatively. Persistent right-sided pleural effusion Seen by pulmonology last week and felt to be asymptomatic. Status post thoracentesis last week, which showed transudative pleural effusion without any evidence of malignant cells, possible secondary to diastolic heart failure. He does not appear to be any decompensated CHF, no evidence of systemic volume overload, Patient will be continued with outpatient diuretics, Lasix Repeat chest x-ray in 1 week to assess for resolution Echo as above: Chronic respiratory failure: Possible secondary to right-sided pleural effusion, atelectasis: Two-step exercise showed in room air resting desaturation 87%, requiring 2 L oxygen supplemental Prescription given for 2 L continuous home O2. Portable oxygen tank will be delivered to the patient room prior to discharge (5) COPD (chronic obstructive pulmonary disease): chronic, stable. Continue Ellipta inhaler (6) DVT prophylaxis: DVT Ppx: SCDs for now Code status: FULL PCP: Hospital follow-up scheduled with Dr. Murray in 1 week Dispo: Patient is stable to be discharged home, arrangement made for home health, home oxygen Admission and Anticipated Discharge Date Admission Date: December 30, 2020 Subjective Follow-up visit for postprandial abdominal bloating/hypoxia/right-sided pleural effusion/ EGD been canceled this morning, Outpatient EGD and EUS scheduled for next Tuesday. Patient reports feeling the same, tolerated lunch, has postprandial bloating, which helps after burping, no pain or discomfort no nausea or vomiting Denies of any shortness of breath, chest pain, no cough no fever or chills On 2 L oxygen via nasal cannula, two-step exercise noted to have desaturation to 87% at rest, SPO2 improved to 95% with 2 L oxygen supplement Patient is comfortable to have EGD and EUS to be done outpatient. Hoping to go home today, Patient able to stand up on his own, to couple of steps at bedside, without any dizzy spell or lightheadedness, functional status back to baseline Plan to discharge home today with home O2, daughter Rocio updated over the phone Review of Systems Review of Systems: All systems reviewed & are unremarkable except as noted in Subjective Physical Exam Physical Exam: Physical exam: General: No acute distress, alert awake oriented x3 HEENT: PERRLA, EOMI, Heart: Regular S1-S2, no carotid bruit, no JVD, no lower extremity edema Lungs: Rales noted on right lung base, no cough no wheeze, no respiratory distress Abdomen: Soft nontender, no organomegaly Extremity: No cyanosis, no deformity, normal strength 5 out of 5 with upper and lower Neuro: No focal neurological deficit normal speech, normal visual field, Motor strength : normal both upper and lower extremity, sensation intact Psych: Alert awake oriented x3, normal affect Results & Data Results & Data ([facility]) Vital Signs (Past 12 Hours) Vital Signs Temp Pulse Pulse Pulse Pulse Pulse Pulse 12/31/20 11:44 88 105 H 98 H 12/31/20 11:19 36.4 C L 92 H 12/31/20 09:00 79 12/31/20 07:39 36.3 C L 94 H 12/31/20 04:06 36.6 C 76 Pulse Resp Resp Resp Resp Resp BP 12/31/20 11:44 91 H 16 20 20 16 12/31/20 11:19 25 H 12/31/20 09:00 12/31/20 07:39 23 132/70 12/31/20 04:06 16 131/74 BP Pulse Ox Pulse Ox Pulse Ox Pulse Ox Pulse Ox 12/31/20 11:44 92 94 94 87 L 12/31/20 11:19 149/81 H 92 12/31/20 09:00 12/31/20 07:39 93 12/31/20 04:06 93 (1) Hypertension Hypertension type: unspecified Qualified Code(s): I10 - Essential (primary) hypertension
--- NOTE | 2020-12-31 14:37 | Pulmonology Progress Note ---
Date of Service December 31, 2020 Assessment & Plan (1) Acute respiratory failure with hypoxia: CT chest 12/25/2020 personally reviewed:Right-sided pleural effusion is appreciated again. No mediastinal lymphadenopathy unchanged. 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 --Right-sided pleural effusion S/p thoracentesis 09/28/2020 950 mL of serosanguineous fluid was removed, transudative as per lights criteria, cytology negative Pleural fluid: LDH 96, total protein 3.5, glucose 113, pH 7.37 Serum: LDH 210, total protein 6.6 90% lymphocytes Etiology is likely diastolic CHF. Patient did have a spontaneous pneumothorax back in November when he had a chest x- ray done. It resolved on the repeat chest x-ray. This was not because of thoracentesis which was done back in September. --Acute hypoxic respiratory failure Seems to be coming from likely diastolic CHF given the pleural effusion as well as abdominal distention patient not able to take deep breaths Diuretics to keep the patient negative balance Continue with O2 supplementation to keep oxygen saturation between 88-92% --COPD Gold class B Approximately [id number] smoking history Quit at the age of 51 Continue with Incruse --Abnormal chest CT Patient has a soft tissue opacity in the posterior mediastinal area in the esophagus Unfortunately this is not reachable by pulmonary intervention EGD could be thought of Plan: In/out: -1667, urine output 2497 Continue with diuretics IV. Patient was saturating 94% on 2 L nasal cannula at the time of examination. I took him off oxygen and he was still saturating 91-92% Patient will benefit from 2 step prior to discharge. No plan for thoracentesis right now Please note the above document was generated using voice recognition software. It may contain grammatical, syntax or spelling errors.Any formal questions or concerns about the content, text or information contained within the body of this dictation should be directly addressed to the provider for clarification. (2) Pleural effusion: (3) COPD (chronic obstructive pulmonary disease): Admission and Anticipated Discharge Date Admission Date: December 30, 2020 Subjective Patient seen and examined at bedside. NAD, [place] overnight. Patient was upset today as he was supposed to have procedure done today which was cancelled. He says his breathing is hard only when his belly is distended. He denies any cough. No CP, No URIAS. No diarrhea. + flatulence. Review of Systems Review of Systems: All systems reviewed & are unremarkable except as noted in Subjective Physical Exam Physical Exam: Constitutional: No acute distress HEENT: EOMI, PERRLA Respiratory system: Decreased air entry in the right side, no wheeze, no rhonchi, positive crackles bilaterally CVS: S1-S2 positive, no murmurs or gallops Abdomen: Soft, nontender, nondistended, positive bowel sounds x4 Extremities: +2 pulses bilaterally radialis/ dorsalis pedis, no cyanosis, +1 pitting edema bilateral lower extremity Neuro: Awake alert oriented x3 Psych: Normal mood and affect G/U: No [place] Skin: no rashes, warm and dry Lymphatic: no cervical or axillary lymphadenopathy Results & Data Results & Data ([facility]) Vital Signs (Past 12 Hours) Vital Signs Temp Pulse Pulse Pulse Pulse Pulse Pulse 12/31/20 11:44 88 105 H 98 H 12/31/20 11:19 36.4 C L 92 H 12/31/20 09:00 79 12/31/20 07:39 36.3 C L 94 H 12/31/20 04:06 36.6 C 76 Pulse Resp Resp Resp Resp Resp BP 12/31/20 11:44 91 H 16 20 20 16 12/31/20 11:19 25 H 12/31/20 09:00 12/31/20 07:39 23 132/70 12/31/20 04:06 16 131/74 BP Pulse Ox Pulse Ox Pulse Ox Pulse Ox Pulse Ox 12/31/20 11:44 92 94 94 87 L 12/31/20 11:19 149/81 H 92 12/31/20 09:00 12/31/20 07:39 93 12/31/20 04:06 93 12/30/20 06:38 12/30/20 06:38 PG Care Time/CCT Total # of Minutes Spent Total Time Spent with Patient: Total time spent is greater than 50% in coordination of care (as documented) at patient's floor/unit and/or counseling patient: Coding Level of Care Code 58799 Subseq Hosp Care Lvl 3 Diagnoses Acute respiratory failure with hypoxia J96.01 Pleural effusion J90 COPD (chronic obstructive pulmonary disease) J44.9
--- NOTE | 2020-12-31 14:43 | Discharge Summary ---
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 Was seen in clinic for this at the beginning of December and was directed to take MiraLAX once daily as well as simethicone 80 mg 3 times daily as needed. Symptoms did not improve and was admitted for further workup. GI service evaluated and scheduled outpatient EGD at the beginning of GI to rule out gastric outlet obstruction. 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 Symptoms have worsened since returning home, per patient, who now feels bloated even after a few sips of water. Has not been able to tolerate much of anything p.o. and is lost 5 pounds since discharge on Tuesday per daughter at bedside. Denies any reagan abdominal pain or nausea but more so endorses general discomfort and a feeling of fullness with short-term relief after belching or passing gas. Had a small BM earlier today. Denies any fever, chills, headache, lightheadedness, chest pain, shortness of breath or dysuria. Principal Diagnosis POST PRANDIAL BLOATING /ABDOMINAL DISCOMFORT RIGHT SIDED PLEURAL EFFUSION CHRONIC HYPOXEMIC RESPIRATORY FAILURE -NEEDS HOME OXYGEN 2 L VIA NASAL CANULA MEDIASTINAL /PARAESOPHAGEAL MASS NEEDS EGD /ENDOSCOPIC ULTRASOUND AND BIOPSY Discharge Exam Physical exam: General: No acute distress, alert awake oriented x3 HEENT: PERRLA, EOMI, Heart: Regular S1-S2, Lungs: Clear to auscultate, no wheeze or rales Abdomen: Soft nontender, mildly distended Extremity: No cyanosis, no deformity, Neuro: No focal neurological deficit normal speech, Psych: Alert awake oriented x3, normal affect Discharge Data Allergies Allergy/AdvReac Type Severity Reaction Status Date / Time No Known Allergies Allergy Unknown Verified 01/01/21 10:37 Consultations 12/29/20 18:13 Consult Gastroenterology Routine 12/30/20 08:24 Consult Cardiology Routine 12/30/20 09:09 Consult Pulmonology Routine Procedures Performed Operation Date: 12/31/20 16:30 <No data on this case meets the specified criteria> Hospital Course (1) Postprandial bloating: Appreciate input from GI. Patient had CT abdomen pelvis done this week showed no abdominal pathology. 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 Possible causing the GI symptoms? Patient denies of any dysphagia, no difficulty in swallowing. Patient is scheduled to have EGD, and will need endoscopic ultrasound with biopsy of para esophageal mass, procedure scheduled for Tuesday at [facility] to be discharged home today Significant weight loss: Patient does admit to 10 lbs weight loss in the last two months. 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 . (3) Hypertension: Continue outpatient medications (4) Pleural effusion: History of chronic diastolic heart failure: Appreciate input from cardiology, patient does not appear to be volume overloaded, nevertheless treated with 1 dose of 40 mg IV Lasix given evidence of persistent right-sided pleural effusion Patient was on 20 mg p.o. Lasix daily: Dose increased to 40 mg p.o. daily No complaint of orthopnea, no chest pain Elevated troponin I level: Mildly elevated, appreciate input from GI no recurrent chest discomfort since admission. Echocardiogram revealing hyperdynamic left ventricular function without regional wall motion abnormality. Preop cardiovascular exam: Patient appears to be moderate, acceptable cardiovascular risk for EUS/and EGD. Patient should continue metoprolol uninterrupted perioperatively. Persistent right-sided pleural effusion Seen by pulmonology last week and felt to be asymptomatic. Status post thoracentesis last week, which showed transudative pleural effusion without any evidence of malignant cells, possible secondary to diastolic heart failure. He does not appear to be any decompensated CHF, no evidence of systemic volume overload, Patient will be continued with outpatient diuretics, Lasix Repeat chest x-ray in 1 week to assess for resolution Echo as above: Chronic respiratory failure: Possible secondary to right-sided pleural effusion, atelectasis: Two-step exercise showed in room air resting desaturation 87%, requiring 2 L oxygen supplemental Prescription given for 2 L continuous home O2. Portable oxygen tank will be delivered to the patient room prior to discharge (5) COPD (chronic obstructive pulmonary disease): chronic, stable. Continue Ellipta inhaler (6) DVT prophylaxis: DVT Ppx: SCDs for now Code status: FULL PCP: Hospital follow-up scheduled with Dr. Murray in 1 week Dispo: Patient is stable to be discharged home, arrangement made for home health, home oxygen Total Time Total Time Spent Total Time Spent (In Minutes): approx 35 min Total Time Includes: Examination of the Patient, Discharge Planning, Medication Reconciliation and Communication With Other Providers Discharge Plan Discharge Items Patient Disposition: Home - Home Health Services Reason For Visit: POSTPRANDIAL BLOATING Discharge Diagnosis: POST PRANDIAL BLOATING /ABDOMINAL DISCOMFORT RIGHT SIDED PLEURAL EFFUSION CHRONIC HYPOXEMIC RESPIRATORY FAILURE -NEEDS HOME OXYGEN 2 L VIA NASAL CANULA MEDIASTINAL /PARAESOPHAGEAL MASS NEEDS EGD /ENDOSCOPIC ULTRASOUND AND BIOPSY Activity: Resume your previous activity Non-emergency contact: Primary Care Provider and Brazing Machine Operator Call non-emergency contact if: you have any medication questions and your symptoms worsen Follow-up/Referrals: Pritesh Murray DO [Primary Care Provider] - (Date & Time 01/05/2021 3:00 PM Provider Pritesh Murray DO Department General Internal Medicine [facility] ) Izzy Vaughn CRNP [Nurse Practitioner] - (Date & Time 01/07/2021 2:30 PM Provider YENI Do Department Gastroenterology, [facility] ) Jami Townsend MD [Hospitalist] - (Date & Time 01/02/2021 11:30 AM Provider Jami Townsend MD Department Endoscopy, [facility] ) Diet: Heart Healthy Diet Texture: Dental soft (bite-sized) Addtl Attending Provider Instructions: Please take all medications as instructed on discharge list below. It is recommended that you follow-up with your primary care physician within 1-2 weeks of hospital discharge to ensure you are still doing well. Please call if you have any questions or problems. You can reach a [facility] hospitalist on duty at [facility] 24 hours a day by calling [phone] Addtl Insurance Rater Provider Instructions: You are scheduled for EGD and Endoscopic Ultrasound on Tuesday01/02/2021@ 11:30 AM at [facility] GI suite , you should not eat or drink anything after midnight before the procedure , GI clinic will call and confirm with you for pre procedure instruction Please take your morning medication with sips of water during the day of procedure. Please use Oxygen 2 L with Nasal Canula all the time : both at rest /during sleep and with activity Repeat chest Xray in 1 week to assess improvement of right sided lung fluid Lab work: Basic metabolic panel in 1 week Pending Studies at Discharge: No Stand-Alone Forms: My [facility], Smoking Cessation Medications and DC Order Prescriptions: New furosemide 20 mg tablet 40 mg PO QAM 30 Days Qty: 60 RF: 0 Continued simvastatin 10 mg tablet 10 mg PO QPM RF: 0 tamsulosin 0.4 mg capsule 0.4 mg PO HS RF: 0 aspirin 325 mg Tablet 325 mg PO QDL RF: 0 gabapentin 100 mg capsule 100 mg PO BID RF: 0 finasteride 5 mg tablet 5 mg PO HS RF: 0 Incruse Ellipta 62.5 mcg/actuation blister with device 1 inh inhalation QPM RF: 0 omeprazole 20 mg capsule,delayed release(DR/EC) 20 mg PO QAM RF: 0 metoprolol succinate [Toprol XL] 50 mg tablet extended release 24 hr 50 mg PO QAM RF: 0 acetaminophen 500 mg Tablet 500 mg PO Q6H PRN (Reason: Pain) RF: 0 benzonatate 100 mg Capsule 100 mg PO BID PRN (Reason: Cough) RF: 0 nitroglycerin 0.4 mg Tablet, Sublingual 0.4 mg sublingual DAILY PRN (Reason: Chest Pain) RF: 0 polyethylene glycol 3350 [Miralax] 17 gram Powder In Packet 17 g PO QAM RF: 0 simethicone 80 mg Tablet 80 mg PO TID PRN (Reason: gas) RF: 0 Discharge Orders: Discharge Order (Routine); Ordered 12/31/20 Ordered By: Margret Sierra Admission Data Admit Date/Time: 12/30/20 08:25 Attending Provider: Margret Sierra Admit Provider: Domingo Whelan Primary Care Provider: Pritesh Murray Other Providers: Jami Townsend ; Abisai Waller ; Sean Wallace ; Janae Menard ; [facility] Healthcare Other Interventions: Discharge Summary Assessment (RN) Last Done: 12/31/20 14:39
--- NOTE | 2021-01-08 08:58 | Coding Query ---
CODING QUERY To promote full compliance with coding requirements relating to patient care, provider participation is requested in all cases of customer service leader uncertainty. Please assist us with the question(s) below: Coding Question(s): Your documentation states "Chronic Respiratory Failure" while Pulmonary states "Acute Respiratory Failure." Please clarify below: ( ) Patient with Chronic Respiratory Failure ( ) Patient with Acute Respiratory Failure ( ) Other Please Explain: I believe Dr Houser admitted this patient on please forward this to him tx Margret Sierra MD Thank you Darrel Ozuna Principal Diagnosis: "that condition established after study, to be chiefly responsible for occasioning the admission of the patient to the hospital for care." Co-Existing Principal Diagnosis: "when two or more diagnoses equally meet the criteria for principal diagnosis as determined by the circumstances of admission, diagnostic work up, and/or therapy provided, and the Alphabetic Index, Tabular List, or another coding guideline does not provide sequencing direction, any one of the diagnoses may be sequenced first." "When the physician has documented what appears to be a current diagnosis in the body of the record, but has not included the diagnosis in the final diagnostic statement, the physician should be asked whether the diagnosis should be added." (Source Coding Clinic 2 QTR90. p3-4) [facility]
--- NOTE | 2021-01-14 07:07 | Coding Query ---
CODING QUERY To promote full compliance with coding requirements relating to patient care, provider participation is requested in all cases of vacuum drier tender uncertainty. Please assist us with the question(s) below: Coding Question(s): Documentation states "Chronic Respiratory Failure" while Pulmonary states "Acute Respiratory Failure." Please clarify below: ( ) Patient with Chronic Respiratory Failure ( ) Patient with Acute Respiratory Failure (x ) Other Please Explain: I don't have chronic respiratory failure in my note, only that he has COPD. I did describe the oxygen needs in my note, but I didn't label it as acute respiratory failure. Notably I mentioned that he is not chronically on home oxygen. Pulmonology did give him the diagnosis of acute respiratory failure, which would seem to me this would be the appropriate diagnosis in this instance. Thank you. sms Thank you Darrel Ozuna Principal Diagnosis: "that condition established after study, to be chiefly responsible for occasioning the admission of the patient to the hospital for care." Co-Existing Principal Diagnosis: "when two or more diagnoses equally meet the criteria for principal diagnosis as determined by the circumstances of admission, diagnostic work up, and/or therapy provided, and the Alphabetic Index, Tabular List, or another coding guideline does not provide sequencing direction, any one of the diagnoses may be sequenced first." "When the physician has documented what appears to be a current diagnosis in the body of the record, but has not included the diagnosis in the final diagnostic statement, the physician should be asked whether the diagnosis should be added." (Source [facility] 2 QTR90. p3-4) SANTO
== END 2020-12-31 15:45 | disposition home health service (06) | DRG 391 ==
LOC: 2W 14:42 → ED 14:42 → SUATTDRO 17:27 → 2W 18:42 → SUATTDRO 12-30 08:25